=== PATIENT | female | born 1960 | race African-American/Black ===

== ENCOUNTER 2019-09-13 08:34 | Inpatient (IN) | payer OTHER ==
[2019-09-13] VITALS (13 sets, daily range): BP systolic 91–132; BP diastolic 55–94
[~2019-09-13] VITALS: Ht 165.1 cm; Wt 72.6 kg
--- OUTSIDE RECORDS SUMMARY | 2019-09-13 08:38 | XMS REPORT ---
Author Author [facility] Organization [facility] Address [address] [place] [address] [place] [id number] Phone Unavailable Care Team Providers Care Managed Care Director Name Role Phone JOEL VENTURA Attphys Unavailable JOEL VENTURA Admphys Unavailable Problems This patient has no known problems. Allergies, Adverse Reactions, Alerts This patient has no known allergies or adverse reactions. Medications This patient has no known medications. Procedures This patient has no known procedures. Results Test Description Test Time Test Comments Results Result Comments Source BLOOD CULTURE 2016-09-29 06:00:00 Test Item CULTURE (BEAKER) (test code = 1095) No growth in 5 days BLOOD [id number] 06:00:00* Test Item Value Reference Range Interpretation Comments CULTURE (BEAKER) (test code = 1095) No growth in 5 days POCT-GLUCOSE [id number] 05:39:00* Test Item Value Reference Range Interpretation Comments POC-GLUCOSE METER (BEAKER) (test code = 1538) 148 mg/dL 70-110 H TESTED AT [address] [address] POCT-GLUCOSE [id number] 05:28:00* Test Item Value Reference Range Interpretation Comments POC-GLUCOSE METER (BEAKER) (test code = 1538) 123 mg/dL 70-110 H TESTED AT [address] [address] POCT-GLUCOSE [id number] 05:04:00* Test Item Value Reference Range Interpretation Comments POC-GLUCOSE METER (BEAKER) (test code = 1538) 149 mg/dL 70-110 H TESTED AT [address] [address] POCT-GLUCOSE [id number] 05:02:00* Test Item Value Reference Range Interpretation Comments POC-GLUCOSE METER (BEAKER) (test code = 1538) 108 mg/dL 70-110 TESTED AT [address] [address] POCT-GLUCOSE [id number] 05:02:00* Test Item Value Reference Range Interpretation Comments POC-GLUCOSE METER (BEAKER) (test code = 1538) 140 mg/dL 70-110 H TESTED AT [facility] [address] [facility] [address] POCT-GLUCOSE [id number] 04:58:00* Test Item Value Reference Range Interpretation Comments POC-GLUCOSE METER (BEAKER) (test code = 1538) 186 mg/dL 70-110 H TESTED AT [facility] [address] [facility] [address] BASIC METABOLIC [id number] 15:14:00* Test Item Value Reference Range Interpretation Comments SODIUM (BEAKER) (test code = 381) 139 meq/L 136-145 POTASSIUM (BEAKER) (test code = 379) 3.5 meq/L 3.5-5.1 CHLORIDE (BEAKER) (test code = 382) 111 meq/L 98-107 H CO2 (BEAKER) (test code = 355) 20 meq/L 22-29 L BLOOD UREA NITROGEN (BEAKER) (test code = 354) 6 mg/dL 7-21 L CREATININE (BEAKER) (test code = 358) 0.62 mg/dL 0.57-1.25 GLUCOSE RANDOM (BEAKER) (test code = 652) 133 mg/dL 70-105 H CALCIUM (BEAKER) (test code = 697) 8.4 mg/dL 8.4-10.2 EGFR (BEAKER) (test code = 1092) 120 mL/min/1.73 sq m ESTIMATED GFR IS NOT ACCURATE CREATININE CLEARANCE IN PREDICTING GLOMERULAR FILTRATION RATE. ESTIMATED GFR IS NOT APPLICABLE FOR DIALYSIS PATIENTS. VANCOMYCIN LEVEL, [id number] 05:09:00* Test Item Value Reference Range Interpretation Comments VANCOMYCIN TROUGH (BEAKER) (test code = 522) 7.8 ug/mL 10.0-20.0 L CBC W/PLT COUNT & AUTO [id number] 01:43:00* Test Item Value Reference Range Interpretation Comments WHITE BLOOD CELL COUNT (BEAKER) (test code = 775) 7.6 K/ L 4.0- 10.0 RED BLOOD CELL COUNT (BEAKER) (test code = 761) 2.34 M/ L 4.00-5 .00 L HEMOGLOBIN (BEAKER) (test code = 410) 8.4 GM/DL 12.0-15.0 L HEMATOCRIT (BEAKER) (test code = 411) 23.8 % 36.0-45.0 L MEAN CORPUSCULAR VOLUME (BEAKER) (test code = 753) 102.0 fL 82. 0-99.0 H MEAN CORPUSCULAR HEMOGLOBIN (BEAKER) (test code = 751) 35.7 pg 27.0-33.0 H MEAN CORPUSCULAR HEMOGLOBIN CONC (BEAKER) (test code = 752) 35.1 GM/DL 32.0-36.0 RED CELL DISTRIBUTION WIDTH (BEAKER) (test code = 412) 11.8 % 10.3-14.2 PLATELET COUNT (BEAKER) (test code = 756) 186 K/CU MM 150-430 MEAN PLATELET VOLUME (BEAKER) (test code = 754) 6.5 fL 6.5-10 .5 NEUTROPHILS RELATIVE PERCENT (BEAKER) (test code = 429) 61 % LYMPHOCYTES RELATIVE PERCENT (BEAKER) (test code = 430) 20 % MONOCYTES RELATIVE PERCENT (BEAKER) (test code = 431) 16 % EOSINOPHILS RELATIVE PERCENT (BEAKER) (test code = 432) 3 % BASOPHILS RELATIVE PERCENT (BEAKER) (test code = 437) 0 % NEUTROPHILS ABSOLUTE COUNT (BEAKER) (test code = 670) K/ L 1.80-8.00 LYMPHOCYTES ABSOLUTE COUNT (BEAKER) (test code = 414) K/ L 1.48-4.50 MONOCYTES ABSOLUTE COUNT (BEAKER) (test code = 415) K/ L 0. 00-1.30 EOSINOPHILS ABSOLUTE COUNT (BEAKER) (test code = 416) K/ L 0.00-0.50 BASOPHILS ABSOLUTE COUNT (BEAKER) (test code = 417) K/ L 0. 00-0.20 CBC W/PLT COUNT & AUTO [id number] 05:51:00* Test Item Value Reference Range Interpretation Comments WHITE BLOOD CELL COUNT (BEAKER) (test code = 775) 8.3 K/ L 4.0- 10.0 RED BLOOD CELL COUNT (BEAKER) (test code = 761) 2.42 M/ L 4.00-5 .00 L HEMOGLOBIN (BEAKER) (test code = 410) 8.3 GM/DL 12.0-15.0 L HEMATOCRIT (BEAKER) (test code = 411) 24.6 % 36.0-45.0 L MEAN CORPUSCULAR VOLUME (BEAKER) (test code = 753) 102.0 fL 82. 0-99.0 H MEAN CORPUSCULAR HEMOGLOBIN (BEAKER) (test code = 751) 34.4 pg 27.0-33.0 H MEAN CORPUSCULAR HEMOGLOBIN CONC (BEAKER) (test code = 752) 33.8 GM/DL 32.0-36.0 RED CELL DISTRIBUTION WIDTH (BEAKER) (test code = 412) 11.7 % 10.3-14.2 PLATELET COUNT (BEAKER) (test code = 756) 180 K/CU MM 150-430 MEAN PLATELET VOLUME (BEAKER) (test code = 754) 7.5 fL 6.5-10 .5 NUCLEATED RED BLOOD CELLS (BEAKER) (test code = 413) 0 /100 WBC 0 -0 NEUTROPHILS RELATIVE PERCENT (BEAKER) (test code = 429) 69 % LYMPHOCYTES RELATIVE PERCENT (BEAKER) (test code = 430) 18 % MONOCYTES RELATIVE PERCENT (BEAKER) (test code = 431) 11 % EOSINOPHILS RELATIVE PERCENT (BEAKER) (test code = 432) 3 % BASOPHILS RELATIVE PERCENT (BEAKER) (test code = 437) 0 % NEUTROPHILS ABSOLUTE COUNT (BEAKER) (test code = 670) 5.73 K/ L 1.80-8.00 LYMPHOCYTES ABSOLUTE COUNT (BEAKER) (test code = 414) 1.46 K/ L 1.48-4.50 L MONOCYTES ABSOLUTE COUNT (BEAKER) (test code = 415) 0.92 K/ L 0. 00-1.30 EOSINOPHILS ABSOLUTE COUNT (BEAKER) (test code = 416) 0.21 K/ L 0.00-0.50 BASOPHILS ABSOLUTE COUNT (BEAKER) (test code = 417) 0.01 K/ L 0. 00-0.20 [id number] 05:51:00* Test Item Value Reference Range Interpretation Comments MAGNESIUM (BEAKER) (test code = 627) 2.3 mg/dL 1.6-2.6 BASIC METABOLIC [id number] 05:51:00* Test Item Value Reference Range Interpretation Comments SODIUM (BEAKER) (test code = 381) 138 meq/L 136-145 POTASSIUM (BEAKER) (test code = 379) 3.6 meq/L 3.5-5.1 CHLORIDE (BEAKER) (test code = 382) 108 meq/L 98-107 H CO2 (BEAKER) (test code = 355) 24 meq/L 22-29 BLOOD UREA NITROGEN (BEAKER) (test code = 354) 8 mg/dL 7-21 CREATININE (BEAKER) (test code = 358) 0.67 mg/dL 0.57-1.25 GLUCOSE RANDOM (BEAKER) (test code = 652) 136 mg/dL 70-105 H CALCIUM (BEAKER) (test code = 697) 8.1 mg/dL 8.4-10.2 L EGFR (BEAKER) (test code = 1092) 110 mL/min/1.73 sq m ESTIMATED GFR IS NOT ACCURATE CREATININE CLEARANCE IN PREDICTING GLOMERULAR FILTRATION RATE. ESTIMATED GFR IS NOT APPLICABLE FOR DIALYSIS PATIENTS. POCT-GLUCOSE [id number] 20:50:00* Test Item Value Reference Range Interpretation Comments POC-GLUCOSE METER (BEAKER) (test code = 1538) 124 mg/dL 70-110 H TESTED AT [address] [address] POCT-GLUCOSE [id number] 17:58:00* Test Item Value Reference Range Interpretation Comments POC-GLUCOSE METER (BEAKER) (test code = 1538) 141 mg/dL 70-110 H TESTED AT [address] [address] URINALYSIS W/ [id number] 17:32:00* Test Item Value Reference Range Interpretation Comments COLOR (BEAKER) (test code = 470) Yellow CLARITY (BEAKER) (test code = 469) Clear SPECIFIC GRAVITY UA (BEAKER) (test code = 468) 1.012 1.001-1 .035 PH UA (BEAKER) (test code = 467) 6.0 5.0-8.0 PROTEIN UA (BEAKER) (test code = 464) Negative Negative GLUCOSE UA (BEAKER) (test code = 365) Negative Negative KETONES UA (BEAKER) (test code = 371) Negative Negative BILIRUBIN UA (BEAKER) (test code = 462) Negative Negative BLOOD UA (BEAKER) (test code = 461) Negative Negative NITRITE UA (BEAKER) (test code = 465) Negative Negative LEUKOCYTE ESTERASE UA (BEAKER) (test code = 466) Negative Negat dwain UROBILINOGEN UA (BEAKER) (test code = 463) 0.2 mg/dL 0.2-1.0 RBC UA (BEAKER) (test code = 519) < /HPF WBC UA (BEAKER) (test code = 520) 1 /HPF MUCUS (BEAKER) (test code = 1574) Rare SQUAMOUS EPITHELIAL (BEAKER) (test code = 516) < /HPF SOURCE(BEAKER) (test code = 2795) Urine, Voided LACTIC ACID, VENOUS, WHOLE [id number] 13:25:00* Test Item Value Reference Range Interpretation Comments LACTATE BLOOD VENOUS (2) (BEAKER) (test code = 2872) 2.2 mmol/L 0 .5-2.2 Effective 08/19/2015: Units/Reference Range ChangeNew: 0.5-2.2 mmol/L Previous: 5 -20 mg/dLPOCT-GLUCOSE [id number] 12:23:00* Test Item Value Reference Range Interpretation Comments POC-GLUCOSE METER (BEAKER) (test code = 1538) 166 mg/dL 70-110 H TESTED AT [facility] [address] [facility] [address] POCT-GLUCOSE [id number] 08:05:00* Test Item Value Reference Range Interpretation Comments POC-GLUCOSE METER (BEAKER) (test code = 1538) 149 mg/dL 70-110 H TESTED AT [address] [address] CBC (HEMOGRAM ONLY)2016-09-23 05:57:00* Test Item Value Reference Range Interpretation Comments WHITE BLOOD CELL COUNT (BEAKER) (test code = 775) 9.6 K/ L 4.0- 10.0 RED BLOOD CELL COUNT (BEAKER) (test code = 761) 2.62 M/ L 4.00-5 .00 L HEMOGLOBIN (BEAKER) (test code = 410) 8.8 GM/DL 12.0-15.0 L HEMATOCRIT (BEAKER) (test code = 411) 26.4 % 36.0-45.0 L MEAN CORPUSCULAR VOLUME (BEAKER) (test code = 753) 101.0 fL 82. 0-99.0 H MEAN CORPUSCULAR HEMOGLOBIN (BEAKER) (test code = 751) 33.8 pg 27.0-33.0 H MEAN CORPUSCULAR HEMOGLOBIN CONC (BEAKER) (test code = 752) 33.5 GM/DL 32.0-36.0 RED CELL DISTRIBUTION WIDTH (BEAKER) (test code = 412) 11.6 % 10.3-14.2 PLATELET COUNT (BEAKER) (test code = 756) 131 K/CU MM 150-430 L MEAN PLATELET VOLUME (BEAKER) (test code = 754) 7.7 fL 6.5-10 .5 NUCLEATED RED BLOOD CELLS (BEAKER) (test code = 413) 0 /100 WBC 0 -0 [id number] 05:32:00* Test Item Value Reference Range Interpretation Comments MAGNESIUM (BEAKER) (test code = 627) 2.2 mg/dL 1.6-2.6 BASIC METABOLIC [id number] 05:32:00* Test Item Value Reference Range Interpretation Comments SODIUM (BEAKER) (test code = 381) 135 meq/L 136-145 L POTASSIUM (BEAKER) (test code = 379) 4.2 meq/L 3.5-5.1 CHLORIDE (BEAKER) (test code = 382) 104 meq/L 98-107 CO2 (BEAKER) (test code = 355) 25 meq/L 22-29 BLOOD UREA NITROGEN (BEAKER) (test code = 354) 8 mg/dL 7-21 CREATININE (BEAKER) (test code = 358) 0.64 mg/dL 0.57-1.25 GLUCOSE RANDOM (BEAKER) (test code = 652) 144 mg/dL 70-105 H CALCIUM (BEAKER) (test code = 697) 8.4 mg/dL 8.4-10.2 EGFR (BEAKER) (test code = 1092) 116 mL/min/1.73 sq m ESTIMATED GFR IS NOT ACCURATE CREATININE CLEARANCE IN PREDICTING GLOMERULAR FILTRATION RATE. ESTIMATED GFR IS NOT APPLICABLE FOR DIALYSIS PATIENTS. POCT-GLUCOSE [id number] 21:29:00* Test Item Value Reference Range Interpretation Comments POC-GLUCOSE METER (BEAKER) (test code = 1538) 177 mg/dL 70-110 H TESTED AT [facility] [address] [facility] [address] POCT-GLUCOSE [id number] 18:29:00* Test Item Value Reference Range Interpretation Comments POC-GLUCOSE METER (BEAKER) (test code = 1538) 181 mg/dL 70-110 H TESTED AT [facility] [address] [facility] [address] POCT-GLUCOSE [id number] 12:20:00* Test Item Value Reference Range Interpretation Comments POC-GLUCOSE METER (BEAKER) (test code = 1538) 176 mg/dL 70-110 H TESTED AT [facility] [address] [facility] [address] HEMOGLOBIN [id number] 10:30:00* Test Item Value Reference Range Interpretation Comments HEMOGLOBIN A1C (BEAKER) (test code = 368) 7.1 % 4.3-6.1 H POCT-GLUCOSE [id number] 08:06:00* Test Item Value Reference Range Interpretation Comments POC-GLUCOSE METER (BEAKER) (test code = 1538) 145 mg/dL 70-110 H TESTED AT [facility] [address] [facility] [address] TSH/FREE T4 IF [id number] 07:41:00* Test Item Value Reference Range Interpretation Comments THYROID STIMULATING HORMONE (BEAKER) (test code = 772) 1.20 uIU/mL 0.35-4.94 CBC (HEMOGRAM ONLY)2016-09-22 07:10:00* Test Item Value Reference Range Interpretation Comments WHITE BLOOD CELL COUNT (BEAKER) (test code = 775) 8.9 K/ L 4.0- 10.0 RED BLOOD CELL COUNT (BEAKER) (test code = 761) 2.91 M/ L 4.00-5 .00 L HEMOGLOBIN (BEAKER) (test code = 410) 9.8 GM/DL 12.0-15.0 L HEMATOCRIT (BEAKER) (test code = 411) 29.5 % 36.0-45.0 L MEAN CORPUSCULAR VOLUME (BEAKER) (test code = 753) 101.0 fL 82. 0-99.0 H MEAN CORPUSCULAR HEMOGLOBIN (BEAKER) (test code = 751) 33.8 pg 27.0-33.0 H MEAN CORPUSCULAR HEMOGLOBIN CONC (BEAKER) (test code = 752) 33.4 GM/DL 32.0-36.0 RED CELL DISTRIBUTION WIDTH (BEAKER) (test code = 412) 11.4 % 10.3-14.2 PLATELET COUNT (BEAKER) (test code = 756) 119 K/CU MM 150-430 L MEAN PLATELET VOLUME (BEAKER) (test code = 754) 8.0 fL 6.5-10 .5 NUCLEATED RED BLOOD CELLS (BEAKER) (test code = 413) 0 /100 WBC 0 -0 [id number] 06:44:00* Test Item Value Reference Range Interpretation Comments PHOSPHORUS (BEAKER) (test code = 604) 2.6 mg/dL 2.3-4.7 [id number] 06:44:00* Test Item Value Reference Range Interpretation Comments MAGNESIUM (BEAKER) (test code = 627) 1.9 mg/dL 1.6-2.6 BASIC METABOLIC [id number] 06:44:00* Test Item Value Reference Range Interpretation Comments SODIUM (BEAKER) (test code = 381) 134 meq/L 136-145 L POTASSIUM (BEAKER) (test code = 379) 4.0 meq/L 3.5-5.1 CHLORIDE (BEAKER) (test code = 382) 103 meq/L 98-107 CO2 (BEAKER) (test code = 355) 25 meq/L 22-29 BLOOD UREA NITROGEN (BEAKER) (test code = 354) 7 mg/dL 7-21 CREATININE (BEAKER) (test code = 358) 0.64 mg/dL 0.57-1.25 GLUCOSE RANDOM (BEAKER) (test code = 652) 131 mg/dL 70-105 H CALCIUM (BEAKER) (test code = 697) 8.7 mg/dL 8.4-10.2 EGFR (BEAKER) (test code = 1092) 116 mL/min/1.73 sq m ESTIMATED GFR IS NOT ACCURATE CREATININE CLEARANCE IN PREDICTING GLOMERULAR FILTRATION RATE. ESTIMATED GFR IS NOT APPLICABLE FOR DIALYSIS PATIENTS. LIPID [id number] 06:44:00* Test Item Value Reference Range Interpretation Comments TRIGLYCERIDES (BEAKER) (test code = 540) 103 mg/dL CHOLESTEROL (BEAKER) (test code = 631) 101 mg/dL HDL CHOLESTEROL (BEAKER) (test code = 976) 38 mg/dL LDL CHOLESTEROL CALCULATED (BEAKER) (test code = 633) 42 mg/dL Triglyceride Reference Range: Low Risk <150 Borderline 150-199 High Risk 200-499 Very High Risk >=500Cholesterol Reference Range: Low Risk <200 Borderline 200-239 High Risk >240HDL Cholesterol Reference Range: Low Risk >=60 High Risk <40LDL Cholesterol Reference Range: Optimal <100 Near Optimal 100-129 Borderline 130-159 High 160-189 Very High >=190 HEPATIC FUNCTION [id number] 06:44:00* Test Item Value Reference Range Interpretation Comments TOTAL PROTEIN (BEAKER) (test code = 770) 5.8 gm/dL 6.0-8.3 L ALBUMIN (BEAKER) (test code = 1145) 3.1 g/dL 3.5-5.0 L BILIRUBIN TOTAL (BEAKER) (test code = 377) 0.8 mg/dL 0.2-1.2 BILIRUBIN DIRECT (BEAKER) (test code = 706) 0.4 mg/dL 0.1-0.5 ALKALINE PHOSPHATASE (BEAKER) (test code = 346) 60 U/L 40-150 AST (SGOT) (BEAKER) (test code = 353) 34 U/L 5-34 ALT (SGPT) (BEAKER) (test code = 347) 19 U/L 6-55 POCT-GLUCOSE [id number] 21:51:00* Test Item Value Reference Range Interpretation Comments POC-GLUCOSE METER (BEAKER) (test code = 1538) 165 mg/dL 70-110 H TESTED AT [address] [address] POCT-GLUCOSE [id number] 16:59:00* Test Item Value Reference Range Interpretation Comments POC-GLUCOSE METER (BEAKER) (test code = 1538) 156 mg/dL 70-110 H TESTED AT [address] [address] POCT-GLUCOSE [id number] 12:25:00* Test Item Value Reference Range Interpretation Comments POC-GLUCOSE METER (BEAKER) (test code = 1538) 169 mg/dL 70-110 H TESTED AT [address] [address] POCT-GLUCOSE [id number] 07:50:00* Test Item Value Reference Range Interpretation Comments POC-GLUCOSE METER (BEAKER) (test code = 1538) 145 mg/dL 70-110 H TESTED AT [address] [address] POCT-GLUCOSE [id number] 06:23:00* Test Item Value Reference Range Interpretation Comments POC-GLUCOSE METER (BEAKER) (test code = 1538) 125 mg/dL 70-110 H TESTED AT [address] [address] POCT-GLUCOSE [id number] 04:41:00* Test Item Value Reference Range Interpretation Comments POC-GLUCOSE METER (BEAKER) (test code = 1538) 116 mg/dL 70-110 H TESTED AT [address] [address] POCT-GLUCOSE [id number] 03:44:00* Test Item Value Reference Range Interpretation Comments POC-GLUCOSE METER (BEAKER) (test code = 1538) 119 mg/dL 70-110 H TESTED AT [address] [address] POCT-GLUCOSE [id number] 03:44:00* Test Item Value Reference Range Interpretation Comments POC-GLUCOSE METER (BEAKER) (test code = 1538) 123 mg/dL 70-110 H TESTED AT [address] [address] POCT-GLUCOSE [id number] 03:44:00* Test Item Value Reference Range Interpretation Comments POC-GLUCOSE METER (BEAKER) (test code = 1538) 175 mg/dL 70-110 H TESTED AT [address] [address] BASIC METABOLIC [id number] 03:16:00* Test Item Value Reference Range Interpretation Comments SODIUM (BEAKER) (test code = 381) 138 meq/L 136-145 POTASSIUM (BEAKER) (test code = 379) 4.2 meq/L 3.5-5.1 Specimen slightly hemolyzed CHLORIDE (BEAKER) (test code = 382) 111 meq/L 98-107 H CO2 (BEAKER) (test code = 355) 20 meq/L 22-29 L BLOOD UREA NITROGEN (BEAKER) (test code = 354) 6 mg/dL 7-21 L CREATININE (BEAKER) (test code = 358) 0.67 mg/dL 0.57-1.25 Specimen slightly hemolyzed GLUCOSE RANDOM (BEAKER) (test code = 652) 115 mg/dL 70-105 H CALCIUM (BEAKER) (test code = 697) 7.8 mg/dL 8.4-10.2 L EGFR (BEAKER) (test code = 1092) 110 mL/min/1.73 sq m ESTIMATED GFR IS NOT ACCURATE CREATININE CLEARANCE IN PREDICTING GLOMERULAR FILTRATION RATE. ESTIMATED GFR IS NOT APPLICABLE FOR DIALYSIS PATIENTS. [id number] 03:00:00* Test Item Value Reference Range Interpretation Comments MAGNESIUM (BEAKER) (test code = 627) 2.4 mg/dL 1.6-2.6 Specimen slightly hemolyzed [id number] 03:00:00* Test Item Value Reference Range Interpretation Comments PHOSPHORUS (BEAKER) (test code = 604) 3.3 mg/dL 2.3-4.7 Specimen slightly hemolyzed CBC (HEMOGRAM ONLY)2016-09-21 02:54:00* Test Item Value Reference Range Interpretation Comments WHITE BLOOD CELL COUNT (BEAKER) (test code = 775) 9.3 K/ L 4.0- 10.0 RED BLOOD CELL COUNT (BEAKER) (test code = 761) 2.90 M/ L 4.00-5 .00 L HEMOGLOBIN (BEAKER) (test code = 410) 10.1 GM/DL 12.0-15.0 L HEMATOCRIT (BEAKER) (test code = 411) 29.3 % 36.0-45.0 L MEAN CORPUSCULAR VOLUME (BEAKER) (test code = 753) 101.0 fL 82. 0-99.0 H MEAN CORPUSCULAR HEMOGLOBIN (BEAKER) (test code = 751) 35.0 pg 27.0-33.0 H MEAN CORPUSCULAR HEMOGLOBIN CONC (BEAKER) (test code = 752) 34.6 GM/DL 32.0-36.0 RED CELL DISTRIBUTION WIDTH (BEAKER) (test code = 412) 11.6 % 10.3-14.2 PLATELET COUNT (BEAKER) (test code = 756) 110 K/CU MM 150-430 L MEAN PLATELET VOLUME (BEAKER) (test code = 754) 7.4 fL 6.5-10 .5 NUCLEATED RED BLOOD CELLS (BEAKER) (test code = 413) 0 /100 WBC 0 -0 0.00POCT-GLUCOSE [id number] 00:28:00* Test Item Value Reference Range Interpretation Comments POC-GLUCOSE METER (BEAKER) (test code = 1538) 156 mg/dL 70-110 H TESTED AT [address] [address] POCT-GLUCOSE [id number] 23:29:00* Test Item Value Reference Range Interpretation Comments POC-GLUCOSE METER (BEAKER) (test code = 1538) 184 mg/dL 70-110 H TESTED AT [address] [address] POCT-GLUCOSE [id number] 21:54:00* Test Item Value Reference Range Interpretation Comments POC-GLUCOSE METER (BEAKER) (test code = 1538) 138 mg/dL 70-110 H TESTED AT [address] [address] POCT-GLUCOSE [id number] 21:00:00* Test Item Value Reference Range Interpretation Comments POC-GLUCOSE METER (BEAKER) (test code = 1538) 158 mg/dL 70-110 H TESTED AT [address] [address] POCT-GLUCOSE [id number] 21:00:00* Test Item Value Reference Range Interpretation Comments POC-GLUCOSE METER (BEAKER) (test code = 1538) 172 mg/dL 70-110 H TESTED AT [address] [address] POCT-GLUCOSE [id number] 21:00:00* Test Item Value Reference Range Interpretation Comments POC-GLUCOSE METER (BEAKER) (test code = 1538) 96 mg/dL 70-110 TESTED AT [address] [address] POCT-GLUCOSE [id number] 21:00:00* Test Item Value Reference Range Interpretation Comments POC-GLUCOSE METER (BEAKER) (test code = 1538) 126 mg/dL 70-110 H TESTED AT [address] [address] POCT-GLUCOSE [id number] 17:34:00* Test Item Value Reference Range Interpretation Comments POC-GLUCOSE METER (BEAKER) (test code = 1538) 106 mg/dL 70-110 TESTED AT [address] [address] POCT-GLUCOSE [id number] 15:52:00* Test Item Value Reference Range Interpretation Comments POC-GLUCOSE METER (BEAKER) (test code = 1538) 157 mg/dL 70-110 H TESTED AT [address] [address] POCT-GLUCOSE [id number] 15:52:00* Test Item Value Reference Range Interpretation Comments POC-GLUCOSE METER (BEAKER) (test code = 1538) 122 mg/dL 70-110 H TESTED AT [place] [id number] [facility] [address] POCT-GLUCOSE [id number] 15:52:00* Test Item Value Reference Range Interpretation Comments POC-GLUCOSE METER (BEAKER) (test code = 1538) 144 mg/dL 70-110 H TESTED AT [address] [address] BLOOD GAS, [id number] 14:42:00* Test Item Value Reference Range Interpretation Comments PH ARTERIAL (BEAKER) (test code = 383) 7.40 7.35-7.45 PCO2 ARTERIAL (BEAKER) (test code = 384) 36 mmHg 35-45 PO2 ARTERIAL (BEAKER) (test code = 385) 148 mmHg 80-90 H O2 SATURATION ARTERIAL (BEAKER) (test code = 386) 98.9 % 96.0 -97.0 H HCO3 ARTERIAL (BEAKER) (test code = 388) 22 mmol/L 21-29 BASE EXCESS ARTERIAL (BEAKER) (test code = 387) -2.6 mmol/L -2.0-3 .0 L PATIENT TEMPERATURE (BEAKER) (test code = 1818) 37.0 C FIO2 (BEAKER) (test code = 1819) 40.0 % [id number] 11:41:00* Test Item Value Reference Range Interpretation Comments MAGNESIUM (BEAKER) (test code = 627) 3.4 mg/dL 1.6-2.6 H Specimen slightly hemolyzed [id number] 11:41:00* Test Item Value Reference Range Interpretation Comments PHOSPHORUS (BEAKER) (test code = 604) 3.3 mg/dL 2.3-4.7 Specimen slightly hemolyzed [id number] 11:41:00* Test Item Value Reference Range Interpretation Comments POTASSIUM (BEAKER) (test code = 379) 3.9 meq/L 3.5-5.1 Specimen slightly hemolyzed [id number] 11:41:00* Test Item Value Reference Range Interpretation Comments SODIUM (BEAKER) (test code = 381) 143 meq/L 136-145 [id number] 11:41:00* Test Item Value Reference Range Interpretation Comments GLUCOSE RANDOM (BEAKER) (test code = 652) 161 mg/dL 70-105 H Effective 03/04/2014: Reference Range Change-Adult onlyNew: 70-105 Previous: 70-110LACTIC ACID, ARTERIAL, WHOLE [id number] 11:28:00* Test Item Value Reference Range Interpretation Comments LACTATE BLOOD ARTERIAL (2) (BEAKER) (test code = 2874) 1.4 mmol/L 0.5-2.2 Specimen slightly hemolyzed Effective 08/19/2015: Units/Reference Range ChangeNew: 0.5-2.2 mmol/L Previous: 5 -20 mg/dLCBC W/PLT COUNT & AUTO [id number] 11:28:00* Test Item Value Reference Range Interpretation Comments WHITE BLOOD CELL COUNT (BEAKER) (test code = 775) 8.3 K/ L 4.0- 10.0 RED BLOOD CELL COUNT (BEAKER) (test code = 761) 2.86 M/ L 4.00-5 .00 L HEMOGLOBIN (BEAKER) (test code = 410) 9.9 GM/DL 12.0-15.0 L HEMATOCRIT (BEAKER) (test code = 411) 28.4 % 36.0-45.0 L MEAN CORPUSCULAR VOLUME (BEAKER) (test code = 753) 99.5 fL 82. 0-99.0 H MEAN CORPUSCULAR HEMOGLOBIN (BEAKER) (test code = 751) 34.6 pg 27.0-33.0 H MEAN CORPUSCULAR HEMOGLOBIN CONC (BEAKER) (test code = 752) 34.8 GM/DL 32.0-36.0 RED CELL DISTRIBUTION WIDTH (BEAKER) (test code = 412) 12.7 % 10.3-14.2 PLATELET COUNT (BEAKER) (test code = 756) 99 K/CU MM 150-430 L MEAN PLATELET VOLUME (BEAKER) (test code = 754) 6.8 fL 6.5-10 .5 NUCLEATED RED BLOOD CELLS (BEAKER) (test code = 413) 0 /100 WBC 0 -0 NEUTROPHILS RELATIVE PERCENT (BEAKER) (test code = 429) 61 % LYMPHOCYTES RELATIVE PERCENT (BEAKER) (test code = 430) 33 % MONOCYTES RELATIVE PERCENT (BEAKER) (test code = 431) 5 % EOSINOPHILS RELATIVE PERCENT (BEAKER) (test code = 432) 1 % BASOPHILS RELATIVE PERCENT (BEAKER) (test code = 437) 1 % NEUTROPHILS ABSOLUTE COUNT (BEAKER) (test code = 670) 5.06 K/ L 1.80-8.00 LYMPHOCYTES ABSOLUTE COUNT (BEAKER) (test code = 414) 2.73 K/ L 1.48-4.50 MONOCYTES ABSOLUTE COUNT (BEAKER) (test code = 415) 0.38 K/ L 0. 00-1.30 EOSINOPHILS ABSOLUTE COUNT (BEAKER) (test code = 416) 0.08 K/ L 0.00-0.50 BASOPHILS ABSOLUTE COUNT (BEAKER) (test code = 417) 0.06 K/ L 0. 00-0.20 0.00BLOOD GAS, [id number] 11:06:00* Test Item Value Reference Range Interpretation Comments PH ARTERIAL (BEAKER) (test code = 383) 7.40 7.35-7.45 PCO2 ARTERIAL (BEAKER) (test code = 384) 35 mmHg 35-45 PO2 ARTERIAL (BEAKER) (test code = 385) 207 mmHg 80-90 H O2 SATURATION ARTERIAL (BEAKER) (test code = 386) 99.4 % 96.0 -97.0 H HCO3 ARTERIAL (BEAKER) (test code = 388) 21 mmol/L 21-29 BASE EXCESS ARTERIAL (BEAKER) (test code = 387) -3.4 mmol/L -2.0-3 .0 L PATIENT TEMPERATURE (BEAKER) (test code = 1818) 37.0 C FIO2 (BEAKER) (test code = 1819) 100.0 % OXYGEN SATURATION, [id number] 11:06:00* Test Item Value Reference Range Interpretation Comments O2 SATURATION (MEASURED) (BEAKER) (test code = 1455) 60.8 % From distal port of IJ central venous [id number] 10:23:00* Test Item Value Reference Range Interpretation Comments ACTIVATED CLOTTING TIME (BEAKER) (test code = 441) 131 sec TESTED AT [facility] [address] [facility] [address] [id number] 10:23:00* Test Item Value Reference Range Interpretation Comments ACTIVATED CLOTTING TIME (BEAKER) (test code = 441) 703 sec TESTED AT [address] [address] [id number] 10:23:00* Test Item Value Reference Range Interpretation Comments ACTIVATED CLOTTING TIME (BEAKER) (test code = 441) > sec OUTSIDE MEASURING RANGETESTED AT [address] [address] [id number] 10:23:00* Test Item Value Reference Range Interpretation Comments ACTIVATED CLOTTING TIME (BEAKER) (test code = 441) 580 sec TESTED AT [address] [address] [id number] 10:23:00* Test Item Value Reference Range Interpretation Comments ACTIVATED CLOTTING TIME (BEAKER) (test code = 441) 137 sec TESTED AT [place] [address] [id number] 10:03:00* Test Item Value Reference Range Interpretation Comments FIBRINOGEN LEVEL (BEAKER) (test code = 658) 200 mg/dl 225-434 L [id number] 09:49:00* Test Item Value Reference Range Interpretation Comments PARTIAL THROMBOPLASTIN TIME (BEAKER) (test code = 760) 34.8 seconds 22.5-36.0 PROTHROMBIN [id number] 09:48:00* Test Item Value Reference Range Interpretation Comments PROTIME (BEAKER) (test code = 759) 17.3 seconds 11.7-14.7 H INR (BEAKER) (test code = 370) 1.4 <=5.9 RECOMMENDED COUMADIN/WARFARIN INR THERAPY RANGESSTANDARD DOSE: 2.0 - 3.0 Inclu dinora: PROPHYLAXIS for venous thrombosis, systemic embolization; TREATMENT for alexandra ous thrombosis and/or pulmonary embolus.HIGH RISK: Target INR is 2.5-3.5 for pat ients with mechanical heart valves.PLATELET COUNT-STAT [id number] 09:48:00* Test Item Value Reference Range Interpretation Comments PLATELET COUNT (BEAKER) (test code = 756) 97 K/CU MM 150-430 L BLOOD GAS, [id number] 09:26:00* Test Item Value Reference Range Interpretation Comments PH ARTERIAL (BEAKER) (test code = 383) 7.47 7.35-7.45 H PCO2 ARTERIAL (BEAKER) (test code = 384) 30 mmHg 35-45 L PO2 ARTERIAL (BEAKER) (test code = 385) 351 mmHg 80-90 H O2 SATURATION ARTERIAL (BEAKER) (test code = 386) 99.8 % 96.0 -97.0 H HCO3 ARTERIAL (BEAKER) (test code = 388) 22 mmol/L 21-29 BASE EXCESS ARTERIAL (BEAKER) (test code = 387) -1.5 mmol/L -2.0-3 .0 PATIENT TEMPERATURE (BEAKER) (test code = 1818) 37.0 C FIO2 (BEAKER) (test code = 1819) 97.0 % GLUCOSE-STAT [id number] 09:26:00* Test Item Value Reference Range Interpretation Comments GLUCOSE RANDOM (BEAKER) (test code = 652) 176 mg/dL 70-110 H HGB/HCT (H&H) - STAT [id number] 09:26:00* Test Item Value Reference Range Interpretation Comments HEMOGLOBIN (BEAKER) (test code = 410) 8.4 g/dL 12.0-15.0 L HEMATOCRIT (BEAKER) (test code = 411) 25.0 % 36.0-45.0 L CALCIUM, [id number] 09:26:00* Test Item Value Reference Range Interpretation Comments CALCIUM IONIZED (BEAKER) (test code = 698) 1.00 mmol/L 1.12-1.27 L PH, BLOOD (BEAKER) (test code = 1810) 7.47 SODIUM NA-STAT [id number] 09:25:00* Test Item Value Reference Range Interpretation Comments SODIUM (BEAKER) (test code = 381) 137 meq/L 135-148 POTASSIUM-STAT [id number] 09:25:00* Test Item Value Reference Range Interpretation Comments POTASSIUM (BEAKER) (test code = 379) 4.1 meq/L 3.6-5.5 SODIUM NA-STAT [id number] 08:59:00* Test Item Value Reference Range Interpretation Comments SODIUM (BEAKER) (test code = 381) 136 meq/L 135-148 POTASSIUM-STAT [id number] 08:59:00* Test Item Value Reference Range Interpretation Comments POTASSIUM (BEAKER) (test code = 379) 4.3 meq/L 3.6-5.5 BLOOD GAS, [id number] 08:59:00* Test Item Value Reference Range Interpretation Comments PH ARTERIAL (BEAKER) (test code = 383) 7.52 7.35-7.45 H PCO2 ARTERIAL (BEAKER) (test code = 384) 31 mmHg 35-45 L PO2 ARTERIAL (BEAKER) (test code = 385) 327 mmHg 80-90 H O2 SATURATION ARTERIAL (BEAKER) (test code = 386) 99.8 % 96.0 -97.0 H HCO3 ARTERIAL (BEAKER) (test code = 388) 24 mmol/L 21-29 BASE EXCESS ARTERIAL (BEAKER) (test code = 387) 1.3 mmol/L -2.0-3 .0 PATIENT TEMPERATURE (BEAKER) (test code = 1818) 36.3 C FIO2 (BEAKER) (test code = 1819) 70.0 % GLUCOSE-STAT [id number] 08:59:00* Test Item Value Reference Range Interpretation Comments GLUCOSE RANDOM (BEAKER) (test code = 652) 152 mg/dL 70-110 H HGB/HCT (H&H) - STAT [id number] 08:59:00* Test Item Value Reference Range Interpretation Comments HEMOGLOBIN (BEAKER) (test code = 410) 7.9 g/dL 12.0-15.0 L HEMATOCRIT (BEAKER) (test code = 411) 23.0 % 36.0-45.0 L BLOOD GAS, [id number] 08:39:00* Test Item Value Reference Range Interpretation Comments PH ARTERIAL (BEAKER) (test code = 383) 7.35 7.35-7.45 PCO2 ARTERIAL (BEAKER) (test code = 384) 33 mmHg 35-45 L PO2 ARTERIAL (BEAKER) (test code = 385) 364 mmHg 80-90 H O2 SATURATION ARTERIAL (BEAKER) (test code = 386) 99.8 % 96.0 -97.0 H HCO3 ARTERIAL (BEAKER) (test code = 388) 19 mmol/L 21-29 L BASE EXCESS ARTERIAL (BEAKER) (test code = 387) -7.1 mmol/L -2.0-3 .0 L PATIENT TEMPERATURE (BEAKER) (test code = 1818) 31.4 C FIO2 (BEAKER) (test code = 1819) 70.0 % SODIUM NA-STAT [id number] 08:39:00* Test Item Value Reference Range Interpretation Comments SODIUM (BEAKER) (test code = 381) 132 meq/L 135-148 L GLUCOSE-STAT [id number] 08:39:00* Test Item Value Reference Range Interpretation Comments GLUCOSE RANDOM (BEAKER) (test code = 652) 127 mg/dL 70-110 H HGB/HCT (H&H) - STAT [id number] 08:39:00* Test Item Value Reference Range Interpretation Comments HEMOGLOBIN (BEAKER) (test code = 410) 7.2 g/dL 12.0-15.0 L HEMATOCRIT (BEAKER) (test code = 411) 21.0 % 36.0-45.0 L POTASSIUM-STAT [id number] 08:37:00* Test Item Value Reference Range Interpretation Comments POTASSIUM (BEAKER) (test code = 379) 4.4 meq/L 3.6-5.5 BLOOD GAS, [id number] 08:04:00* Test Item Value Reference Range Interpretation Comments PH ARTERIAL (BEAKER) (test code = 383) 7.43 7.35-7.45 PCO2 ARTERIAL (BEAKER) (test code = 384) 31 mmHg 35-45 L PO2 ARTERIAL (BEAKER) (test code = 385) 443 mmHg 80-90 H O2 SATURATION ARTERIAL (BEAKER) (test code = 386) 99.9 % 96.0 -97.0 H HCO3 ARTERIAL (BEAKER) (test code = 388) 20 mmol/L 21-29 L BASE EXCESS ARTERIAL (BEAKER) (test code = 387) -3.4 mmol/L -2.0-3 .0 L PATIENT TEMPERATURE (BEAKER) (test code = 1818) 37.0 C FIO2 (BEAKER) (test code = 1819) 50.0 % GLUCOSE-STAT [id number] 08:04:00* Test Item Value Reference Range Interpretation Comments GLUCOSE RANDOM (BEAKER) (test code = 652) 155 mg/dL 70-110 H SODIUM NA-STAT [id number] 08:03:00* Test Item Value Reference Range Interpretation Comments SODIUM (BEAKER) (test code = 381) 137 meq/L 135-148 POTASSIUM-STAT [id number] 08:03:00* Test Item Value Reference Range Interpretation Comments POTASSIUM (BEAKER) (test code = 379) 3.5 meq/L 3.6-5.5 L HGB/HCT (H&H) - STAT [id number] 08:03:00* Test Item Value Reference Range Interpretation Comments HEMOGLOBIN (BEAKER) (test code = 410) 12.4 g/dL 12.0-15.0 HEMATOCRIT (BEAKER) (test code = 411) 36.0 % 36.0-45.0 HEMOGLOBIN [id number] 10:55:00* Test Item Value Reference Range Interpretation Comments HEMOGLOBIN A1C (BEAKER) (test code = 368) 6.9 % 4.3-6.1 H BASIC METABOLIC [id number] 10:21:00* Test Item Value Reference Range Interpretation Comments SODIUM (BEAKER) (test code = 381) 142 meq/L 136-145 POTASSIUM (BEAKER) (test code = 379) 3.7 meq/L 3.5-5.1 CHLORIDE (BEAKER) (test code = 382) 108 meq/L 98-107 H CO2 (BEAKER) (test code = 355) 22 meq/L 22-29 BLOOD UREA NITROGEN (BEAKER) (test code = 354) 14 mg/dL 7-21 CREATININE (BEAKER) (test code = 358) 0.76 mg/dL 0.57-1.25 GLUCOSE RANDOM (BEAKER) (test code = 652) 169 mg/dL 70-105 H CALCIUM (BEAKER) (test code = 697) 9.6 mg/dL 8.4-10.2 EGFR (BEAKER) (test code = 1092) 95 mL/min/1.73 sq m ESTIMATED GFR IS NOT ACCURATE CREATININE CLEARANCE IN PREDICTING GLOMERULAR FILTRATION RATE. ESTIMATED GFR IS NOT APPLICABLE FOR DIALYSIS PATIENTS. CBC W/PLT COUNT & AUTO [id number] 10:20:00* Test Item Value Reference Range Interpretation Comments WHITE BLOOD CELL COUNT (BEAKER) (test code = 775) 6.1 K/ L 4.0- 10.0 RED BLOOD CELL COUNT (BEAKER) (test code = 761) 3.94 M/ L 4.00-5 .00 L HEMOGLOBIN (BEAKER) (test code = 410) 13.5 GM/DL 12.0-15.0 HEMATOCRIT (BEAKER) (test code = 411) 39.1 % 36.0-45.0 MEAN CORPUSCULAR VOLUME (BEAKER) (test code = 753) 99.2 fL 82. 0-99.0 H MEAN CORPUSCULAR HEMOGLOBIN (BEAKER) (test code = 751) 34.4 pg 27.0-33.0 H MEAN CORPUSCULAR HEMOGLOBIN CONC (BEAKER) (test code = 752) 34.6 GM/DL 32.0-36.0 RED CELL DISTRIBUTION WIDTH (BEAKER) (test code = 412) 11.6 % 10.3-14.2 PLATELET COUNT (BEAKER) (test code = 756) 174 K/CU MM 150-430 MEAN PLATELET VOLUME (BEAKER) (test code = 754) 6.7 fL 6.5-10 .5 NUCLEATED RED BLOOD CELLS (BEAKER) (test code = 413) 0 /100 WBC 0 -0 NEUTROPHILS RELATIVE PERCENT (BEAKER) (test code = 429) 54 % LYMPHOCYTES RELATIVE PERCENT (BEAKER) (test code = 430) 36 % MONOCYTES RELATIVE PERCENT (BEAKER) (test code = 431) 8 % EOSINOPHILS RELATIVE PERCENT (BEAKER) (test code = 432) 2 % BASOPHILS RELATIVE PERCENT (BEAKER) (test code = 437) 0 % NEUTROPHILS ABSOLUTE COUNT (BEAKER) (test code = 670) 3.26 K/ L 1.80-8.00 LYMPHOCYTES ABSOLUTE COUNT (BEAKER) (test code = 414) 2.15 K/ L 1.48-4.50 MONOCYTES ABSOLUTE COUNT (BEAKER) (test code = 415) 0.47 K/ L 0. 00-1.30 EOSINOPHILS ABSOLUTE COUNT (BEAKER) (test code = 416) 0.15 K/ L 0.00-0.50 BASOPHILS ABSOLUTE COUNT (BEAKER) (test code = 417) 0.02 K/ L 0. 00-0.20 0.00PROTHROMBIN [id number] 10:16:00* Test Item Value Reference Range Interpretation Comments PROTIME (BEAKER) (test code = 759) 14.0 seconds 11.7-14.7 INR (BEAKER) (test code = 370) 1.1 <=5.9 RECOMMENDED COUMADIN/WARFARIN INR THERAPY RANGESSTANDARD DOSE: 2.0 - 3.0 Inclu dinora: PROPHYLAXIS for venous thrombosis, systemic embolization; TREATMENT for alexandra ous thrombosis and/or pulmonary embolus.HIGH RISK: Target INR is 2.5-3.5 for pat ients with mechanical heart valves.
--- OUTSIDE RECORDS SUMMARY | 2019-09-13 08:38 | XMS REPORT | Clinical Summary ---
Author Author [facility] Address Unknown Phone Unavailable Care Team Providers Care Gill Box Fixer Name Role Phone Luke Santosh Chinchilla MD PCP Unavailab le Allergies No Known Allergies Medications End Date Status Medication Sig Dispensed Refills Start Date Active atorvastatin (LIPITOR) 80 Take 1 tablet 30 tablet 3 201 MG tablet (80 mg total) 7 by mouth daily. Active famotidine (PEPCID) 20 MG Take 1 tablet 60 tablet 3 tablet (20 mg total) 7 by mouth 2 (two) times daily. Active Problems Problem Noted Date Essential hypertension 09/21/2016 Mitral valve insufficiency 09/20/2016 Acute pulmonary insufficiency following thoracic surg keyla 09/20/2016 Acute blood loss as cause of postoperative anemia S/P mitral valve repair 09/20/2016 Coronary artery disease involving [place] coronary art keyla of [place] heart 09/09/2016 without angina pectoris Mitral regurgitation 09/09/2016 Abnormal stress test 07/28/2016 Family History Medical History Relation Name Comments Diabetes Brother Hypertension Brother Diabetes Father Hypertension Father Diabetes Mother Relation Name Status Comments Brother Father Mother Social History Date Tobacco Use Types Packs/Day Years Used Current Every Day Smoker 0.5 Smokeless Tobacco: Never Used Tobacco Cessation: Ready to Quit: Yes; C ounseling Given: Yes Alcohol Use Drinks/Week oz/Week Comments Yes 1 Cans of 1.2 beer 1 Shots of liquor Sex Assigned at Date Recorded Not on file Industry Job Start Date Occupation Not on file Not on file Not on file Travel End Travel History Travel Start No recent travel history available. Last Filed Vital Signs Not on file Plan of Treatment Health Maintenance Due Date Last Done Comments BREAST CANCER SCREENING 1959 COLON CANCER SCREENING 1959 COLONOSCOPY PNEUMOCOCCAL VACCINE 2-64 1965 YEARS AT RISK (1 of 1 - PPSV23) CERVICAL CANCER SCREENING 01/24/1980 PAP ONLY (Age 21-65) INFLUENZA VACCINE (Season 12/17/2019 Ended) Implants Device Identifier Shelf Expiration Date Model / Serial / L ot Implanted Type Area Manufactur er 12/13/2020 [id number] / [id number] / Ring Valve Mitrl Martel [id number] - Valves N/A: Chest [employer]: [id number] STRUCTURAL Implanted: Qty: 1 on 09/20/2016 by HEART Toyin, Gio Cedillo MD Results Not on fileafter 09/12/2018 Insurance Payer Benefit Subscriber ID Type Phone Address Plan / Group [employer] - MGD CARE [employer]H xxxxxxxxxxx HMO/POS NETWORK [id number] Advance Directives For more information, please contact: [facility] [address] [place] [address] Date Inactivated Comments Code Status Date Activated 09/26/2016 6:03 PM Full Code 09/20/2016 10:53 AM This code status was determined by: Patient 07/28/2016 8:58 PM Full Code 07/28/2016 7:24 AM This code status was determined by: Patient
[2019-09-13] MEDS ORDERED: CEFEPIME 2 GM/NS 0.9% 100 ML 100 ML IV ONE (09:00)
[2019-09-13] MEDS ORDERED: SODIUM CHLORIDE 0.9% 500ML 500 ML IV ONE (09:00)
[2019-09-13 09:14] LABS: BASOPHILS % 0.4 % (0.0-1.0); EOSINOPHILS # (AUTO) 0.2 (0.0-0.4); EOSINOPHILS % 2.6 % (0.0-6.0); HEMATOCRIT 29.5 % (34.2-44.1); HEMOGLOBIN 8.6 g/dL (12.0-16.0); LYMPHOCYTES # (AUTO) 2.4 (1.0-3.2); LYMPHOCYTES % 30.7 % (18.0-39.1); MEAN CORPUSCULAR HEMOGLOBIN 30.4 pg (28-32); MEAN CORPUSCULAR HGB CONC 29.2 g/dL (31-35); MEAN CORPUSCULAR VOLUME 104.2 fL (81-99); MONOCYTES # (AUTO) 1.6 (0.2-0.8); MONOCYTES % 20.4 % (4.4-11.3); NEUTROPHILS # (AUTO) 3.6 (2.1-6.9); NEUTROPHILS % 45.3 % (38.7-80.0); PLATELET COUNT 234 x10e3/uL (140-360); RED BLOOD COUNT 2.83 x10e6/uL (3.6-5.1); RED CELL DISTRIBUTION WIDTH 13.9 % (11.7-14.4)
--- NOTE | 2019-09-13 09:15 | NUR ---
patient changed into a clean gown. Patients trach also suctioned, approximately 100 mL of blood tinged fluid removed
[2019-09-13] MEDS ORDERED: AMIODARONE HCL200 MG PEG (09:20)
[2019-09-13] MEDS ORDERED: ATROPINE S0.4 MG/1 M IV (09:20)
[2019-09-13] MEDS ORDERED: SODIUM CHLORIDE 0.9% 1000ML 1,000 ML ONE (09:20)
[2019-09-13] MEDS ORDERED: FAMOTIDINE20 MG PEG (09:20)
[2019-09-13] MEDS ORDERED: LATANOPROST 0.7.5 ML (09:20)
[2019-09-13] MEDS ORDERED: ASPIR 8181 MG PEG (09:20)
[2019-09-13 09:30] LABS: INR 0.85; PROTHROMBIN TIME 12.1 seconds (11.9-14.5)
[2019-09-13] MEDS ORDERED: SODIUM CHLORIDE 0.9% 1000ML 1,000 ML IV SCH (09:30)
--- NOTE | 2019-09-13 09:30 | Diagnostic Imaging Report ---
EXAMINATION: CHEST SINGLE (PORTABLE) INDICATION: Shortness of breath COMPARISON: None FINDINGS: LINES/TUBES:Tracheostomy tube terminates in the midthoracic trachea. SOLID PLASTERER shunt partially visualized. LUNGS:Left lung is well-inflated. Right lung volume is low. Patchy opacities at the right upper lobe and right lower lobe. PLEURA:Large right pleural effusion. No pneumothorax. MEDIASTINUM:The cardiomediastinal silhouette appears normal in size and shape. BONES/SOFT TISSUES:No acute osseous injury. Sternotomy wires in place. ABDOMEN:No free air under the diaphragm. Cholecystectomy. IMPRESSION: Large right pleural effusion. Patchy opacities at the right upper and right lower lobes may represent atelectasis however superimposed aspiration or pneumonia could also have this appearance in the proper clinical setting. Signed by: Makenna Rivas MD on 09/13/2019 9:26 AM
[2019-09-13 09:31] LABS: PARTIAL THROMBOPLASTIN TIME 31.5 seconds (23.8-35.5)
[2019-09-13 09:34] LABS: ALANINE AMINOTRANSFERASE 51 IU/L (0-55); ALBUMIN 2.8 g/dL (3.5-5.0); ALBUMIN/GLOBULIN RATIO 0.7 (0.8-2.0); ALKALINE PHOSPHATASE 113 IU/L (40-150); ANION GAP 11.8 mmol/L (8-16); BLOOD UREA NITROGEN 22 mg/dL (7-26); BUN/CREATININE RATIO 46 (6-25); CALCIUM 10.1 mg/dL (8.4-10.2); CARBON DIOXIDE 39 mmol/L (22-29); CHLORIDE 93 mmol/L (98-107); CREATINE KINASE 19 IU/L (29-168); CREATININE, SERUM 0.48 mg/dL (0.57-1.11); EST GLOMERULAR FILTRATION RATE > 60 ML/MIN (60-); GLUCOSE 116 mg/dL (74-118); POTASSIUM 4.8 mmol/L (3.5-5.1); SODIUM 139 mmol/L (136-145)
--- OUTSIDE RECORDS SUMMARY | 2019-09-13 09:40 | XMS REPORT | Clinical Summary ---
Author Author [facility] Address Unknown Phone Unavailable Care Team Providers Care Cup Setter Lockstitch Name Role Phone Luke Santosh Chinchilla MD [...] valve repair 09/20/2016 Coronary artery disease involving [place] coronary art [place]yla of [place] heart 09/09/2016 without angina pectoris Mitral regurgitation [...] ot Implanted Type Area Manufactur er 12/13/2020 [id number] / [id number] / Ring Valve Mitrl Martel [id number] - Valves N/A: Chest [employer]: [id number] STRUCTURAL Implanted: Qty: 1 on 09/20/2016 by HEART Toyin, Gio Cedillo MD Results Not on fileafter 09/12/2018 Insurance Payer Benefit Subscriber ID Type Phone Address Plan / Group [employer] - [place]GD CARE [employer]H xxxxxxxxxxx HMO/POS NETWORK [id number] Advance Directives For more information, please contact: [facility] [address] [place] [address] Date Inactivated Comments Code Status Date Activated 09/26/2016 6:03 PM Full Code 09/20/2016 10:53 AM This code status was determined by: Patient 07/28/2016 8:58 PM Full Code 07/28/2016 7:24 AM This code status was determined by: Patient
--- OUTSIDE RECORDS SUMMARY | 2019-09-13 09:40 | XMS REPORT ---
Author Author [facility] t Organization [facility] Address [address] [place] [address] Phone Unavailable Care Team Providers Care Patternmaker Pressure Cast Name Role Phone Cortney GOYAL Attphys Unavailable JOEL VENTURA Attphys Unavailable KUMARTRIPP Walker Admphys Unavailable JOEL VENTURA Admphys Unavailable Payers Payer Name Policy Type Policy Number Effective Date Expiration Date S ource Problems This patient has no known problems. Allergies, Adverse Reactions, Alerts Allergy Name Allergy Type Status Severity Reaction(s) Onset Date Inacti ve Date Treating Clinician Comments Source No Known Allergies DA Active U 2019-04-08 00:00:00 [facility] Medications This patient has no known medications. Procedures This patient has no known procedures. Results Test Description Test Time Test Comments Results Result Comments Source CHEST SINGLE (PORTABLE) 2019-09-13 09:24:00 [place] [address] Patient Name: MICHAELLE ADAM MR #: [id number] : 1960 Age/Sex: 59/F Req #: [id number] Adm Physician: Ordered by: VICENTA GOYAL MD Report #: [id number] Location: ER Room/Bed: Procedure: [id number] DX/CHEST SINGLE (PORTABLE) Exam Date: 09/13/19 Exam Time: 829 REPORT STATUS: Signed EXAMINATION: CHEST SINGLE (PORTABLE) INDICATION: Shortness of breath COMPARISON: None FINDINGS: LINES/TUBES:Tracheostomy tube terminates in the midthoracic trachea. NETWORK ACCOUNT MANAGER shunt partially visualized. LUNGS:Left lung is well-inflated. Right lung volume is low. Patchy opacities at the right upper lobe and right lower lobe. PLEURA:Large right pleural effusion. No pneumothorax. MEDIASTINUM:The cardiomediastinal silhouette appears normal in size and shape. BONES/SOFT TISSUES:No acute osseous injury. Sternotomy wires in place. ABDOMEN:No free air under the diaphragm. Cholecystectomy. IMPRESSION: Large right pleural effusion. Patchy opacities at the right upper and right lower lobes may represent atelectasis however superimposed aspiration or pneumonia could also have this appearance in the proper clinical setting. Signed by: Alessandra Bajwa MD on 09/13/2019 9:26 AM Dictated By: ALESSANDRA BAJWA MD 5 Transcribed By: HORTENCIA on 09/13/19925 COPY TO: VICENTA GOYAL MD - XR FEMUR MIN 2 VW RT 2019-06-19 18:26:00 Patie nt Name: MICHAELLE ADAM Unit No: [id number] EXAMS: CPT: [id number] XR FEMUR MIN 2 [place] [address] RADIOGRAPHS: Right femur, 2 view COMPARISON: None available CLINICAL HISTORY: FALL . FINDINGS: No acute fracture is seen. No bony destructive lesions seen. IMPRESSION: No acute disease. at 1826 Reported and signed by: Navid Smith MD CC: Lori Garrison DO Technologist: Kallie Vo Time: DAP (Gy m2): Air Kerma (mGy): Trscr Dt/Tm: 06/19/2019 (1825) by:Juno Orig Print D/T: S: 06/19/2019 (1829) BATCH NO: N/A Name: MICHAELLE ADAM [facility] Phys: Lori De La Paz FINANCE MANAGER [address] : 1960 Age: 59 Sex: F [place] [address] [facility] No: [id number] Loc: N.ERS Exam Date: 06/19/2019 Status: PRE ER PH: FAX: PAGE 1 Signed Report GLUBED 2019-06-06 06:37:00 Test Item GLUBED (test code = GLUBED) 181 MG/DL 70-105 H BASIC METABOLIC [id number] 04:20:00* Test Item Value Reference Range Interpretation Comments SODIUM (test code = NA) 133 mmol/L 135-145 L POTASSIUM (test code = K) 4.3 mmol/L 3.6-5.0 CHLORIDE (test code = CL) 110 mmol/L 101-111 N CARBON DIOXIDE (test code = CO2) 20 mmol/L 21-31 L GLUCOSE (test code = GLU) 198 mg/dl 70-100 H BLOOD UREA NITROGEN (test code = BUN) 7 mg/dl 6-20 N GLOMERULAR FILTRATION RATE (test code = GFR) >=60 max estimate >60 The estimated glomerular filtration rate is computed usingpatient race, age (>18), sex, and serum creatinine. If anyof the needed data elements are missing the Laboratory cannot compute an estimation of the glomerular filtration rate. CREATININE (test code = CREAT) 0.56 mg/dL 0.44-1.03 N CALCIUM (test code = CA) 8.3 mg/dL 8.5-10.5 L CBC W/AUTO [id number] 04:12:00* Test Item Value Reference Range Interpretation Comments WHITE BLOOD CELL (test code = WBC) 3.6 x10 3/uL 3.2-11.5 N RED BLOOD CELL (test code = RBC) 3.69 x10(6)/m 3.70-5.10 L HEMOGLOBIN (test code = HGB) 12.3 g/dL 12.0-15.0 N HEMATOCRIT (test code = HCT) 36.0 % 35.7-44.8 N MEAN CELL VOLUME (test code = MCV) 98 fL 80-100 N MEAN CELL HGB (test code = MCH) 33.3 pg 26.2-33.8 N MEAN CELL HGB CONCENTRATION (test code = MCHC) 34.2 g/dL 30.0-34 .0 H RED CELL DISTRIBUTION WIDTH (test code = RDW) 11.9 % 11.3-14. 5 N PLATELET COUNT (test code = PLT) 125 x10 3/uL 130-408 L MEAN PLATELET VOLUME (test code = MPV) 10.3 fL 8.6-12.6 N NEUTROPHIL % (test code = NT%) 46.7 % 40.0-70.0 N IMMATURE GRANULOCYTE % (test code = IG%) 0.3 % 0.0-2.0 N LYMPHOCYTE % (test code = LY%) 37.0 % 20-40 N MONOCYTE % (test code = MO%) 13.8 % 1-10 H EOSINOPHIL % (test code = EO%) 1.9 % 0.0-5.0 N BASOPHIL % (test code = BA%) 0.3 % 0.0-1.0 N NUCLEATED RBC % (test code = NRBC%) 0.0 % 0.0-0.9 N NEUTROPHIL # (test code = NT#) 1.7 x10 3/uL 1.6-7.2 N LYMPHOCYTE # (test code = LY#) 1.34 x10 3/uL 1.1-2.7 N MONOCYTE # (test code = MO#) 0.5 x10 3/uL 0.3-0.8 N EOSINOPHIL # (test code = EO#) 0.1 x10 3/uL 0.0-0.5 N BASOPHIL # (test code = BA#) 0.0 x10 3/uL 0.0-0.1 N [id number] 00:40:00* Test Item Value Reference Range Interpretation Comments GLUBED (test code = GLUBED) 128 MG/DL 70-105 H [id number] 23:06:00* Test Item Value Reference Range Interpretation Comments GLUBED (test code = GLUBED) 49 MG/DL 70-105 LL [id number] 15:32:00* Test Item Value Reference Range Interpretation Comments GLUBED (test code = GLUBED) 287 MG/DL 70-105 H - XR CHEST 1 [id number] 13:29:00Patient Name: MICHAELLE ADAM Unit No: [id number] EXAMS: CPT: [id number] XR CHEST 1 V 40318 Comparison study: 06/03/2019 History: AFIB RVR CHEST 1 VIEW FINDINGS: The lungs are clear. The heart size is magnified by the AP technique. The pulmonary vasculature is within normal limits. No pneumothorax or pleural effusion is present. No acute fracture is identified. Sternal wires and a prosthetic heart valve are present. IMPRESSION: 1. No acute abnormality is identified. at 1329 Reported and signed by: Jan Laura MD CC: Technologist: NILA Vo Time: DAP (Gy m2): Air Kerma (mGy): Trscr Dt/Tm: 06/05/2019 (1329) by:[email or web address] Orig Print D/T: S: 06/05/2019 (8412) BATCH NO: N/A Name: MICHAELLE ADAM [facility] Phys: Reyes Dobbs MD [address] [facility] : 1960 Age: 59 Sex: F [place] [address] Loc: N.0357 1 Exam Date: 06/05/2019 Status: ADM IN PH: FAX: PAGE 1 Signed Report - PULM VENT PERF [id number] 13:27:00Patient Name: MICHAELLE ADAM Unit No: [id number] EXAMS: CPT: [id number] PULM VENT PERF IMAG 99954 PULMONARY VENTILATION AND PERFUSION SCAN: HISTORY: Shortness of breath. Afib. COMPARISON: Plain film dated 06/03/2019 ISOTOPES: 9 mCi 133 Xenon gas, inhalation; 5 mCi 99mTc MAA, IV FINDINGS: 1. The pulmonary perfusion scan demonstrates a normal bilateral pattern of perfusion without mismatch segmental defect. 2. The ventilatory scan demonstrates a normal single breath, and equilibration with retention in bilateral lungs on the washout images suggesting air trapping. CONCLUSION: Low probability for pulmonary embolism. Suggestion of air trapping. at 1327 Reported and signed by: Deena Gomes MD CC: Sera Escobar MD Technologist: Jh Lopez Trscr Dt/Tm: 06/05/2019 (1327) by:[email or web address] Orig Print D/T: S: 06/05/2019 (1330) BATCH NO: N/A Name: MICHAELLE ADAM [facility] Phys: ASHLEYROWDYCash - Kane Escobarjr Garcia Cesar [address] : 1960 Age: 59 Sex: F [place], [place] [address] Loc: N.0357 1 Exam Date: 06/05/2019 Status: ADM IN PH: FAX: PAGE 1 Signed Report [id number] 11:05:00* Test Item Value Reference Range Interpretation Comments GLUBED (test code = GLUBED) 292 MG/DL 70-105 H [id number] 06:30:00* Test Item Value Reference Range Interpretation Comments GLUBED (test code = GLUBED) 71 MG/DL 70-105 N BASIC METABOLIC [id number] 05:05:00* Test Item Value Reference Range Interpretation Comments SODIUM (test code = NA) 135 mmol/L 135-145 N POTASSIUM (test code = K) 2.6 mmol/L 3.6-5.0 LL Cr itical Value reported toFirst Name:DINORAH Armando Name:KRISTINE READ BACK AND VERIFIEDby [facility], on 06/05/19, @ 5661. CHLORIDE (test code = CL) 107 mmol/L 101-111 N CARBON DIOXIDE (test code = CO2) 18 mmol/L 21-31 L GLUCOSE (test code = GLU) 186 mg/dl 70-100 H BLOOD UREA NITROGEN (test code = BUN) 7 mg/dl 6-20 N GLOMERULAR FILTRATION RATE (test code = GFR) >=60 max estimate >60 The estimated glomerular filtration rate is computed usingpatient race, age (>18), sex, and serum creatinine. If anyof the needed data elements are missing the Laboratory cannot compute an estimation of the glomerular filtration rate. CREATININE (test code = CREAT) 0.80 mg/dL 0.44-1.03 N CALCIUM (test code = CA) 8.0 mg/dL 8.5-10.5 L CBC W/AUTO [id number] 05:02:00* Test Item Value Reference Range Interpretation Comments WHITE BLOOD CELL (test code = WBC) 6.6 x10 3/uL 3.2-11.5 N RED BLOOD CELL (test code = RBC) 3.97 x10(6)/m 3.70-5.10 N HEMOGLOBIN (test code = HGB) 13.2 g/dL 12.0-15.0 HEMATOCRIT (test code = HCT) 38.5 % 35.7-44.8 N MEAN CELL VOLUME (test code = MCV) 97 fL 80-100 MEAN CELL HGB (test code = MCH) 33.2 pg 26.2-33.8 N MEAN CELL HGB CONCENTRATION (test code = MCHC) 34.3 g/dL 30.0-34 .0 H RED CELL DISTRIBUTION WIDTH (test code = RDW) 11.7 % 11.3-14. 5 N PLATELET COUNT (test code = PLT) 172 x10 3/uL 130-408 N MEAN PLATELET VOLUME (test code = MPV) 10.8 fL 8.6-12.6 N NEUTROPHIL % (test code = NT%) 60.8 % 40.0-70.0 N IMMATURE GRANULOCYTE % (test code = IG%) 0.2 % 0.0-2.0 N LYMPHOCYTE % (test code = LY%) 31.8 % 20-40 N MONOCYTE % (test code = MO%) 6.3 % 1-10 N EOSINOPHIL % (test code = EO%) 0.9 % 0.0-5.0 N BASOPHIL % (test code = BA%) 0.0 % 0.0-1.0 N NUCLEATED RBC % (test code = NRBC%) 0.0 % 0.0-0.9 N NEUTROPHIL # (test code = NT#) 4.0 x10 3/uL 1.6-7.2 N LYMPHOCYTE # (test code = LY#) 2.11 x10 3/uL 1.1-2.7 N MONOCYTE # (test code = MO#) 0.4 x10 3/uL 0.3-0.8 N EOSINOPHIL # (test code = EO#) 0.1 x10 3/uL 0.0-0.5 N BASOPHIL # (test code = BA#) 0.0 x10 3/uL 0.0-0.1 N [id number] 01:51:00* Test Item Value Reference Range Interpretation Comments GLUBED (test code = GLUBED) 297 MG/DL 70-105 H [id number] 20:31:00* Test Item Value Reference Range Interpretation Comments GLUBED (test code = GLUBED) 281 MG/DL 70-105 H [id number] 18:49:00* Test Item Value Reference Range Interpretation Comments GLUBED (test code = GLUBED) 239 MG/DL 70-105 H [id number] 15:27:00* Test Item Value Reference Range Interpretation Comments GLUBED (test code = GLUBED) 170 MG/DL 70-105 H [id number] 11:04:00* Test Item Value Reference Range Interpretation Comments GLUBED (test code = GLUBED) 168 MG/DL 70-105 H HGBA1C - GLYCOSYLATED [id number] 09:46:00* Test Item Value Reference Range Interpretation Comments GLYCOSYLATED HEMOGLOBIN (HA1C) (test code = GLYHGB) 15.2 % 4. 0-6.0 H Interpretive Data: Caution should be exercised when interpreting the HgbA1c in patients with hemolytic anemia, iron deficiency and when the total hemoglobin is < 9g/dL, due to a decrease in average age of red blood cells [id number] 06:24:00* Test Item Value Reference Range Interpretation Comments GLUBED (test code = GLUBED) 340 MG/DL 70-105 HH COMPREHENSIVE METABOLIC [id number] 04:57:00* Test Item Value Reference Range Interpretation Comments SODIUM (test code = NA) 130 mmol/L 135-145 L POTASSIUM (test code = K) 3.4 mmol/L 3.6-5.0 L CHLORIDE (test code = CL) 102 mmol/L 101-111 N CARBON DIOXIDE (test code = CO2) 12 mmol/L 21-31 L GLUCOSE (test code = GLU) 347 mg/dl 70-100 H BLOOD UREA NITROGEN (test code = BUN) 14 mg/dl 6-20 N GLOMERULAR FILTRATION RATE (test code = GFR) >=60 max estimate >60 The estimated glomerular filtration rate is computed usingpatient race, age (>18), sex, and serum creatinine. If anyof the needed data elements are missing the Laboratory cannot compute an estimation of the glomerular filtration rate. CREATININE (test code = CREAT) 0.95 mg/dL 0.44-1.03 N TOTAL PROTEIN (test code = PROT) 6.2 g/dL 6.7-8.2 L ALBUMIN (test code = ALB) 2.8 g/dL 3.2-5.5 L CALCIUM (test code = CA) 8.1 mg/dL 8.5-10.5 L BILIRUBIN TOTAL (test code = BILT) 2.20 mg/dL 0.2-1.3 H SGOT/AST (test code = AST) 70 U/L 10-42 H SGPT/ALT (test code = ALT) 53 U/L 10-60 N ALKALINE PHOSPHATASE (test code = ALKP) 93 U/L 42-121 N [id number] 02:20:00* Test Item Value Reference Range Interpretation Comments GLUBED (test code = GLUBED) 392 MG/DL 70-105 HH T4 [id number] 01:05:00* Test Item Value Reference Range Interpretation Comments T4 FREE (test code = T4F) 0.99 ng/dL 0.61-1.12 N THYROID REFLEX TO [id number] 01:05:00* Test Item Value Reference Range Interpretation Comments THYROID REFLEX TO FT4 (test code = TSHREFLEX) 6.913 uIU/ml 0.450-5. 330 H T4 [id number] 00:29:00* Test Item Value Reference Range Interpretation Comments T4 FREE (test code = T4F) ng/dL 0.61-1.12 THYROID REFLEX TO [id number] 00:29:00* Test Item Value Reference Range Interpretation Comments THYROID REFLEX TO FT4 (test code = TSHREFLEX) 6.913 uIU/ml 0.450-5. 330 H - CT ANGIO [id number] 22:56:00Patient Name: MICHAELLE ADAM Unit No: [id number] EXAMS: CPT: [id number] CT ANGIO NECK [address] CT ANGIOGRAPHY OF THE HEAD HISTORY: dizzy. COMPARISON:None. TECHNIQUE: Bolus tracking series followed by contrast-enhanced CT angiography of the head. Data set analyzed on a 3-D workstation with 3D image post processing. Noncontrast CT images also obtained. FINDINGS: The anterior, middle, and posterior cerebral arteries are patent. type left SUBJECT SCIENTIFIC RESEARCH compatible with normal variant. Vertebrobasilar system is patent. Right vertebral artery is dominant. Intracranial internal carotid arteries are patent. No aneurysmal dilatation seen. Visualized dural sinuses are patent. No enhancing brain lesions seen. No acute intracranial hemorrhage is seen on the noncontrast images. The ventricles are normal size and configuration. Mild mucosal thickening in the left maxillary sinus. Opacification of the right mastoid air cells and middle ear cavity. IMPRESSION: No large vessel occlusion or aneurysmal dilatation seen. CT ANGIOGRAPHY OF THE NECK WITH CONTRAST HISTORY: dizzy COMPARISON : None available. TECHNIQUE: Bolus tracking series followed by contrast-enhanced CT angiography of the neck. Data set analyzed on a 3-D workstation with 3Dimage post processing. Calculation of carotid steno sis is based on NASCET criteria. FINDINGS: ORIGINS OF THE GREAT VESSELS: Origins of the great vessels are patent. Subclavian arteries are patent. RIGHT COMMON CAROTID AR MALLORY: Approximately 40% stenosis in the right carotid bulb with calcifie d plaque present. Mild medial deviation of the distal common carotid ar mallory. RIGHT ICA: Vascular tortuosity otherwise no significant stenosis seen. LEFT COMMON CAROTID ARTERY: Questionable small intimal flap in the Name: MICHAELLE ADAM [facility] E D Phys: CHRIS. - Xavi Garrison [address] [facility] : 1960 Age: 59 Sex: [place] [address] Loc: N.ERS Exam Date: 06/03/2019 Status: REG ER PH: FAX: PAGE 1 Signed Report (CONTINUED) Patient Na me: MICHAELLE ADAM Unit No: [id number] EXAMS: CPT: [id number] CT ANGIO NECK [address] <Continued> carotid bulb and small calcified plaques noted without significant stenosis. LEFT ICA: Vascular tortuosity otherwise no significant stenosis seen. BILATERAL EXTERNAL CAROTID ARTERIES: Mild atherosclerotic disease in the origin of the right external carotid artery with mild luminal narrowing. VERTEBRAL ARTERIES: Right vertebral artery is dominant otherwise lateral vertebral arteries are patent. Mild degenerative changes in the cervical spine. IMPRESSION: Questionable small intimal flap in the left carotid bulb. No luminal narrowing or actual dissection is seen at this time. The above result was conveyed to Dr. Garrison by phone on 06/03/2019 10:56 PM. CONTRAST: Isovue 370, 95mL, IV DLP: 2167.55 mGy*cm CT radiation dose optimization is achieved by the use of a CT protocol in accordance with ACR practice guidelines and adherence to assembler hydraulic backhoe's re commendations which include automated exposure control, adjustment of th e mA and/or kV according to patient size and/or use of iterative reconst ruction technique. Electronically Sign ed by Deena Gomes MD on 06/03/2019 at 2256 Reported an d signed by: Deena Gomes MD CC: Xavi Garrison DO Technologist: Luc House CTDI: 48.02 DLP: 2167.55Trscr Dt/Tm: 06/03/2019 (9110) by:Rosalie [email or web address] Orig Print D/T: S: 06/03/2019 (7078) BATCH NO: N/A Name: Javid ADAM [facility] ED Phys: [email or web address] - Xavi Garrison [address] [place] : 1960 Age: 59 Sex: F [place] [address] Loc: N. ERS Exam Date: 06/03/2019 Status: REG E R PH: FAX: PAGE 2 Signed Repo rt - CT ANGIO [id number] 22:56:00Patient Name: MICHAELLE ADAM Unit No: [id number] EXAMS: CPT: [id number] CT ANGIO HEAD [address] CT ANGIOGRAPHY OF THE HEAD HISTORY: dizzy. COMPARISON:None. TECHNIQUE: Bolus tracking series followed by contrast-enhanced CT kelly ography of the head. Data set analyzed on a 3-D workstation with 3D image post processing. Noncontrast CT images also obtained. FINDINGS: The anterior, middle, and posterior cerebral arteries are patent. Fe emily type left SUBJECT SCIENTIFIC RESEARCH compatible with normal variant. Vertebrobasilar system is patent. Right vertebral artery is dominant. Intracranial internal car otid arteries are patent. No aneurysmal dilatation seen. Visualized dura l sinuses are patent. No enhancing brain lesions seen. No acute i ntracranial hemorrhage is seen on the noncontrast images. The ventricles are normal size and configuration. Mild mucosal thickening in the left ma xillary sinus. Opacification of the right mastoid air cells and middle ea r cavity. IMPRESSION: No large vessel occlusio n or aneurysmal dilatation seen. CT ANGIOGRAPHY OF THE NECK WITH CONTRAST HISTORY: dizzy COMPARISON : None available. TECHNIQUE: Bolus tracking series followed by contrast-enhanced CT angiography of the neck. Data set analyzed on a 3-D workstation with [employer] post processing. Calculation of carotid steno sis is based on NASCET criteria. FINDINGS: ORIGINS OF THE GREAT VESSELS: Origins of the great vessels are patent. Subclavian arteries are patent. RIGHT COMMON CAROTID AR MALLORY: Approximately 40% stenosis in the right carotid bulb with calcifie d plaque present. Mild medial deviation of the distal common carotid ar mallory. RIGHT ICA: Vascular tortuosity otherwise no significant stenosis seen. LEFT COMMON CAROTID ARTERY: Questionable small intimal flap in the Name: MICHAELLE ADAM [facility] [place] E D Phys: CHRIS.01 - Xavi Garrison [address] [facility] : 1960 Age: 59 Sex: [place] [address] Loc: N.ERS Exam Date: 06/03/2019 Status: REG ER PH: FAX: PAGE 1 Signed Report (CONTINUED) Patient Na me: MICHAELLE ADAM Unit No: [id number] EXAMS: CPT: [id number] CT ANGIO HEAD [address] <Continued> carotid bulb and small calcified plaques noted without significant stenosis. LEFT ICA: Vascular tortuosity otherwise no significant stenosis seen. BILATERAL EXTERNAL CAROTID ARTERIES: Mild atherosclerotic disease in the origin of the right external carotid artery with mild luminal narrowing. VERTEBRAL ARTERIES: Right vertebral artery is dominant otherwise lateral vertebral arteries are patent. Mild degenerative changes in the cervical spine. IMPRESSION: Questionable small intimal flap in the left carotid bulb. No luminal narrowing or actual dissection is seen at this time. The above result was conveyed to Dr. Garrison by phone on 06/03/2019 10:56 PM. CONTRAST: Isovue 370, 95mL, IV DLP: 2167.55 mGy*cm CT radiation dose optimization is achieved by the use of a CT protocol in accordance with ACR practice guidelines and adherence to assembler hydraulic backhoe's re commendations which include automated exposure control, adjustment of th e mA and/or kV according to patient size and/or use of iterative reconst ruction technique. Electronically Sign ed by Deena Gomes MD on 06/03/2019 at 2256 Reported an d signed by: Deena Gomes MD CC: Xavi Garrison DO Technologist: Luc House CTDI: DLP: Trscr Dt/Tm: 06/03/2019 (2118) by:Rosalie [email or web address] Orig Print D/T: S: 06/03/2019 (2198) BATCH NO: N/A Name: Javid ADAM [facility] Phys: CHRIS.Anna - Xavi Garrison [address] [place] : 1960 Age: 59 Sex: [place] [address] Loc: N. ERS Exam Date: 06/03/2019 Status: REG E R PH: FAX: PAGE 2 Signed Repo rt [id number] 21:15:00* Test Item Value Reference Range Interpretation Comments GLUBED (test code = GLUBED) > 600 MG/DL 70-105 HH BASIC METABOLIC [id number] 21:01:00* Test Item Value Reference Range Interpretation Comments SODIUM (test code = NA) 127 mmol/L 135-145 L POTASSIUM (test code = K) 4.1 mmol/L 3.6-5.0 N CHLORIDE (test code = CL) 89 mmol/L 101-111 L CARBON DIOXIDE (test code = CO2) 18 mmol/L 21-31 L GLUCOSE (test code = GLU) 576 mg/dl 70-100 HH Cr itical Value reported toFirst Name:TOMMY Last Name:CRUSTRESULTS READ BACK AND VERIFIEDby [email or web address], on 06/03/19, @ 2101. BLOOD UREA NITROGEN (test code = BUN) 22 mg/dl 6-20 H GLOMERULAR FILTRATION RATE (test code = GFR) >=60 max estimate >60 The estimated glomerular filtration rate is computed usingpatient race, age (>18), sex, and serum creatinine. If anyof the needed data elements are missing the Laboratory cannot compute an estimation of the glomerular filtration rate. CREATININE (test code = CREAT) 1.10 mg/dL 0.44-1.03 H CALCIUM (test code = CA) 10.5 mg/dL 8.5-10.5 N LIVER FUNCTION [id number] 21:01:00* Test Item Value Reference Range Interpretation Comments TOTAL PROTEIN (test code = PROT) 8.2 g/dL 6.7-8.2 N ALBUMIN (test code = ALB) 3.9 g/dL 3.2-5.5 N BILIRUBIN TOTAL (test code = BILT) 2.20 mg/dL 0.2-1.3 H BILIRUBIN DIRECT (test code = BILD) 0.6 mg/dL 0.00-0.20 H SGOT/AST (test code = AST) 76 U/L 10-42 H SGPT/ALT (test code = ALT) 65 U/L 10-60 H ALKALINE PHOSPHATASE (test code = ALKP) 144 U/L 42-121 H [id number] 20:52:00* Test Item Value Reference Range Interpretation Comments TROPONIN-I (test code = TROPI) <0.020 ng/mL 0.000-0.034 N PROTHROMBIN [id number] 20:46:00* Test Item Value Reference Range Interpretation Comments PROTHROMBIN TIME PATIENT (test code = PTP) 10.4 SECONDS 9.6-13.0 N INTERNATIONAL NORMAL RATIO (test code = INR) 0.9 The INR is to be used only for monitoring oral anticoagulanttherapy. INDICATION INR VALUE 1. Prophylaxis, deep venous thrombosis, 2.0 - 2.5 including high-risk surgery.2. Prophylaxis, deep venous thrombosis, 2.0 - 3.0 hip surgery, treatment for deep venous thrombosis or pulmonary prevention of systemic embolism in patients with valvular heart disease, atrial fibrillation, tissue heart valve, or acute myocardial infarction.3. Mechanical prosthesis heart valves, 3.0 - 4.5 recurrent systemic embolism. THROMBOPLASTIN TIME [id number] 20:46:00* Test Item Value Reference Range Interpretation Comments THROMBOPLASTIN TIME PARTIAL (test code = PTT) 28 SECONDS 25-37 N PROTHROMBIN [id number] 20:40:00* Test Item Value Reference Range Interpretation Comments PROTHROMBIN TIME PATIENT (test code = PTP) 10.4 SECONDS 9.6-13.0 N INTERNATIONAL NORMAL RATIO (test code = INR) 0.9 The INR is to be used only for monitoring oral anticoagulanttherapy. INDICATION INR VALUE 1. Prophylaxis, deep venous thrombosis, 2.0 - 2.5 including high-risk surgery.2. Prophylaxis, deep venous thrombosis, 2.0 - 3.0 hip surgery, treatment for deep venous thrombosis or pulmonary prevention of systemic embolism in patients with valvular heart disease, atrial fibrillation, tissue heart valve, or acute myocardial infarction.3. Mechanical prosthesis heart valves, 3.0 - 4.5 recurrent systemic embolism. THROMBOPLASTIN TIME [id number] 20:40:00* Test Item Value Reference Range Interpretation Comments THROMBOPLASTIN TIME PARTIAL (test code = PTT) SECONDS 25-37 CBC W/AUTO [id number] 20:34:00* Test Item Value Reference Range Interpretation Comments WHITE BLOOD CELL (test code = WBC) 4.5 x10 3/uL 3.2-11.5 N RED BLOOD CELL (test code = RBC) 4.74 x10(6)/m 3.70-5.10 N HEMOGLOBIN (test code = HGB) 15.3 g/dL 12.0-15.0 H HEMATOCRIT (test code = HCT) 47.7 % 35.7-44.8 H MEAN CELL VOLUME (test code = MCV) 101 fL 80-100 H MEAN CELL HGB (test code = MCH) 32.3 pg 26.2-33.8 N MEAN CELL HGB CONCENTRATION (test code = MCHC) 32.1 g/dL 30.0-34 .0 N RED CELL DISTRIBUTION WIDTH (test code = RDW) 11.8 % 11.3-14. 5 N PLATELET COUNT (test code = PLT) 257 x10 3/uL 130-408 N MEAN PLATELET VOLUME (test code = MPV) 10.3 fL 8.6-12.6 N NEUTROPHIL % (test code = NT%) 50.0 % 40.0-70.0 N IMMATURE GRANULOCYTE % (test code = IG%) 0.4 % 0.0-2.0 N LYMPHOCYTE % (test code = LY%) 44.3 % 20-40 H MONOCYTE % (test code = MO%) 5.3 % 1-10 N EOSINOPHIL % (test code = EO%) 0.0 % 0.0-5.0 N BASOPHIL % (test code = BA%) 0.0 % 0.0-1.0 N NUCLEATED RBC % (test code = NRBC%) 0.0 % 0.0-0.9 N NEUTROPHIL # (test code = NT#) 2.2 x10 3/uL 1.6-7.2 N LYMPHOCYTE # (test code = LY#) 1.99 x10 3/uL 1.1-2.7 N MONOCYTE # (test code = MO#) 0.2 x10 3/uL 0.3-0.8 L EOSINOPHIL # (test code = EO#) 0.0 x10 3/uL 0.0-0.5 N BASOPHIL # (test code = BA#) 0.0 x10 3/uL 0.0-0.1 N - XR CHEST 1 [id number] 20:30:00Patient Name: MICHAELLE ADAM Unit No: [id number] EXAMS: CPT: [id number] XR CHEST 1 V 17256 CHEST 1 VIEW HISTORY: Chest Pain COMPARISON: None. FINDINGS: Cardiac silhouette is enlarged with median sternotomy wires in probably cardiac valve prosthesis noted. No pulmonary vascular congestion seen. No consolidation or large pleural effusion. No pneumothorax. IMPRESSION: No acute chest findings. at 2030 Reported and signed by: Deena Gomes MD CC: Technologist: Kike Ellington Fluoro Time: DAP (Gy m2): Air Kerma (mGy): Trscr Dt/Tm: 06/03/2019 (2029) by:[email or web address] Orig Print D/T: S: 06/03/2019 (2032) BATCH NO: N/A Name: MICHAELLE ADAM [facility] ED Phys: KAYE.Anna - Govind Nagel [address] : 1960 Age: 59 Sex: [place] [address] Loc: N.ERS Exam Date: 06/03/2019 Status: PRE ER PH: FAX: PAGE 1 Signed Report - CT HEAD/BRAIN W/O [id number] 15:11:00Patient Name: MICHAELLE ADAM Unit No: [id number] EXAMS: CPT: [id number] CT HEAD/BRAIN W/O CONT 85678 CT HEAD WITHOUT CONTRAST History: Headache COMPARISON:None Technique:Contiguous axial images through the head from skull base to vertex performed without intravenous contrast. Multiplanar reformats performed. CT radiation dose optimization is achieved for this examination by the use of a CT protocol in accordance with ACR practice standards and adherence to manufacturers recommendations. One or more of the following dose reduction techniques were used: Automated exposure control, adjustment of the mA and/or KV according to patient size, and/or utilization of iterative reconstruction technique. FINDINGS: Global cerebral volume loss with scattered areas of white matter hypoattenuation. No acute intracranial hemorrhage, mass effect, midline shift, hydrocephalus or loss of abad-white differentiation.Ventricles normal in s ize and configuration.Orbits unremarkable.Included sinuses and mastoid air cells are clear.No gross osseous pathology present. IMPRESSION: No acute intracranial abnormality. Nonspecific white matter changes, statistically secondary to chronic microvascular i schemic disease. Electronically Signed by Elvis Bazan MD on 04/08 at 1511 Reported and signed by: Elvis Bazan MD CC: Janene gist: JACINTO Ellington CTDI: 30.9 5 DLP: 440.68 [facility] Dt/Tm: 04/08/2019 (1510) by:[email or web address] Orig Print D/T: S: 04/08/2019 (1513) BATCH NO: N/A Name: MICHAELLE ADAM [facility] ED Phys: Juliana Flaherty MD [address] : 1960 Age: 59 Sex: [place] [address] Loc: N.ERS Exam Date: 04/08/2019 Status: PRE ER PH: FAX: PAGE 1 Signed Report BLOOD [id number] 06:00:00* Test Item Value Reference Range Interpretation Comments CULTURE (BEAKER) (test code = 1095) No growth in 5 days BLOOD [id number] 06:00:00* Test Item Value Reference Range Interpretation Comments CULTURE (BEAKER) (test code = 1095) No growth in 5 days POCT-GLUCOSE [id number] 05:39:00* Test Item Value Reference Range Interpretation Comments POC-GLUCOSE METER (BEAKER) (test code = 1538) 148 mg/dL 70-110 H TESTED AT [address] [address] POCT-GLUCOSE [id number] 05:28:00* Test Item Value Reference Range Interpretation Comments POC-GLUCOSE METER (BEAKER) (test code = 1538) 123 mg/dL 70-110 H TESTED AT [place] [id number] [facility] [address] POCT-GLUCOSE [id number] 05:04:00* Test Item Value Reference Range Interpretation Comments POC-GLUCOSE METER (BEAKER) (test code = 1538) 149 mg/dL 70-110 H TESTED AT [place] [address] [facility] [address] POCT-GLUCOSE [id number] 05:02:00* Test Item Value Reference Range Interpretation Comments POC-GLUCOSE METER (BEAKER) (test code = 1538) 108 mg/dL 70-110 TESTED AT [place] [address] [facility] [address] POCT-GLUCOSE [id number] 05:02:00* Test Item Value Reference Range Interpretation Comments POC-GLUCOSE METER (BEAKER) (test code = 1538) 140 mg/dL 70-110 H TESTED AT [address] [address] POCT-GLUCOSE [id number] 04:58:00* Test Item Value Reference Range Interpretation Comments POC-GLUCOSE METER (BEAKER) (test code = 1538) 186 mg/dL 70-110 H TESTED AT [address] [address] BASIC METABOLIC [id number] 15:14:00* Test Item Value Reference Range Interpretation [...] NOT APPLICABLE FOR DIALYSIS PATIENTS. VANCOMYCIN LEVEL, [id number] 05:09:00* Test Item Value Reference Range Interpretation Comments VANCOMYCIN TROUGH (BEAKER) (test code = 522) 7.8 ug/mL 10.0-20.0 L CBC W/PLT COUNT & AUTO [id number] 01:43:00* Test Item Value Reference Range Interpretation [...] 0. 00-0.20 CBC W/PLT COUNT & AUTO [id number] 05:51:00* Test Item Value Reference Range Interpretation [...] = 417) 0.01 K/ L 0. 00-0.20 [id number] 05:51:00* Test Item Value Reference Range Interpretation Comments MAGNESIUM (BEAKER) (test code = 627) 2.3 mg/dL 1.6-2.6 BASIC METABOLIC [id number] 05:51:00* Test Item Value Reference Range Interpretation [...] IS NOT APPLICABLE FOR DIALYSIS PATIENTS. POCT-GLUCOSE [id number] 20:50:00* Test Item Value Reference Range Interpretation Comments POC-GLUCOSE METER (BEAKER) (test code = 1538) 124 mg/dL 70-110 H TESTED AT [facility] [address] [facility] [address] POCT-GLUCOSE [id number] 17:58:00* Test Item Value Reference Range Interpretation Comments POC-GLUCOSE METER (BEAKER) (test code = 1538) 141 mg/dL 70-110 H TESTED AT [place] [address] [facility] [address] URINALYSIS W/ [id number] 17:32:00* Test Item Value Reference Range Interpretation [...] 516) < /HPF SOURCE(BEAKER) (test code = 0535) Urine, Voided LACTIC ACID, VENOUS, WHOLE [id number] 13:25:00* Test Item Value Reference Range Interpretation Comments LACTATE BLOOD VENOUS (2) (BEAKER) (test code = 2872) 2.2 mmol/L 0 .5-2.2 Effective 08/19/2015: Units/Reference Range ChangeNew: 0.5-2.2 mmol/L Previous: 5 -20 mg/dLPOCT-GLUCOSE [id number] 12:23:00* Test Item Value Reference Range Interpretation Comments POC-GLUCOSE METER (BEAKER) (test code = 1538) 166 mg/dL 70-110 H TESTED AT [facility] [address] [facility] [address] POCT-GLUCOSE [id number] 08:05:00* Test Item Value Reference Range Interpretation Comments POC-GLUCOSE METER (BEAKER) (test code = 1538) 149 mg/dL 70-110 H TESTED AT [facility] [address] [facility] [address] CBC (HEMOGRAM ONLY)2016-09-23 05:57:00* Test Item Value [...] = 413) 0 /100 WBC 0 -0 [id number] 05:32:00* Test Item Value Reference Range Interpretation Comments MAGNESIUM (BEAKER) (test code = 627) 2.2 mg/dL 1.6-2.6 BASIC METABOLIC [id number] 05:32:00* Test Item Value Reference Range Interpretation [...] IS NOT APPLICABLE FOR DIALYSIS PATIENTS. POCT-GLUCOSE [id number] 21:29:00* Test Item Value Reference Range Interpretation Comments POC-GLUCOSE METER (BEAKER) (test code = 1538) 177 mg/dL 70-110 H TESTED AT [address] [address] POCT-GLUCOSE [id number] 18:29:00* Test Item Value Reference Range Interpretation Comments POC-GLUCOSE METER (BEAKER) (test code = 1538) 181 mg/dL 70-110 H TESTED AT [address] [address] POCT-GLUCOSE [id number] 12:20:00* Test Item Value Reference Range Interpretation Comments POC-GLUCOSE METER (BEAKER) (test code = 1538) 176 mg/dL 70-110 H TESTED AT [address] [address] HEMOGLOBIN [id number] 10:30:00* Test Item Value Reference Range Interpretation Comments HEMOGLOBIN A1C (BEAKER) (test code = 368) 7.1 % 4.3-6.1 H POCT-GLUCOSE [id number] 08:06:00* Test Item Value Reference Range Interpretation Comments POC-GLUCOSE METER (BEAKER) (test code = 1538) 145 mg/dL 70-110 H TESTED AT [facility] [address] [facility] [address] TSH/FREE T4 IF [id number] 07:41:00* Test Item Value Reference Range Interpretation [...] = 413) 0 /100 WBC 0 -0 [id number] 06:44:00* Test Item Value Reference Range Interpretation Comments PHOSPHORUS (BEAKER) (test code = 604) 2.6 mg/dL 2.3-4.7 [id number] 06:44:00* Test Item Value Reference Range Interpretation Comments MAGNESIUM (BEAKER) (test code = 627) 1.9 mg/dL 1.6-2.6 BASIC METABOLIC [id number] 06:44:00* Test Item Value Reference Range Interpretation [...] IS NOT APPLICABLE FOR DIALYSIS PATIENTS. LIPID [id number] 06:44:00* Test Item Value Reference Range Interpretation [...] High 160-189 Very High >=190 HEPATIC FUNCTION [id number] 06:44:00* Test Item Value Reference Range Interpretation [...] code = 347) 19 U/L 6-55 POCT-GLUCOSE [id number] 21:51:00* Test Item Value Reference Range Interpretation Comments POC-GLUCOSE METER (BEAKER) (test code = 1538) 165 mg/dL 70-110 H TESTED AT [address] [address] POCT-GLUCOSE [id number] 16:59:00* Test Item Value Reference Range Interpretation Comments POC-GLUCOSE METER (BEAKER) (test code = 1538) 156 mg/dL 70-110 H TESTED AT [address] [address] POCT-GLUCOSE [id number] 12:25:00* Test Item Value Reference Range Interpretation Comments POC-GLUCOSE METER (BEAKER) (test code = 1538) 169 mg/dL 70-110 H TESTED AT [address] [address] POCT-GLUCOSE [id number] 07:50:00* Test Item Value Reference Range Interpretation Comments POC-GLUCOSE METER (BEAKER) (test code = 1538) 145 mg/dL 70-110 H TESTED AT [address] [address] POCT-GLUCOSE [id number] 06:23:00* Test Item Value Reference Range Interpretation Comments POC-GLUCOSE METER (BEAKER) (test code = 1538) 125 mg/dL 70-110 H TESTED AT [address] [address] POCT-GLUCOSE [id number] 04:41:00* Test Item Value Reference Range Interpretation Comments POC-GLUCOSE METER (BEAKER) (test code = 1538) 116 mg/dL 70-110 H TESTED AT [address] [address] POCT-GLUCOSE [id number] 03:44:00* Test Item Value Reference Range Interpretation Comments POC-GLUCOSE METER (BEAKER) (test code = 1538) 119 mg/dL 70-110 H TESTED AT [address] [address] POCT-GLUCOSE [id number] 03:44:00* Test Item Value Reference Range Interpretation Comments POC-GLUCOSE METER (BEAKER) (test code = 1538) 123 mg/dL 70-110 H TESTED AT [address] [address] POCT-GLUCOSE [id number] 03:44:00* Test Item Value Reference Range Interpretation Comments POC-GLUCOSE METER (BEAKER) (test code = 1538) 175 mg/dL 70-110 H TESTED AT [address] [address] BASIC METABOLIC [id number] 03:16:00* Test Item Value Reference Range Interpretation [...] GFR IS NOT APPLICABLE FOR DIALYSIS PATIENTS. [id number] 03:00:00* Test Item Value Reference Range Interpretation Comments MAGNESIUM (BEAKER) (test code = 627) 2.4 mg/dL 1.6-2.6 Specimen slightly hemolyzed [id number] 03:00:00* Test Item Value Reference Range Interpretation [...] 413) 0 /100 WBC 0 -0 0.00POCT-GLUCOSE [id number] 00:28:00* Test Item Value Reference Range Interpretation Comments POC-GLUCOSE METER (BEAKER) (test code = 1538) 156 mg/dL 70-110 H TESTED AT [facility] [address] [facility] [address] POCT-GLUCOSE [id number] 23:29:00* Test Item Value Reference Range Interpretation Comments POC-GLUCOSE METER (BEAKER) (test code = 1538) 184 mg/dL 70-110 H TESTED AT [facility] [address] [facility] [address] POCT-GLUCOSE [id number] 21:54:00* Test Item Value Reference Range Interpretation Comments POC-GLUCOSE METER (BEAKER) (test code = 1538) 138 mg/dL 70-110 H TESTED AT [address] [address] POCT-GLUCOSE [id number] 21:00:00* Test Item Value Reference Range Interpretation Comments POC-GLUCOSE METER (BEAKER) (test code = 1538) 158 mg/dL 70-110 H TESTED AT [address] [address] POCT-GLUCOSE [id number] 21:00:00* Test Item Value Reference Range Interpretation Comments POC-GLUCOSE METER (BEAKER) (test code = 1538) 172 mg/dL 70-110 H TESTED AT [address] [address] POCT-GLUCOSE [id number] 21:00:00* Test Item Value Reference Range Interpretation Comments POC-GLUCOSE METER (BEAKER) (test code = 1538) 96 mg/dL 70-110 TESTED AT [address] [address] POCT-GLUCOSE [id number] 21:00:00* Test Item Value Reference Range Interpretation Comments POC-GLUCOSE METER (BEAKER) (test code = 1538) 126 mg/dL 70-110 H TESTED AT [address] [address] POCT-GLUCOSE [id number] 17:34:00* Test Item Value Reference Range Interpretation Comments POC-GLUCOSE METER (BEAKER) (test code = 1538) 106 mg/dL 70-110 TESTED AT [address] [address] POCT-GLUCOSE [id number] 15:52:00* Test Item Value Reference Range Interpretation Comments POC-GLUCOSE METER (BEAKER) (test code = 1538) 157 mg/dL 70-110 H TESTED AT [address] [address] POCT-GLUCOSE [id number] 15:52:00* Test Item Value Reference Range Interpretation Comments POC-GLUCOSE METER (BEAKER) (test code = 1538) 122 mg/dL 70-110 H TESTED AT [address] [address] POCT-GLUCOSE [id number] 15:52:00* Test Item Value Reference Range Interpretation Comments POC-GLUCOSE METER (BEAKER) (test code = 1538) 144 mg/dL 70-110 H TESTED AT [facility] [address] [facility] [address] BLOOD GAS, [id number] 14:42:00* Test Item Value Reference Range Interpretation [...] (BEAKER) (test code = 1819) 40.0 % [id number] 11:41:00* Test Item Value Reference Range Interpretation Comments MAGNESIUM (BEAKER) (test code = 627) 3.4 mg/dL 1.6-2.6 H Specimen slightly hemolyzed [id number] 11:41:00* Test Item Value Reference Range Interpretation Comments PHOSPHORUS (BEAKER) (test code = 604) 3.3 mg/dL 2.3-4.7 Specimen slightly hemolyzed [id number] 11:41:00* Test Item Value Reference Range Interpretation Comments POTASSIUM (BEAKER) (test code = 379) 3.9 meq/L 3.5-5.1 Specimen slightly hemolyzed [id number] 11:41:00* Test Item Value Reference Range Interpretation Comments SODIUM (BEAKER) (test code = 381) 143 meq/L 136-145 [id number] 11:41:00* Test Item Value Reference Range Interpretation Comments GLUCOSE RANDOM (BEAKER) (test code = 652) 161 mg/dL 70-105 H Effective 03/04/2014: Reference Range Change-Adult onlyNew: 70-105 Previous: 70-110LACTIC ACID, ARTERIAL, WHOLE [id number] 11:28:00* Test Item Value Reference Range Interpretation Comments LACTATE BLOOD ARTERIAL (2) (BEAKER) (test code = 2874) 1.4 mmol/L 0.5-2.2 Specimen slightly hemolyzed Effective 08/19/2015: Units/Reference Range ChangeNew: 0.5-2.2 mmol/L Previous: 5 -20 mg/dLCBC W/PLT COUNT & AUTO [id number] 11:28:00* Test Item Value Reference Range Interpretation [...] 0.06 K/ L 0. 00-0.20 0.00BLOOD GAS, [id number] 11:06:00* Test Item Value Reference Range Interpretation [...] code = 1819) 100.0 % OXYGEN SATURATION, [id number] 11:06:00* Test Item Value Reference Range Interpretation Comments O2 SATURATION (MEASURED) (BEAKER) (test code = 1455) 60.8 % From distal port of IJ central venous [id number] 10:23:00* Test Item Value Reference Range Interpretation Comments ACTIVATED CLOTTING TIME (BEAKER) (test code = 441) 131 sec TESTED AT [place] [id number] 10:23:00* Test Item Value Reference Range Interpretation Comments ACTIVATED CLOTTING TIME (BEAKER) (test code = 441) 703 sec TESTED AT [place] [address] [id number] 10:23:00* Test Item Value Reference Range Interpretation Comments ACTIVATED CLOTTING TIME (BEAKER) (test code = 441) > sec OUTSIDE MEASURING RANGETESTED AT [place] [address] [id number] 10:23:00* Test Item Value Reference Range Interpretation Comments ACTIVATED CLOTTING TIME (BEAKER) (test code = 441) 580 sec TESTED AT [facility] [address] [facility] [address] [id number] 10:23:00* Test Item Value Reference Range Interpretation Comments ACTIVATED CLOTTING TIME (BEAKER) (test code = 441) 137 sec TESTED AT [facility] [address] [facility] [address] [id number] 10:03:00* Test Item Value Reference Range Interpretation Comments FIBRINOGEN LEVEL (BEAKER) (test code = 658) 200 mg/dl 225-434 L [id number] 09:49:00* Test Item Value Reference Range Interpretation Comments PARTIAL THROMBOPLASTIN TIME (BEAKER) (test code = 760) 34.8 seconds 22.5-36.0 PROTHROMBIN [id number] 09:48:00* Test Item Value Reference Range Interpretation [...] pat ients with mechanical heart valves.PLATELET COUNT-STAT [id number] 09:48:00* Test Item Value Reference Range Interpretation Comments PLATELET COUNT (BEAKER) (test code = 756) 97 K/CU MM 150-430 L BLOOD GAS, [id number] 09:26:00* Test Item Value Reference Range Interpretation [...] (test code = 1819) 97.0 % GLUCOSE-STAT [id number] 09:26:00* Test Item Value Reference Range Interpretation Comments GLUCOSE RANDOM (BEAKER) (test code = 652) 176 mg/dL 70-110 H HGB/HCT (H&H) - STAT [id number] 09:26:00* Test Item Value Reference Range Interpretation Comments HEMOGLOBIN (BEAKER) (test code = 410) 8.4 g/dL 12.0-15.0 L HEMATOCRIT (BEAKER) (test code = 411) 25.0 % 36.0-45.0 L CALCIUM, [id number] 09:26:00* Test Item Value Reference Range Interpretation Comments CALCIUM IONIZED (BEAKER) (test code = 698) 1.00 mmol/L 1.12-1.27 L PH, BLOOD (BEAKER) (test code = 1810) 7.47 SODIUM NA-STAT [id number] 09:25:00* Test Item Value Reference Range Interpretation Comments SODIUM (BEAKER) (test code = 381) 137 meq/L 135-148 POTASSIUM-STAT [id number] 09:25:00* Test Item Value Reference Range Interpretation Comments POTASSIUM (BEAKER) (test code = 379) 4.1 meq/L 3.6-5.5 SODIUM NA-STAT [id number] 08:59:00* Test Item Value Reference Range Interpretation Comments SODIUM (BEAKER) (test code = 381) 136 meq/L 135-148 POTASSIUM-STAT [id number] 08:59:00* Test Item Value Reference Range Interpretation Comments POTASSIUM (BEAKER) (test code = 379) 4.3 meq/L 3.6-5.5 BLOOD GAS, [id number] 08:59:00* Test Item Value Reference Range Interpretation [...] (test code = 1819) 70.0 % GLUCOSE-STAT [id number] 08:59:00* Test Item Value Reference Range Interpretation Comments GLUCOSE RANDOM (BEAKER) (test code = 652) 152 mg/dL 70-110 H HGB/HCT (H&H) - STAT [id number] 08:59:00* Test Item Value Reference Range Interpretation Comments HEMOGLOBIN (BEAKER) (test code = 410) 7.9 g/dL 12.0-15.0 L HEMATOCRIT (BEAKER) (test code = 411) 23.0 % 36.0-45.0 L BLOOD GAS, [id number] 08:39:00* Test Item Value Reference Range Interpretation [...] code = 1819) 70.0 % SODIUM NA-STAT [id number] 08:39:00* Test Item Value Reference Range Interpretation Comments SODIUM (BEAKER) (test code = 381) 132 meq/L 135-148 L GLUCOSE-STAT [id number] 08:39:00* Test Item Value Reference Range Interpretation Comments GLUCOSE RANDOM (BEAKER) (test code = 652) 127 mg/dL 70-110 H HGB/HCT (H&H) - STAT [id number] 08:39:00* Test Item Value Reference Range Interpretation Comments HEMOGLOBIN (BEAKER) (test code = 410) 7.2 g/dL 12.0-15.0 L HEMATOCRIT (BEAKER) (test code = 411) 21.0 % 36.0-45.0 L POTASSIUM-STAT [id number] 08:37:00* Test Item Value Reference Range Interpretation Comments POTASSIUM (BEAKER) (test code = 379) 4.4 meq/L 3.6-5.5 BLOOD GAS, [id number] 08:04:00* Test Item Value Reference Range Interpretation [...] (test code = 1819) 50.0 % GLUCOSE-STAT [id number] 08:04:00* Test Item Value Reference Range Interpretation Comments GLUCOSE RANDOM (BEAKER) (test code = 652) 155 mg/dL 70-110 H SODIUM NA-STAT [id number] 08:03:00* Test Item Value Reference Range Interpretation Comments SODIUM (BEAKER) (test code = 381) 137 meq/L 135-148 POTASSIUM-STAT [id number] 08:03:00* Test Item Value Reference Range Interpretation Comments POTASSIUM (BEAKER) (test code = 379) 3.5 meq/L 3.6-5.5 L HGB/HCT (H&H) - STAT [id number] 08:03:00* Test Item Value Reference Range Interpretation Comments HEMOGLOBIN (BEAKER) (test code = 410) 12.4 g/dL 12.0-15.0 HEMATOCRIT (BEAKER) (test code = 411) 36.0 % 36.0-45.0 HEMOGLOBIN [id number] 10:55:00* Test Item Value Reference Range Interpretation Comments HEMOGLOBIN A1C (BEAKER) (test code = 368) 6.9 % 4.3-6.1 H BASIC METABOLIC [id number] 10:21:00* Test Item Value Reference Range Interpretation [...] DIALYSIS PATIENTS. CBC W/PLT COUNT & AUTO [id number] 10:20:00* Test Item Value Reference Range Interpretation [...] 417) 0.02 K/ L 0. 00-0.20 0.00PROTHROMBIN [id number] 10:16:00* Test Item Value Reference Range Interpretation [...]
[2019-09-13] MEDS ORDERED: AZITHROMYCIN 500MG/NS 250 ML 250 ML IV ONE (09:45)
--- NOTE | 2019-09-13 09:45 | Emergency Department Note ---
History of Present Illnes History of Present Illness Chief Complaint: Respiratory History of Present Illness This is a 59 year old female HERE FROM [facility] RESORT FOR BLEEDING AROUND TRACH COLLAR. CLIENT IN NO APPARENT DISTRESS. HAS OBVIOUS BLOOD TINGED SPUTUM TO TRACH COLLAR AND MOUTH. Historian: Rn Mobile/EMS Arrival Mode: [facility] Treatment GAMBLING MONITOR: See EMS Report History limited by: condition of the patient Technical Services Analyst Required: No Onset (how long ago): hour(s) Location: MOUTH AND FROM TRACHEOSTOMY Quality: BLOODY SPUTUM Radiation: non-radiation Severity: mild Onset quality: gradual Duration (how long): hour(s) Timing of current episode: intermittent Progression: worsening Chronicity: new Context: recent illness, recent immobilization Relieving factors: none Exacerbating factors: none Treatments prior to arrival: other (NURSE AT [facility] SAID IN REPORT THAT THEY WERE "BAGGING THE PATIENT") Past Medical/Family History Physician Review I have reviewed the patient's past medical and family history. Any updates have been documented here. Past Medical History Recent Fever: No Clinical Suspicion of Infectio: No New/Unexplained Change in Ment: No Past Medical History: Hypertension, Diabetes, CHF, CVA, A-Fib, CAD, Chronic Kidney Disease Other Medical History: H/O HEMORRHAGIC CVA IN 06/2019 WHEN SHE WAS ON COUMADIN (FOR AFIB AND MECH MITRAL VALVE) WITH INR>10, TREATED AT [facility], MOVED TO [facility] 8 DAYS AGO Past Surgical History: CABG Other Surgery: MITRAL VALVE REPLACEMENT Social History Unable to obtain PSH: altered mental status Smoking Cessation: Unknown if ever smoked Counseling Performed: No Alcohol Use: None Any Illegal Drug Use: No TB Exposure/Symptoms: No Physically hurt or threatened: No Family History Family history of heart diseas: Yes Other Any Pre-Existing Lines (PICC,: No Is patient up to date on immun: Yes Last Flu: unknown Last Pneumovax: utd Review of Systems ROS Narrative Unable to obtain ROS: Unable to obtain due to, altered mental status Review of Systems Review of other systems All other systems reviewed and negative. Physical Exam Related Data Allergies: Coded Allergies: No Known Allergies (Unverified , 09/13/19) Triage Vital Signs Vital Signs Date Time Temp Pulse Resp B/P (MAP) Pulse Ox O2 Delivery O2 Flow Rate FiO2 09/13/19 09:02 97.4 85 16 127/84 100 Vital signs reviewed: Yes Physical Exam CONSTITUTIONAL Constitutional: ill appearing HENT HENT: other (BLOODY SPUTUM PRESENT IN MOUTH - SUCTIONED AND DOES NOT APPEAR TO BE ACTIVELY BLEEDING IN MOUTH/OROPHARYNX BUT DIFFICULT DUE TO PT CLENCHING TEETH TOGETHER) HENT L/R: left ext ear normal, right ext ear normal EYES Eyes: left eye discharge (LEFT EYE WITH PARALYTIC LAGOPHTHALMOS AND CLOUDY UMBERTO RLY OPAQUE SCLERA/CORNEA) NECK Neck: other (TRACH TUBE WITH BLOODY SECRETIONS - CLEARED WITH SUCTIONING, NO BLEEDING FROM TRACHEOSTOMY SITE - IE THE SECRETIONS APPEAR TO BE FROM LUNG SOURCE) PULMONARY Pulmonary: effort normal, other (DECREASED BS's ON RIGHT WITH RHONCHI) CARDIOVASCULAR Cardiovascular: regular rhythm, other (MECHANICAL CLICK) GASTROINTESTINAL Abdominal: other (G-TUBE PRESENT) GENITOURINARY Genitourinary: exam deferred SKIN Skin: warm, dry MUSCULOSKELETAL Musculoskeletal: other (MULTIPLE CONTRACTURES) NEUROLOGICAL Neurological: other (GCS= 8 (EYE OPENING 4, VERBAL- NONE 1, MOTOR RESPONSE 3)) PSYCHOLOGICAL Psychological: other (FLAT AFFECT) Results Laboratory Result Diagram: 09/13/19 0900 Laboratory Laboratory Tests Test 09/13/19 09:40 09/13/19 09:00 White Blood Count 7.96 x10e3/uL (4.8-10.8) Red Blood Count 2.83 x10e6/uL (3.6-5.1) Hemoglobin 8.6 g/dL (12.0-16.0) Hematocrit 29.5 % (34.2-44.1) Mean Corpuscular Volume 104.2 fL (81-99) Mean Corpuscular Hemoglobin 30.4 pg (28-32) Mean Corpuscular Hemoglobin Concent 29.2 g/dL (31-35) Red Cell Distribution Width 13.9 % (11.7-14.4) Platelet Count 234 x10e3/uL (140-360) Neutrophils (%) (Auto) 45.3 % (38.7-80.0) Lymphocytes (%) (Auto) 30.7 % (18.0-39.1) Monocytes (%) (Auto) 20.4 % (4.4-11.3) Eosinophils (%) (Auto) 2.6 % (0.0-6.0) Basophils (%) (Auto) 0.4 % (0.0-1.0) Neutrophils # (Auto) 3.6 (2.1-6.9) Lymphocytes # (Auto) 2.4 (1.0-3.2) Monocytes # (Auto) 1.6 (0.2-0.8) Eosinophils # (Auto) 0.2 (0.0-0.4) Basophils # (Auto) 0.0 (0.0-0.1) Absolute Immature Granulocyte (auto 0.05 x10e3/uL (0-0.1) Prothrombin Time 12.1 seconds (11.9-14.5) Prothromb Time International Ratio 0.85 Activated Partial Thromboplast Time 31.5 seconds (23.8-35.5) Sodium Level 139 mmol/L (136-145) Potassium Level 4.8 mmol/L (3.5-5.1) Chloride Level 93 mmol/L (98-107) Carbon Dioxide Level 39 mmol/L (22-29) Anion Gap 11.8 mmol/L (8-16) Blood Urea Nitrogen 22 mg/dL (7-26) Creatinine 0.48 mg/dL (0.57-1.11) Estimat Glomerular Filtration Rate > 60 ML/MIN (60-) BUN/Creatinine Ratio 46 (6-25) Glucose Level 116 mg/dL (74-118) Calcium Level 10.1 mg/dL (8.4-10.2) Total Bilirubin 0.6 mg/dL (0.2-1.2) Aspartate Amino Transf (AST/SGOT) 61 IU/L (5-34) Alanine Aminotransferase (ALT/SGPT) 51 IU/L (0-55) Alkaline Phosphatase 113 IU/L (40-150) Creatine Kinase 19 IU/L (29-168) Creatine Kinase MB 2.10 ng/mL (0-5.0) Troponin I < 0.001 ng/mL (0-0.300) B-Type Natriuretic Peptide 197.1 pg/mL (0-100) Total Protein 7.1 g/dL (6.5-8.1) Albumin 2.8 g/dL (3.5-5.0) Globulin 4.3 g/dL (2.3-3.5) Albumin/Globulin Ratio 0.7 (0.8-2.0) Laboratory Tests Test 09/13/19 09:00 White Blood Count 7.96 x10e3/uL (4.8-10.8) Red Blood Count 2.83 x10e6/uL (3.6-5.1) Hemoglobin 8.6 g/dL (12.0-16.0) Hematocrit 29.5 % (34.2-44.1) Mean Corpuscular Volume 104.2 fL (81-99) Mean Corpuscular Hemoglobin 30.4 pg (28-32) Mean Corpuscular Hemoglobin Concent 29.2 g/dL (31-35) Red Cell Distribution Width 13.9 % (11.7-14.4) Platelet Count 234 x10e3/uL (140-360) Neutrophils (%) (Auto) 45.3 % (38.7-80.0) Lymphocytes (%) (Auto) 30.7 % (18.0-39.1) Monocytes (%) (Auto) 20.4 % (4.4-11.3) Eosinophils (%) (Auto) 2.6 % (0.0-6.0) Basophils (%) (Auto) 0.4 % (0.0-1.0) Neutrophils # (Auto) 3.6 (2.1-6.9) Lymphocytes # (Auto) 2.4 (1.0-3.2) Monocytes # (Auto) 1.6 (0.2-0.8) Eosinophils # (Auto) 0.2 (0.0-0.4) Basophils # (Auto) 0.0 (0.0-0.1) Absolute Immature Granulocyte (auto 0.05 x10e3/uL (0-0.1) Lab results reviewed: Yes Laboratory comments SENT FROM MEDICAL RESORT WITH BLOODY SECRETIONS FROM MOUTH AND TRACH TUBE, LIKELY LUNG SOURCE DUE TO PNEUMONIA - CHECK CBC, CHEM'S, CARDIAC ENZYMES, ECG, PT/PTT, CXR, BLOOD CX'S. PT HAD RECENT NEGATIVE CORONAVIRUS AT MED RESORT. R/O PNEUMONIA, BRONCHITIS, HEMOPTYSIS DUE TO LUNG LESION, COAGULOPATHY, CHF, STEMI/NSTEMI Imaging Imaging results reviewed: Yes Impressions EXAMINATION: CHEST SINGLE (PORTABLE) INDICATION: Shortness of breath COMPARISON: None FINDINGS: LINES/TUBES:Tracheostomy tube terminates in the midthoracic trachea. PLANNING SUPERVISOR shunt partially visualized. LUNGS:Left lung is well-inflated. Right lung volume is low. Patchy opacities at the right upper lobe and right lower lobe. PLEURA:Large right pleural effusion. No pneumothorax. MEDIASTINUM:The cardiomediastinal silhouette appears normal in size and shape. BONES/SOFT TISSUES:No acute osseous injury. Sternotomy wires in place. ABDOMEN:No free air under the diaphragm. Cholecystectomy. IMPRESSION: Large right pleural effusion. Patchy opacities at the right upper and right lower lobes may represent atelectasis however superimposed aspiration or pneumonia could also have this appearance in the proper clinical setting. Signed by: Makenna Rivas MD on 09/13/2019 9:26 AM Diagnostics Tests Diagnostic test(s) reviewed: Yes Procedures 12 Lead ECG Interpretation Technical Services Analyst: Interpreted by ED physician Date: September 13, 2019 Time: 09:23 Prior GREY INSPECTOR tracings: reviewed Rhythm: sinus rhythm Rate: normal (83) QRS axis: normal ST segments normal: Yes T waves normal: Yes Clinical Impression: low voltage Critical Care Time Subsequent provider I assumed direction of critical care for this patient from another provider of my specialty. Assessment & Plan Assessment & Plan Final Impression: (1) VENTILATOR ASSOCIATED PNEUMONIA (2) HEMOPTYSIS (3) PLEURAL EFFUSION, NOT ELSEWHERE CLASSIFIED (4) CHRONIC RESPIRATORY FAILURE, UNSP W HYPOXIA OR HYPERCAPNIA Assessment & Plan ADMIT TO ICU DUE TO TRACHEOSTOMY AND CHRONIC RESP FAILURE (ALTHOUGH O2SAT 100% ON TRACH COLLAR), i SPOKE WITH DR Janet KUMAR AND DR Patricio SERRA. CEFEPIME, VANCO, AND AZITHROMYCIN GIVEN Depart Disposition: ADMITTED Last Vital Signs Date Time Temp Pulse Resp B/P (MAP) Pulse Ox O2 Delivery O2 Flow Rate FiO2 09/13/19 09:09 97.0 83 17 127/84 100 Home Meds Reported Medications Atropine Sulfate (ATROPINE SULFATE) 0.4 Mg/1 Ml Vial, 0.4 MG IV, VIAL 09/13/19 Latanoprost/Pf (Latanoprost 0.005% Eye Drop) 7.5 Ml Drops 09/13/19 Famotidine (FAMOTIDINE) 20 Mg Tab, 20 MG PEG DAILY, #30 TAB 09/13/19 Aspirin (ASPIR 81) 81 Mg Tablet.dr 81 MG PEG DAILY 09/13/19 Amiodarone Hcl (AMIODARONE HCL) 200 Mg Tablet, 200 MG PEG DAILY 09/13/19 Medications in the ED Sodium Chloride 500 ml @ 0 mls/hr Q0M ONCE IV ; Start 09/13/19 at 09:00; Stop 09/13/19 at 09:05; Status DC Cefepime HCl 100 ml @ 200 mls/hr NOW ONCE IV ; Start 09/13/19 at 09:00; Stop 09/13/19 at 09:29; Status UNV Azithromycin 250 ml @ 200 mls/hr NOW ONCE IV ; Start 09/13/19 at 09:00; Stop 09/13/19 at 10:14; Status UNV Vancomycin HCl 250 ml @ 200 mls/hr NOW ONCE IV ; Start 09/13/19 at 09:15; Stop 09/13/19 at 10:29; Status UNV Sodium Chloride 1,000 ml @ [facility] ONCE .ROUTE ; Start 09/13/19 at 09:20; Stop 09/13/19 at 09:15; Status DC Sodium Chloride 1,000 ml @ 75 mls/hr [id number] IV ; Start 09/13/19 at 09:30; Stop 09/13/19 at 22:49; Status UNV Albuterol Sulfate 3 ml RQ4H NEB ; Start 09/13/19 at 11:00; Stop 10/13/19 at 10:59; Status UNV Ipratropium [place]ley 2.5 ml RQ6H NEB ; Start 09/13/19 at 13:00; Stop 10/13/19 at 12:59; Status UNV VICENTA GOYAL MD September 13, 2019 09:45
--- NOTE | 2019-09-13 09:46 | NUR ---
covid 19 testing performed.
[2019-09-13] MEDS ORDERED: VANCOMYCIN 1GM/NS 250 ML 250 ML IV ONE (10:30)
--- NOTE | 2019-09-13 10:30 | NUR ---
Blood drawn and patient banded for type and screen.
[2019-09-13] MEDS ORDERED: ALBUTEROL SULF 0.083% NEB SOLN 3 ML NEB NEB SCH (11:00)
[2019-09-13 11:01] LABS: BAND NEUTROPHILS % (MANUAL) 3 %; LYMPHOCYTES % (MANUAL) 20 % (19-48); MONOCYTES % (MANUAL) 17 % (3.4-9.0); NEUTROPHILS % (MANUAL) 60 % (40-74)
[2019-09-13 11:02] LABS: HYPOCHROMASIA SLIGHT; RBC MORPHOLOGY COMMENT NORMAL
[2019-09-13 11:03] LABS: PLATELET ESTIMATE ADEQUATE; PLATELET MORPHOLOGY COMMENT NORMAL
--- NOTE | 2019-09-13 11:51 | NUR ---
CONSULT [id number]
[2019-09-13] MEDS: IPRATROPIUM BROMIDE 0.02% 2.5 ML NEB NEB SCH ×2 (13:00→19:10)
[2019-09-13] MEDS: VANCOMYCIN 1GM/NS 250 ML 250 ML IV SCH (14:31)
[2019-09-13] MEDS: CEFEPIME 1GM/NS 0.9% 50 ML 50 ML IV SCH (15:05)
[2019-09-13 15:40] LABS: FREE THYROXINE INDEX 2.8174 (1.4-3.8); THYROID STIMULATING HORMONE 6.438 uIU/mL (0.350-4.940)
[2019-09-13] MEDS ORDERED: DOXYCYCLINE HYCLATE TABLET 100 MG TAB PO SCH (17:00)
[2019-09-13] MEDS ORDERED: ALBUTEROL/IPRATROPIUM 3 ML NEB NEB SCH (19:00)
[2019-09-13] MEDS: ALBUTEROL SULF 0.083% NEB SOLN 3 ML NEB NEB SCH (19:10)
[2019-09-13 19:53] LABS: CREATINE KINASE 15 IU/L (29-168)
--- NOTE | 2019-09-13 20:51 | Consultation ---
DATE OF CONSULTATION: 09/13/2019 REASON FOR CONSULTATION: Pneumonia and sepsis. HISTORY OF PRESENT ILLNESS: This patient who is 59-year-old female, comes from the [facility]. The patient has underlying history of trach. She has history of hypertension, diabetes mellitus, congestive heart failure, CVA, atrial fibrillation, chronic kidney disease, coronary artery disease, multiple admissions for aspiration and pneumonia, history of hemorrhagic CVA in June 2019. She has been on Coumadin for atrial fibrillation and she also has mechanical mitral valve. Apparently at that time, she had INR more than 10. Had to be transferred to [facility], moved from there to the [facility] 8 days ago. She is currently transferred here for shortness of breath and cough. The patient is currently noncommunicative. History was taken mainly from the chart. In addition to past medical history and past surgical history, the patient has history of CABG and mitral valve replacement. ALLERGIES: NKA. SOCIAL HISTORY: There is no smoking, drug abuse or alcohol abuse. FAMILY HISTORY: Could not be obtained. REVIEW OF SYSTEMS: Could not be obtained. The patient comes here. Her culture was ordered. Blood culture was ordered. Sputum culture was ordered. White count 7.96, hemoglobin 8.6. Her COVID-19 is still pending, there is a quite bit of pandemic. Sodium 139, potassium 4.8, creatinine 0.48. MEDICATIONS: Her medication list reviewed. She is on Pepcid and aspirin. She is on doxycycline, cefepime, and vancomycin. LABORATORY DATA: The patient's sodium 139, potassium 4.8, creatinine 0.48. Her white count is 7.96, hemoglobin 8.6. She had a chest x-ray, which showed large right pleural effusion, opacity right upper and right lower lobe. PHYSICAL EXAMINATION: GENERAL: She is noncommunicative. VITAL SIGNS: Stable, currently afebrile. HEENT: Not icteric. NECK: Supple. CHEST: Rhonchi bilateral. HEART: S1, S2. ABDOMEN: Soft. Bowel sounds present. EXTREMITIES: No edema. SKIN: No rash. IMPRESSION: Sepsis on admission, pneumonia, aspiration, healthcare associated; history of cerebrovascular accident, history of coronary artery disease. PLAN: Put the patient on vancomycin and cefepime. Discontinue doxycycline. Follow vancomycin trough. I agree with blood cultures. I agree with sputum cultures. Recheck CBC. Recheck Chem panel. Prognosis is extremely guarded. We will follow with you. MD KATHERINE Tejeda/CHRISTINE /[id number]
--- NOTE | 2019-09-13 20:56 | Consultation ---
DATE OF CONSULTATION: 09/13/2019 ADDENDUM: The patient does seem to have a ventriculoperitoneal shunt placed in the past. Seen on chest x-ray exam. MD GIOVANNI Luna/CHRISTINE /[id number]
--- NOTE | 2019-09-13 21:22 | Consultation ---
DATE OF CONSULTATION: 09/13/2019 Pulmonary Consultation The patient of Dr. Robi Graves and the patient of also Dr. Gtz, admitted from [facility]. HISTORY: She had been admitted to [facility] on 06/25/2019, after an arrest at home, found to have a low blood sugar. She did not awaken and CT revealed a cerebellar bleed. She has a history of mitral valve replacement, atrial fibrillation, diabetes, and hypertension. Also, according to record, a history of requiring bypass surgery. She apparently remained in a vegetative state in [facility] and recently transferred to [facility]. Bleeding was noted, bloody sputum, and she was admitted to [facility]. She has a trach and a PEG. She is not interactive, though does move her legs, blind in the left eye. PHYSICAL EXAMINATION: VITAL SIGNS: Temperature 96.4, pulse 83, respirations 24, blood pressure 107/91. HEAD: Normocephalic, atraumatic. LUNGS: Diminished breath sounds, right chest. HEART: Tracheostomy is in place. Bloody secretions suctioned out. ABDOMEN: PEG in place. EXTREMITIES: Upper extremities are in hand splint. She moves the lower extremities. IMPRESSION: Persistent vegetative state, status post cerebellar bleed, pneumonia, pleural effusion, anemia with macrocytosis. PLAN: Rule out COVID-19, schedule bronchoscopy, thoracentesis, empiric antibiotic therapy. Consider ENT opinion to rule out the bleeding at the trach site . Thank you for this kind referral. MD GIOVANNI Luna/SHAMARL /[id number]
--- NOTE | 2019-09-13 22:52 | Consultation ---
DATE OF CONSULTATION: 09/13/2019 Hospital Consultation HISTORY OF PRESENT ILLNESS: I was kindly asked to see this 59-year-old woman for evaluation of bleeding from her tracheostomy site. The patient has a history of intercerebral bleed after warfarin intake and has a tracheostomy tube in place. She was noted to have bleeding from the tracheostomy tube of unclear etiology and there was concern that the bleeding may be of a pharyngeal or nasal etiology or possible granulation tissue from the tracheostomy tube. History of present illness, past medical history, and past surgical history were reviewed in detail in the chart. Examinaion: the intranasal examination showed a mild S-shaped nasal septal deviation and nasal mucosa was normal. There was no blood noted in the nasal cavity. Oral cavity examination was limited due to poor patient cooperation. She refused to open her mouth or could not open her mouth. There was no palpable cervical adenopathy. The tracheostomy site was quiescent. There were bloody secretions within the tracheostomy tube. On fiberoptic diagnostic rhinoscopy, there was no active paranasal sinus pathology. There was thick mucus noted in the nasopharynx. There was no blood noted. Yankauer suction was passed behind the teeth and the oral cavity was suctioned. The hypopharynx was then examined using the fiberoptic nasal laryngoscope and no abnormalities were noted. She was noted to have erythema and edema of the entire supraglottic larynx primarily in the posterior commissure of the larynx. There was no blood noted in the supraglottis or bleeding points identified. She had normal vocal cord motion. There were no masses on bronchoscopy through the tracheostomy tube. She was noted to have fresh blood within the trachea and both mainstem bronchi. This was irrigated with saline and suctioned free, continued to be blood clots and fresh blood noted on multiple attempts of suctioning the tracheostomy tube. The bronchoscopy through the tracheostomy tube was limited due to the amount of blood. However, there was no granulation tissue identified. There was blood noted in both mainstem bronchi. ASSESSMENT: 1. Hemoptysis. Apparently, a pulmonary etiology with no evidence of tracheal bleeding points, pharyngeal bleeding points, laryngeal bleeding points, or epistaxis. PLAN: 1. No otolaryngology changes in treatment. 2. Defer to Pulmonology for additional workup. Musa R Dawson, MD [facility]/SHAMARL /[id number] MTDD
--- NOTE | 2019-09-13 22:52 | Diagnostic Imaging Report ---
EXAM: CT Chest WITH contrast (PE protocol) 09/13/2019 9:00 PM INDICATION: Hemoptysis COMPARISON: Chest CT 09/13/2019 TECHNIQUE: Chest was scanned utilizing a multidetector helical scanner from the lung apex through the level of the adrenal glands with administration of IV contrast. Coronal and sagittal reformations were obtained. Routine protocol was performed. IV CONTRAST: 100 mL of Isovue 370 COMPLICATIONS: None RADIATION DOSE: Total DLP: 436 mGy*cm Estimated effective dose: (DLP x 0.014 x size factor) mSv CTDIvol has been reviewed. It is below the limits set by the Radiation Protocol Committee (RPC). Dose modulation, iterative reconstruction, and/or weight based adjustment of the mA/kV was utilized to reduce the radiation dose to as low as reasonably achievable. FINDINGS: LINES/ TUBES: Tracheostomy tube tip in the mid intrathoracic trachea. Percutaneous gastrostomy tube tip in the gastric lumen. Ventriculoperitoneal shunt catheter courses along the left anterior chest subcutaneous adipose into the right upper abdomen and enters the right upper peritoneal cavity tip out of field of view.. LUNGS AND AIRWAYS: No evidence of pulmonary embolus. Partial collapse and consolidation of the dependent upper lobes, right middle lobe, and near complete consolidation and collapse of the lower lobes. Debris in the central airways, and within the upper trachea above the tracheostomy. Plugging of dependent distal airways. PLEURA: Large right and small left pleural effusions. HEART AND MEDIASTINUM: The thyroid gland is normal. There is no pericardial effusion. Severe cardiomegaly. Mitral left coronary artery calcific atherosclerosis. Valve replacement. Dilated main pulmonary artery indicative of pulmonary hypertension. UPPER ABDOMEN: Cholecystectomy. BONES: Sternotomy wires. SOFT TISSUES: Unremarkable. IMPRESSION: Findings of bilateral lung aspiration pneumonia with partial collapse/consolidation dependent aspects of bilateral upper and right middle lobes, and near-complete consolidation and collapse of the right lower lobes. Debris in the central airways, and within the upper trachea above the tracheostomy. Large right and small left pleural effusions. Severe cardiomegaly. Left coronary calcifications. Mitral valve replacement. No evidence of pulmonary embolus. Signed by: Mario Nuñez DO on 09/13/2019 10:49 PM
[2019-09-13] MEDS ORDERED: SODIUM CHLORIDE 0.9% 50ML 50 ML ONE (23:54)
[2019-09-13] MEDS ORDERED: IOPAMIDOL 370 MG/ML 200 ML INFUS..BTL INJ ONE (23:54)
[2019-09-14] VITALS (25 sets, daily range): BP systolic 97–139; BP diastolic 50–80
[2019-09-14] MEDS: VANCOMYCIN 1GM/NS 250 ML 250 ML IV SCH ×2 (02:00→13:12)
--- NOTE | 2019-09-14 02:07 | Diagnostic Imaging Report ---
EXAMINATION: CHEST XRAY LINE PLACEMENT INDICATION: ^PICC VERIFICATION COMPARISON: chest CT and x-ray 09/13/2019 FINDINGS: TUBES and LINES: Left upper extremity PICC tip terminates in the superior cavoatrial junction. Tracheostomy tube tip projects in the mid intrathoracic trachea. Ventriculoperitoneal shunt catheter traverses the left chest and enters the right upper abdomen LUNGS/PLEURA: Bilateral airspace disease which was consistent with aspiration on the prior chest CT, and large right and small left pleural effusions. HEART AND MEDIASTINUM: The cardiomediastinal silhouette is enlarged. Mitral valve replacement. BONES AND SOFT TISSUES: No acute osseous lesion. Soft tissues are unremarkable. Sternotomy wires. UPPER ABDOMEN: No free air under the diaphragm. . Cholecystectomy clips. IMPRESSION: Left upper extremity PICC tip terminates in the superior cavoatrial junction. Bilateral airspace disease which was consistent with aspiration on the prior chest CT. Large right and small left pleural effusions. Cardiomegaly. Signed by: Mario Nuñez DO on 09/14/2019 2:04 AM
--- NOTE | 2019-09-14 02:48 | Diagnostic Imaging Report ---
EXAMINATION: CHEST SINGLE (PORTABLE) INDICATION: Hemoptysis COMPARISON: Chest x-ray 09/14/2019 1:50 AM FINDINGS: TUBES and LINES: Left upper extremity PICC tip terminates in the superior cavoatrial junction. Tracheostomy tube tip projects in the mid intrathoracic trachea. Ventriculoperitoneal shunt catheter traverses the left chest and enters the right upper abdomen LUNGS/PLEURA: Bilateral airspace disease which was consistent with aspiration on the prior chest CT, and large right and small left pleural effusions. HEART AND MEDIASTINUM: The cardiomediastinal silhouette is enlarged. Mitral valve replacement. BONES AND SOFT TISSUES: No acute osseous lesion. Soft tissues are unremarkable. Sternotomy wires. UPPER ABDOMEN: No free air under the diaphragm. . Cholecystectomy clips. IMPRESSION: Bilateral airspace disease which was consistent with aspiration on the prior chest CT. Large right and small left pleural effusions. Cardiomegaly. Signed by: Mario Nuñez DO on 09/14/2019 2:45 AM
[2019-09-14] MEDS: IPRATROPIUM BROMIDE 0.02% 2.5 ML NEB NEB SCH ×4 (03:05→19:15)
[2019-09-14] MEDS: ALBUTEROL SULF 0.083% NEB SOLN 3 ML NEB NEB SCH ×4 (03:05→19:15)
[2019-09-14 03:42] LABS: CREATINE KINASE 13 IU/L (29-168)
[2019-09-14] MEDS: CEFEPIME 1GM/NS 0.9% 50 ML 50 ML IV SCH ×2 (03:52→15:40)
[2019-09-14 04:34] LABS: BASOPHILS % 0.3 % (0.0-1.0); EOSINOPHILS # (AUTO) 0.1 (0.0-0.4); EOSINOPHILS % 0.8 % (0.0-6.0); HEMATOCRIT 25.8 % (34.2-44.1); HEMOGLOBIN 7.5 g/dL (12.0-16.0); LYMPHOCYTES # (AUTO) 1.6 (1.0-3.2); LYMPHOCYTES % 26.3 % (18.0-39.1); MEAN CORPUSCULAR HEMOGLOBIN 30.2 pg (28-32); MEAN CORPUSCULAR HGB CONC 29.1 g/dL (31-35); MONOCYTES # (AUTO) 0.7 (0.2-0.8); MONOCYTES % 10.9 % (4.4-11.3); NEUTROPHILS # (AUTO) 3.8 (2.1-6.9); NEUTROPHILS % 61.5 % (38.7-80.0); PLATELET COUNT 225 x10e3/uL (140-360); RED BLOOD COUNT 2.48 x10e6/uL (3.6-5.1); RED CELL DISTRIBUTION WIDTH 13.8 % (11.7-14.4)
[2019-09-14 04:48] LABS: ALANINE AMINOTRANSFERASE 48 IU/L (0-55); ALBUMIN 2.5 g/dL (3.5-5.0); ALBUMIN/GLOBULIN RATIO 0.7 (0.8-2.0); ALKALINE PHOSPHATASE 97 IU/L (40-150); ANION GAP 10.5 mmol/L (8-16); BLOOD UREA NITROGEN 21 mg/dL (7-26); BUN/CREATININE RATIO 40 (6-25); CALCIUM 9.3 mg/dL (8.4-10.2); CARBON DIOXIDE 37 mmol/L (22-29); CHLORIDE 96 mmol/L (98-107); CREATININE, SERUM 0.52 mg/dL (0.57-1.11); EST GLOMERULAR FILTRATION RATE > 60 ML/MIN (60-); GLUCOSE 118 mg/dL (74-118); POTASSIUM 4.5 mmol/L (3.5-5.1); SODIUM 139 mmol/L (136-145)
[2019-09-14 08:02] LABS: BASOPHILS % 0.3 % (0.0-1.0); EOSINOPHILS # (AUTO) 0.1 (0.0-0.4); EOSINOPHILS % 1.6 % (0.0-6.0); HEMATOCRIT 25.1 % (34.2-44.1); HEMOGLOBIN 7.4 g/dL (12.0-16.0); LYMPHOCYTES # (AUTO) 1.5 (1.0-3.2); LYMPHOCYTES % 26.1 % (18.0-39.1); MEAN CORPUSCULAR HEMOGLOBIN 30.5 pg (28-32); MEAN CORPUSCULAR HGB CONC 29.5 g/dL (31-35); MEAN CORPUSCULAR VOLUME 103.3 fL (81-99); MONOCYTES # (AUTO) 0.7 (0.2-0.8); MONOCYTES % 12.2 % (4.4-11.3); NEUTROPHILS # (AUTO) 3.4 (2.1-6.9); NEUTROPHILS % 59.5 % (38.7-80.0); PLATELET COUNT 229 x10e3/uL (140-360); RED BLOOD COUNT 2.43 x10e6/uL (3.6-5.1); RED CELL DISTRIBUTION WIDTH 13.9 % (11.7-14.4)
[2019-09-14] MEDS: AMIODARONE HCL 200 MG TAB PEG SCH (08:11)
[2019-09-14] MEDS: FAMOTIDINE 20 MG TAB PEG SCH (08:11)
[2019-09-14] MEDS ORDERED: ASPIRIN 81 MG CHEW TAB PEG SCH (09:00)
[2019-09-14 09:09] LABS: HYPOCHROMASIA MARKED; PLATELET ESTIMATE ADEQUATE; PLATELET MORPHOLOGY COMMENT NORMAL; RBC MORPHOLOGY COMMENT ABNORMAL
[2019-09-14 09:40] LABS: HYPOCHROMASIA MARKED; PLATELET ESTIMATE ADEQUATE; PLATELET MORPHOLOGY COMMENT NORMAL; RBC MORPHOLOGY COMMENT ABNORMAL
[2019-09-14 09:41] LABS: MICROCYTOSIS MODERATE
[2019-09-14 09:42] LABS: TEAR DROP CELLS FEW
[2019-09-14] MEDS: FUROSEMIDE INJ 10 MG/ML 4 ML VIAL IV SCH ×2 (10:39→21:27)
--- NOTE | 2019-09-14 10:59 | Progress Note ---
DATE: 09/14/2019 CHIEF COMPLAINT/HISTORY OF PRESENT ILLNESS: This is a 59-year-old woman, whose primary treating diagnosis is acute on chronic respiratory failure secondary to bilateral gram-negative sheri pneumonia. The patient had chest x-ray performed today on September 14, 2019, which revealed bilateral airspace disease as well as a large right and small left pleural effusion. Chest x-ray also revealed cardiomegaly. When the patient was admitted, she underwent a CT of the chest with intravenous contrast that revealed bilateral consolidations in the upper lobes as well as the right middle and right lower lobes. CT of the chest also revealed severe cardiomegaly and left coronary calcifications. Moreover, CT of the chest revealed findings consistent with previous mitral valve replacement. Blood work today revealed a hemoglobin of 7.4 g/dL. White blood cell count 5700 with 59% segmenters. The patient's BUN and creatinine is 21 and 0.52 respectively. When the patient was admitted, she had a COVID virus test by PCR ordered and it was negative. REVIEW OF SYSTEMS: As per HPI. PHYSICAL EXAMINATION: GENERAL: She is awake, nonverbal, does not follow commands, bedbound. She is currently on trach collar with an FiO2 of 40%. VITAL SIGNS: Her oxygen saturation is 100%. Heart rate is 90, respiratory rate is 24, blood pressure 120/68, temperature 96.0, BMI 26. INTEGUMENT: Skin is warm and dry. Slight pallor. No jaundice or diaphoresis. HEENT: Anicteric sclerae with moist mucous membranes. 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 The patient had obvious bleeding from her mouth. NECK: Supple. She has a tracheostomy tube in place, connected to trach collar with FiO2 of 40%. CARDIOVASCULAR: Tachycardic rate, regular rhythm. LUNGS: The patient has crackles and rhonchi bilaterally. ABDOMEN: Soft. She has G-tube in place which is functional. EXTREMITIES: No edema. NEUROLOGIC: She is bedbound. Does not follow any commands. DIAGNOSES: 1. Bilateral gram-negative sheri pneumonia. 2. Acute on chronic respiratory failure. 3. History of large intracerebral and cerebellar hemorrhage. 4. Paroxysmal atrial fibrillation. 5. History of mitral valve replacement. 6. Acute on chronic diastolic congestive heart failure. PLAN: 1. Follow hemoglobin and hematocrit. 2. Stop aspirin since the patient is having bleeding from her mouth and her anemia is worsening. 3. Continue intravenous antibiotics for pneumonia. 4. We will administer a dose of intravenous furosemide for the patient's acute on chronic heart failure. 5. We will order a 2D echocardiogram. 6. Continue respiratory care. MD VAL Davidson/CHRISTINE /[id number] MTDD
--- NOTE | 2019-09-14 14:58 | NUR ---
Nutrition Intervention Note RD Recommendation(s) for Physician: -Recommend Glucerna 1.5 @ goal rate of 40 mL/hr (provides 1440 kcal, 79 g protein) -Fluid management per MD Plan of Care: RD following, monitoring for tolerance and adequacy, tube feeding recommendation Nutrition reason for involvement: enteral nutrition RD Assessment (09/14/19) Pt is a 59 year old female admitted with hemoptysis. Pt has a trach and PEG. It is noted that pt is nonverbal and bedbound; therefore, unable to obtain nutrition history from pt. There were no family members present at bedside. Tube feeding of Glucerna 1.5 was started. Per chart on unit, pt receives Diabetisource tube feeding at [facility]. Diabetisource is not on the formulary; therefore, recommend continuing Glucerna 1.5. Unable to assess weight status at this time since there are no previous weights in chart. Will continue to monitor. Principal Problems/Diagnoses: hemoptysis PMH: hypertension, diabetes mellitus, congestive heart failure, CVA, atrial fibrillation, chronic kidney disease, coronary artery disease, multiple admissions for aspiration and pneumonia, hemorrhagic CVA, atrial fibrillation, mechanical mitral valve I/O: 1260/- GI: large, round, distended abdomen, flatus present Skin: stage 2 sacrum pressure ulcer and unstageable ear pressure ulcer Labs: (09/13) Na 139, K 4.5, BUN 21, Cr 0.52, Glu 118, AST 64 Meds: lasix, pepcid, cefepime, vancomycin Ht: 65 inches Wt: 160 lbs BMI: 26.6 kg/m2 IBW: 125 lbs Malnutrition Evaluation (09/14/19) Unable to assess. Will re-evaluate at follow-up as appropriate. Nutrition Prescription (Diet Order): NPO, Glucerna 1.5 @ 30 mL/hr Estimated Nutritional Needs: 5596-3319 calories/day (18-20 kcal/kg CBW) 73-109 g protein/day (1-1.5 g pro/kg CBW) Diet Adequacy: Not meeting calorie needs, Not meeting protein needs with current tube feed order Tolerance: Tolerance pending Diet Education Needs Assessment: Diet education not indicated, patient on temporary/transition diet. Nutrition Care Level: moderate Nutrition Diagnosis: Inadequate oral intake related to medical status as evidenced by need for enteral nutrition. Goal: Patient will meet 75-100% of estimated needs by follow up Progress: N/A Interventions: -TF: Composition, Rate, Route, Recommended Modifications, Collaboration with other providers Monitoring/Evaluation: -Total energy intake, Total protein intake, Formula/Solution, Weight change Signed: Ro Pyle RD, LD
[2019-09-15] VITALS (23 sets, daily range): BP systolic 92–149; BP diastolic 53–87
[2019-09-15] MEDS: IPRATROPIUM BROMIDE 0.02% 2.5 ML NEB NEB SCH ×4 (00:20→19:20)
[2019-09-15] MEDS: ALBUTEROL SULF 0.083% NEB SOLN 3 ML NEB NEB SCH ×4 (00:20→19:20)
[2019-09-15] MEDS: VANCOMYCIN 1GM/NS 250 ML 250 ML IV SCH (01:17)
[2019-09-15] MEDS: CEFEPIME 1GM/NS 0.9% 50 ML 50 ML IV SCH (03:58)
[2019-09-15 05:18] LABS: BASOPHILS % 0.2 % (0.0-1.0); EOSINOPHILS # (AUTO) 0.1 (0.0-0.4); EOSINOPHILS % 2.2 % (0.0-6.0); HEMATOCRIT 24.1 % (34.2-44.1); HEMOGLOBIN 7.1 g/dL (12.0-16.0); LYMPHOCYTES # (AUTO) 2.1 (1.0-3.2); LYMPHOCYTES % 36.1 % (18.0-39.1); MEAN CORPUSCULAR HEMOGLOBIN 30.7 pg (28-32); MEAN CORPUSCULAR HGB CONC 29.5 g/dL (31-35); MEAN CORPUSCULAR VOLUME 104.3 fL (81-99); MONOCYTES # (AUTO) 0.8 (0.2-0.8); MONOCYTES % 14.1 % (4.4-11.3); NEUTROPHILS # (AUTO) 2.8 (2.1-6.9); NEUTROPHILS % 46.9 % (38.7-80.0); PLATELET COUNT 195 x10e3/uL (140-360); RED BLOOD COUNT 2.31 x10e6/uL (3.6-5.1)
[2019-09-15 05:38] LABS: ANION GAP 10.2 mmol/L (8-16); BLOOD UREA NITROGEN 18 mg/dL (7-26); BUN/CREATININE RATIO 33 (6-25); CARBON DIOXIDE 37 mmol/L (22-29); CHLORIDE 96 mmol/L (98-107); CREATININE, SERUM 0.55 mg/dL (0.57-1.11); EST GLOMERULAR FILTRATION RATE > 60 ML/MIN (60-); GLUCOSE 144 mg/dL (74-118); POTASSIUM 4.2 mmol/L (3.5-5.1); SODIUM 139 mmol/L (136-145)
[2019-09-15] MEDS: FAMOTIDINE 20 MG TAB PEG SCH (08:15)
[2019-09-15] MEDS: AMIODARONE HCL 200 MG TAB PEG SCH (08:15)
[2019-09-15] MEDS: FUROSEMIDE INJ 10 MG/ML 4 ML VIAL IV SCH ×2 (08:15→21:47)
[2019-09-15 10:51] LABS: CREATINE KINASE MB 0.9 ng/mL (0-5.0)
--- NOTE | 2019-09-15 11:17 | Progress Note ---
DATE: 09/14/2019 CHIEF COMPLAINT/HISTORY OF PRESENT ILLNESS: This is a 59-year-old woman, whose primary treating diagnosis is acute on chronic respiratory failure secondary to gram-negative sheri pneumonia (Serratia marcescens). The sputum culture reveals Serratia marcescens and meropenem has the best sensitivity to this organism. I spoke with her adult son today and he states the patient is a full code status. She is a full resuscitation status. White blood cell count today is 5800 with 46% segmented neutrophils. Hemoglobin 7.1 g/dL. Today's BUN and creatinine are 18 and 0.55 respectively. Potassium is 4.2. REVIEW OF SYSTEMS: As per HPI. PHYSICAL EXAMINATION: GENERAL: She is awake. She is nonverbal. She does not follow any commands. Her adult son is at bedside. VITAL SIGNS: Blood pressure 108/70, pulse 100, respiratory rate is 14, oxygen saturation 99% on trach collar with FiO2 of 28%, temperature 98.1, BMI 26. INTEGUMENT: Skin is warm and dry. Slight pallor. No jaundice or diaphoresis. HEENT: Anicteric sclerae with moist mucous membranes. The patient's left eye is disfigured from a recent infection. NECK: Supple. She has a tracheostomy tube in place and she is connected to trach collar. CARDIOVASCULAR: Distant heart sounds. Tachycardic rate with regular rhythm. LUNGS: The patient has crackles and rhonchi bilaterally. ABDOMEN: Soft. She has a G-tube in place, which is functional. EXTREMITIES: No edema or deformity. NEUROLOGIC: She is bedbound. The patient is not following commands as previously stated. DIAGNOSES: 1. Bilateral Serratia marcescens (gram-negative sheri) pneumonia. 2. Acute on chronic respiratory failure, resolving. 3. History of large intracerebral and cerebellar hemorrhage (June 25, 2019). 4. Paroxsymal atrial fibrillation. 5. History of mitral valve replacement. 6. Acute on chronic diastolic congestive heart failure. PLAN: 1. Follow hemoglobin and hematocrit. 2. Continue intravenous furosemide. 3. We will hold aspirin since patient has a history of intracerebral hemorrhaging and was having bleeding from her mouth recently. 4. Continue intravenous meropenem for patient's Serratia marcescens pneumonia. 5. We will discontinue intravenous vancomycin. 6. Continue respiratory care. 7. Tentative right-sided thoracentesis and bronchoscopy tomorrow. 8. I spoke with adult son and confirmed the patient is a full resuscitation status. 9. I spent 35 minutes in the care of this intensive care unit patient. MD VAL Davidson/CHRISTINE /[id number]
--- NOTE | 2019-09-15 12:11 | Diagnostic Imaging Report ---
EXAMINATION: CHEST SINGLE (PORTABLE) INDICATION: BILATERAL PNEUMONIA AND RIGHT SIDED PLEURAL EFFUSION COMPARISON: Chest x-ray 09-14-2019. FINDINGS: TUBES and LINES: Left upper extremity PICC tip terminates in the superior cavoatrial junction. Tracheostomy tube tip projects in the mid intrathoracic trachea. Ventriculoperitoneal shunt catheter traverses the left chest and enters the right upper abdomen LUNGS/PLEURA: Persistent bilateral interstitial and airspace opacities, large right and small left pleural effusions. Slightly decreased consolidation in the right midlung. HEART AND MEDIASTINUM: The cardiomediastinal silhouette is enlarged. Mitral valve replacement. BONES AND SOFT TISSUES: No acute osseous lesion. Soft tissues are unremarkable. Sternotomy wires. UPPER ABDOMEN: No free air under the diaphragm. . Cholecystectomy clips. IMPRESSION: Findings of multifocal aspiration with superimposed pulmonary edema. Large right and small left pleural effusions. Cardiomegaly. Signed by: Dr. Mirela Flower MD on 09/15/2019 12:07 PM
[2019-09-15] MEDS: MEROPENEM 1GM 100 ML IV SCH ×2 (13:24→21:47)
[2019-09-16] VITALS (25 sets, daily range): BP systolic 106–146; BP diastolic 59–92
[2019-09-16] MEDS: ALBUTEROL SULF 0.083% NEB SOLN 3 ML NEB NEB SCH ×4 (02:30→20:00)
[2019-09-16] MEDS: IPRATROPIUM BROMIDE 0.02% 2.5 ML NEB NEB SCH ×4 (02:30→20:00)
[2019-09-16 05:04] LABS: BASOPHILS % 0.3 % (0.0-1.0); EOSINOPHILS # (AUTO) 0.2 (0.0-0.4); EOSINOPHILS % 3.3 % (0.0-6.0); HEMATOCRIT 27.9 % (34.2-44.1); HEMOGLOBIN 8.3 g/dL (12.0-16.0); LYMPHOCYTES # (AUTO) 2.7 (1.0-3.2); LYMPHOCYTES % 38.4 % (18.0-39.1); MEAN CORPUSCULAR HEMOGLOBIN 29.7 pg (28-32); MEAN CORPUSCULAR HGB CONC 29.7 g/dL (31-35); MONOCYTES # (AUTO) 1.1 (0.2-0.8); MONOCYTES % 15.2 % (4.4-11.3); NEUTROPHILS % 42.1 % (38.7-80.0); PLATELET COUNT 232 x10e3/uL (140-360); RED BLOOD COUNT 2.79 x10e6/uL (3.6-5.1)
[2019-09-16 05:27] LABS: ANION GAP 11.3 mmol/L (8-16); BLOOD UREA NITROGEN 17 mg/dL (7-26); BUN/CREATININE RATIO 32 (6-25); CALCIUM 9.6 mg/dL (8.4-10.2); CARBON DIOXIDE 37 mmol/L (22-29); CHLORIDE 94 mmol/L (98-107); CREATININE, SERUM 0.53 mg/dL (0.57-1.11); EST GLOMERULAR FILTRATION RATE > 60 ML/MIN (60-); GLUCOSE 121 mg/dL (74-118); POTASSIUM 4.3 mmol/L (3.5-5.1); SODIUM 138 mmol/L (136-145)
[2019-09-16] MEDS: MEROPENEM 1GM 100 ML IV SCH ×3 (06:45→21:41)
--- NOTE | 2019-09-16 08:44 | NUR ---
Dr. Hong with Anesthesia performing bronchoscopy on patient.
[2019-09-16] MEDS ORDERED: SODIUM CHLORIDE 0.9% 1000ML 1,000 ML ONE (08:55)
[2019-09-16] MEDS: AMIODARONE HCL 200 MG TAB PEG SCH (09:00)
[2019-09-16] MEDS: FAMOTIDINE 20 MG TAB PEG SCH (09:00)
[2019-09-16] MEDS ORDERED: NOREPINEPHRINE 8 MG/D5W 250 ML 250 ML ONE (09:19)
--- NOTE | 2019-09-16 10:06 | Operative Report ---
DATE OF PROCEDURE: SURGEON: Gio Hong MD ADDENDUM: The patient had minimal bleeding. I estimated approximately 20 mL after biopsy. Gio Hong MD DS/MODL /[id number] MTDD
--- NOTE | 2019-09-16 11:16 | Diagnostic Imaging Report ---
EXAM: CHEST SINGLE (PORTABLE) DATE: 09/16/2019 10:21 AM INDICATION: Hemoptysis, post bronchoscopy COMPARISON: 09/15/2019 FINDINGS: Tracheostomy cannula and left sided PICC line identified in stable position. Ventriculoperitoneal shunt tubing noted coursing over the left hemithorax. There are stable postsurgical changes from prior median sternotomy and cardiac valve replacement. There is a grossly stable appearing moderate sized right pleural effusion. Stable small left pleural effusion also noted. There are increased bilateral interstitial and airspace opacities, unchanged from the prior examination. There is no evidence for new large focal consolidation or pneumothorax. The cardiomediastinal silhouette is partially obscured but appears grossly stable in appearance. No acute osseous abnormality is identified. IMPRESSION: No significant interval change from 09/15/2019. Unchanged moderate right and small left pleural effusions as well as increased bilateral interstitial and airspace opacities. Signed by: Dr. Layo Joy MD on 09/16/2019 11:12 AM
--- NOTE | 2019-09-16 12:37 | Progress Note ---
DATE: SUBJECTIVE: Ms. Perry underwent a bronchoscopy today. She is going for thoracocentesis today. The patient is comfortable. She had minimal bleed. PHYSICAL EXAMINATION: GENERAL: Currently alert. VITAL SIGNS: Stable. Confused. Afebrile. HEENT: She is not icteric. NECK: Supple. CHEST: Few crackles bilateral. HEART: S1 and S2. No S3, S4, or murmurs. ABDOMEN: Soft. The patient, who is currently on meropenem. LABORATORY DATA: Her white count 7.06 and hemoglobin 8.3. Her cultures are still pending. When she first came, the sputum showed Serratia on the . IMPRESSION: Aspiration pneumonia, to continue meropenem for 5 days. Continue supportive care as ordered. We will follow. MD KATHERINE Tejeda/CHRISTINE /[id number]
--- NOTE | 2019-09-16 12:38 | NUR ---
Bedside team setting up for thoracentesis.
--- NOTE | 2019-09-16 13:14 | Diagnostic Imaging Report ---
Ultrasound guided thoracentesis History: Right pleural effusion Technique: Written informed consent was obtained after discussing risks, benefits, and alternatives of the procedure with the patient. Patient was brought to the ultrasound suite and placed on the table in upright position. Pre-procedural ultrasound demonstrates a right pleural effusion. Suitable percutaneous access site was chosen in the posterior right chest. Overlying skin was prepared and draped in the usual sterile fashion. Planned needle tract was anesthetized with dilute Lidocaine for local anesthesia. Using sonographic guidance, an 5 Croatian one-step catheter was advanced into the right pleural effusion. Newspaper Illustrator images saved in the patient's medical record. Needle was removed, and catheter was advanced. Subsequently, 550 cc of clear yellow fluid was evacuated. Catheter was removed. Hemostasis achieved at puncture site by direct compression. The patient tolerated the procedure well. There were no complications. Post procedure chest radiograph was ordered. Impression: Technically successful sonographic guided right thoracentesis with evacuation of 550 cc of serous fluid. Signed by: Dr. Layo Joy MD on 09/16/2019 1:10 PM
--- NOTE | 2019-09-16 14:03 | Diagnostic Imaging Report ---
EXAM: CHEST SINGLE (PORTABLE) DATE: 09/16/2019 1:15 PM INDICATION: Status post thoracentesis COMPARISON: 09/19/2019 at 1021 FINDINGS: There has been interval reduction of right-sided pleural effusion with small residual effusion remaining. There is improved aeration of the right lung base. There is no evidence for pneumothorax status post thoracentesis. Mildly increased right basilar opacities noted suggestive of atelectasis. The remainder of the examination is unchanged in the recent prior examination. Tracheostomy cannula, left-sided PICC line, and partially visualized ventriculoperitoneal shunt tubing again noted in stable position. There are postsurgical changes from median sternotomy and cardiac valve replacement. The cardiomediastinal silhouette is stable in appearance. No acute osseous abnormality is identified. IMPRESSION: No evidence for pneumothorax status post thoracentesis. Signed by: Dr. Layo Joy MD on 09/16/2019 1:59 PM
[2019-09-16 14:42] LABS: BODY FLUID APPEARANCE SL.CLOUDY; BODY FLUID COLOR YELLOW; BODY FLUID TYPE PLEURAL
[2019-09-16 14:44] LABS: RBC,BODY FLUID 534 cells/uL; WBC,BODY FLUID 296 cells/uL
[2019-09-16 14:48] LABS: LYMPHOCYTES,BODY FLUID 38 %; MONO/MACROPHG,BODY FLUID 10 %; NEUTROPHILS,BODY FLUID 3 %; OTHER CELLS,BODY FLUID 49 %
--- NOTE | 2019-09-16 15:23 | Operative Report ---
DATE OF PROCEDURE: SURGEON: Gio Hong MD Patient of Dr. Robi Graves. INDICATIONS: The patient admitted with hemoptysis, history of remote intercerebral bleed, vegetative state. PROCEDURE IN DETAIL: After informed consent, the patient was bronchoscoped after MAC anesthesia with #7 endotracheal tube. The inner cannula was removed. The patient's blood pressure dipika during the procedure. She seemed agitated, was given 2 mL of propofol. There was evidence of apnea at this point, and upon blood pressure, she was given saline bolus and was bagged until more stable. There was evidence of an ulcer at the mainstem bronchus. There was no active bleeding at the time of the bronchoscopy. There is an area of severe inflammation and possible tumor in the right lower lobe. This area was biopsied x4. _which occasioned moderate bleeding, controlled with saline lavage. Two biopsies were also taken from the aixa. The patient tolerated the endotracheal tube. The tracheostomy tube was removed at the time of the procedure and the majority of the trachea was observed. There was no obvious ulceration or bleeding site. ___superficial ulcer at the aixa .Suspicious lesion, right lower lobe. Biopsies taken. Appeared stable following the procedure. Blood pressure had returned to baseline. MD GIOVANNI Luna/MODL /[id number] MTDD
--- NOTE | 2019-09-16 15:30 | NUR ---
Noted BRB from pt's mouth, suctioned with yaunker, pt has teeth clenched is biting tongue. Bite block placed to prevent further damage to tongue and assist with airway.
[2019-09-16] MEDS ORDERED: LIDOCAINE HCL 2% LOCAL INJ 5 ML SDV VIAL INJ ONE (17:17)
[2019-09-16] MEDS ORDERED: PROPOFOL IV EMULSION 10 MG/ML 20 ML VIAL ONE (17:17)
[2019-09-16] MEDS ORDERED: FUROSEMIDE INJ 10 MG/ML 4 ML VIAL IV SCH (18:00)
[2019-09-16] MEDS ORDERED: LATANOPROST(OPTH) 2.5 ML BTL OP SCH (21:00)
[2019-09-17] VITALS (10 sets, daily range): BP systolic 118–132; BP diastolic 63–73
[2019-09-17] MEDS: IPRATROPIUM BROMIDE 0.02% 2.5 ML NEB NEB SCH ×2 (02:00→07:54)
[2019-09-17] MEDS: ALBUTEROL SULF 0.083% NEB SOLN 3 ML NEB NEB SCH ×2 (02:00→07:54)
[2019-09-17] MEDS: MEROPENEM 1GM 100 ML IV SCH (06:13)
--- NOTE | 2019-09-17 09:54 | NUR ---
PT FROM [facility] AND WILL RETURN THERE [facility]ONE[facility]ANK SPOKE WITH CHERI AT [facility] WHO STATES THEY ARE READY TO TAKE PT BACK WHEN DISCHARGED CM SPOKE WITH DR Janet KUMAR TO NOTIFY OF ABOVE OK TO DISCHARGE BACK TO [facility] IF OK WITH DR MELÉNDEZ ICU NURSE , CARMEL NOTIFIED OF ABOVE AND WILL CALL DR MELÉNDEZ FOR DC ORDER CM TO FOLLOW
--- NOTE | 2019-09-17 10:35 | Diagnostic Imaging Report ---
EXAMINATION: CHEST SINGLE (PORTABLE) INDICATION: Hemoptysis COMPARISON: Multiple prior chest radiograph, most recently 09/16/2019 FINDINGS: LINES/TUBES:Tracheostomy tube and left PICC line unchanged. LUNGS:The lungs are moderately inflated. Unchanged mild patchy bibasilar opacities. PLEURA:Small right pleural effusion. Possible trace left pleural effusion. No pneumothorax. MEDIASTINUM:The cardiomediastinal silhouette appears unchanged in size and shape. BONES/SOFT TISSUES:No acute osseous injury. Sternotomy wires in place. ABDOMEN:No free air under the diaphragm. Status post cholecystectomy. IMPRESSION: No significant interval change. Signed by: Makenna Rivas MD on 09/17/2019 10:32 AM
--- NOTE | 2019-09-17 10:46 | NUR ---
[facility]ACILITY DISCHARGE INFORMATION PATIENT HAS BEEN ACCEPTED TO: NAME: [facility] [id number] [facility] Janet ACCEPTING MD: JOSÉ ROOM: 501 NURSE CALL REPORT TO: [phone] IMM SIGNED AND OBTAINED (if applicable): NA THE FOLLOWING DOCUMENTS MUST ACCOMPANY PATIENT FOR TRANSFER: COPIED CHART: PACKET COMPLETED AND GIVEN TO FRITZ
--- NOTE | 2019-09-17 10:46 | NUR ---
PBTAINED PERMISSIONT O INITIATE RETURN TO [facility], FAXED CLINICALS
--- NOTE | 2019-09-17 13:25 | NUR ---
pt [facility] to [facility] in stable condition. PICC removed prior to discharge (tip intact), extra supplies sent with patient
== END 2019-09-17 13:25 | DRG 166 ==
LOC: ER 08:34 → ERHOLD 09:16 → ICU 10:54
PROC: 02HV33Z Insertion of Infusion Device into Superior Vena Cava, Percutaneous Approach (ICD-10-PCS; 2019-09-14)
PROC: B548ZZA Ultrasonography of Superior Vena Cava, Guidance (ICD-10-PCS; 2019-09-14)
PROC: 0BBF8ZX Excision of Right Lower Lung Lobe, Via Natural or Artificial Opening Endoscopic, Diagnostic (ICD-10-PCS; 2019-09-16)
PROC: 0W993ZZ Drainage of Right Pleural Cavity, Percutaneous Approach (ICD-10-PCS; 2019-09-16)
PROC: 0BB28ZX Excision of Carina, Via Natural or Artificial Opening Endoscopic, Diagnostic (ICD-10-PCS; principal; 2019-09-16 09:00)
DX: J15.6 Pneumonia due to other Gram-negative bacteria (principal); J96.20 Acute and chronic respiratory failure, unspecified whether with hypoxia or hypercapnia; I50.33 Acute on chronic diastolic (congestive) heart failure; J90 Pleural effusion, not elsewhere classified; R04.2 Hemoptysis; I13.0 Hypertensive heart and chronic kidney disease with heart failure and stage 1 through stage 4 chronic kidney disease, or unspecified chronic kidney disease; R40.3 Persistent vegetative state; J69.0 Pneumonitis due to inhalation of food and vomit; E11.22 Type 2 diabetes mellitus with diabetic chronic kidney disease; N18.9 Chronic kidney disease, unspecified; Z86.73 Personal history of transient ischemic attack (TIA), and cerebral infarction without residual deficits; I25.10 Atherosclerotic heart disease of native coronary artery without angina pectoris; Z95.2 Presence of prosthetic heart valve; J98.09 Other diseases of bronchus, not elsewhere classified; R06.81 Apnea, not elsewhere classified; I48.0 Paroxysmal atrial fibrillation; Z11.59 Encounter for screening for other viral diseases; Z74.01 Bed confinement status; Z79.82 Long term (current) use of aspirin; Z95.5 Presence of coronary angioplasty implant and graft; Z79.01 Long term (current) use of anticoagulants; Z98.2 Presence of cerebrospinal fluid drainage device; D53.9 Nutritional anemia, unspecified
CPT/HCPCS: 31622; 32555; 36415; 36569; 36600; 71045; 71260; 74470; 80048; 80053; 82550; 82553; 82607; 82746; 82948; 83615; 83880; 84157; 84436; 84443; 84479; 84484; 85025; 85610; 85730; 86850; 86900; 87040; 87070; 87102; 87116; 87186; 87205; 87206; 87335; 87635; 88112; 88305; 89051; 93005; 93306; 94640; 97139; 99284; J0456; J0692; J1940; J2001; J3370; J7030; Q9967

== ENCOUNTER 2019-09-27 20:18 | Inpatient (IN) | payer OTHER, SELFPAY ==
[~2019-09-27] VITALS: Ht 154.9 cm; Wt 66.7 kg
[~2019-09-27 20:18] MED LIST: AMIODARONE HCL200 MG PEG; ASPIR 8181 MG PEG; ATROPINE S0.4 MG/1 M IV; FAMOTIDINE20 MG PEG; LATANOPROST 0.7.5 ML
--- OUTSIDE RECORDS SUMMARY | 2019-09-27 20:20 | XMS REPORT | Clinical Summary ---
Author Author PALLAVI [facility] Address Unknown Phone Unavailable Care Team Providers Care Carbon Coater Machine Operator Name Role Phone Luke Santosh Chinchilla MD PCP Unavailab le Allergies No Known Allergies Medications End Date Status Medication Sig Dispensed Refills Start Date Active atorvastatin (LIPITOR) 80 Take 1 tablet 30 tablet 3 MG tablet (80 mg total) 7 by [...] valve repair 09/20/2016 Coronary artery disease involving [place] coronary art keyla of [place] heart 09/09/2016 without angina pectoris Mitral regurgitation [...] ot Implanted Type Area Manufactur er 12/13/2020 [id number] / [id number] / Ring Valve Mitrl Martel 27 [id number] - Valves N/A: Chest [employer]: [id number] STRUCTURAL Implanted: Qty: 1 on 09/20/2016 by HEART Toyin, Gio Cedillo MD Results Not on fileafter 09/26/2018 Insurance Payer Benefit Subscriber ID Type Phone Address Plan / Group [employer] - [employer] CARE [employer] COH xxxxxxxxxxx HMO/POS NETWORK [id number] Advance Directives For more information, please contact: [facility] [address] [place] [address] Date Inactivated Comments Code Status Date Activated 09/26/2016 6:03 PM Full Code 09/20/2016 10:53 AM This code status was determined by: Patient 07/28/2016 8:58 PM Full Code 07/28/2016 7:24 AM This code status was determined by: Patient
--- OUTSIDE RECORDS SUMMARY | 2019-09-27 20:21 | XMS REPORT | Continuity of Care Document ---
Author Author [facility] t Organization [facility] t Address [address] [place] [address] Phone Unavailable Care Team Providers Care Waist Cutter Name Role Phone MD TRIPP KUMAR PCP TRIPP KUMAR Attphys Unavailable JOEL VENTURA Attphys Unavailable TRIPP KUMAR Admphys Unavailable JOEL VENTURA Admphys Unavailable Payers Payer Name Policy Type Policy Number Effective Date Expiration Date S harrison Cdc Review Covid19 [id number] [facility] Problems Condition Name Condition Details Condition Category Status Onset Date Resolution Date Last Treatment Date Treating Clinician Comments Source Essential hypertension Essential hypertension Disease Active 2016-09-21 00:00:00 [facility] Mitral valve insufficiency Mitral valve insufficiency Disease Active 2016-09-20 00:00:00 [facility] Acute pulmonary insufficiency following thoracic surge ry Acute pulmonary insufficiency following thoracic surgery Disease Active 2016-09-20 00:[facility] Acute blood loss as cause of postoperative anemia Acut e blood loss as cause of postoperative anemia Disease Active 2016-09-20 00:00:00 [facility] S/P mitral valve repair S/P mitral valve repair Disease Active 2016-09-20 00:00:00 [facility] Coronary artery disease involving [place] coronary artery of [place] heart without angina pectoris Coronary artery disease involving [place] coronary artery of [place] heart without angina pectoris Disease Active 2016-09-09 00:00:00 [facility] Mitral regurgitation Mitral regurgitation Disease Active 00:00:00 [facility] Abnormal stress test Abnormal stress test Disease Active 00:00:00 [facility] Allergies, Adverse Reactions, Alerts Allergy Name Allergy Type Status Severity Reaction(s) Onset Date Inacti ve Date Treating Clinician Comments Source No Known Allergies DA Active U 2019-04-08 00:00:00 Family History Family Member Diagnosis Comments Start Date Stop Date Source Natural brother Diabetes [facility] Natural brother Hypertension [facility] Natural father Diabetes [facility] Natural father Hypertension [facility] Natural mother Diabetes [facility] Social History Social Habit Start Date Stop Date Quantity Comments Source Sex Assigned At [facility] Cigarettes smoked current (pack per day) - Reported 00:00:00 2016-09-26 00:00:00 [facility] Smoking Status Start Date Stop Date Source Current every day smoker 2016-09-26 00:00:00 [facility] Medications Ordered Medication Name Filled Medication Name Start Date Stop Da te Current Medication? Ordering Clinician Indication Dosage Frequency Signature (SIG) Comments Components Source atorvastatin (LIPITOR) 80 MG tablet 2016-09-26 00:00:00 Yes 80mg QD Take 1 tablet (80 mg total) by mouth daily. [facility] famotidine (PEPCID) 20 MG tablet 2016-09-26 00:00:00 Yes 20mg Q.5D Take 1 tablet (20 mg total) by mouth 2 (two) times daily. [facility] Amiodarone Hcl Amiodarone Hcl Yes 200 Daily [facility] Aspirin (Aspir 81) 81 Mg TABLET. Aspirin (Aspir 81) 81 Mg TABLET. Yes 81 Daily [facility] Atropine Sulfate Atropine Sulfate Yes .4 [facility] Famotidine Famotidine Yes 20 Daily [facility] Latanoprost/Pf (Latanoprost 0.005% Eye Drop) 7.[address] [place] Latanoprost/Pf (Latanoprost 0.005% Eye Drop) 7.5 Ml DROPS Yes [facility] Vital Signs Vital Name Observation Time Observation Value Comments Source Body Temperature 2019-09-17 11:00:00 98.2 [degF] [facility] BMI (Body Mass Index) 2019-09-16 20:15:00 26.6 kg/m2 [facility] Weight 2019-09-13 11:10:00 160 [lb_av] [facility] Procedures Procedure Date / Time Performed Performing Clinician Sourc e Thoracentesis with ultrasound guidance 2019-09-16 00:00:00 [facility] Computed tomography of chest with contrast 2019-09-13 00:00:00 [facility] Plan of Care Planned Activity Planned Date Details Comments Source Future Scheduled Test 2019-12-17 00:00:00 INFLUENZA VACCINE (Season Ended) [code = INFLUENZA VACCINE (Season Ended)] [facility] Future Scheduled Test 1980-01-24 00:00:00 Screening for margo gnant neoplasm of cervix (procedure) [code = 485951174] [facility] 00:00:00 PNEUMOCOCCAL VACCI NE 2-64 YEARS AT RISK (1 of 1 - PPSV23) [code = PNEUMOCOCCAL VACCINE 2-64 YEARS AT RISK (1 of 1 - PPSV23)] [facility] r Future Scheduled Test 1959 00:00:00 BREAST CANCER SCRE ENING [code = BREAST CANCER SCREENING] [facility] r Future Scheduled Test 1959 00:00:00 COLON CANCER SCREE BOO COLONOSCOPY [code = COLON CANCER SCREENING COLONOSCOPY] [facility] Results Test Description Test Time Test Comments Results Result Comments Source CHEST SINGLE (PORTABLE) 2019-09-17 10:30:00 [place] [address] Patient Name: MICHAELLE ADAM MR #: [id number] : 1960 Age/Sex: 59/F Req #: [id number] Adm Physician: TRIPP KUMAR MD Ordered by: MAHNAZ MELÉNDEZ MD Report #: [id number] Location: ICU Room/Bed: [facility] Procedure: [id number] DX/CHEST SINGLE (PORTABLE) Exam Date: 09/17/19 Exam Time: 819 REPORT STATUS: Signed EXAMINATION: CHEST SINGLE (PORTABLE) INDICATION: Hemoptysis COMPARISON: Multiple prior chest radiograph, most recently 09/16/2019 FINDINGS: LINES/TUBES:Tracheostomy tube and left PICC line unchanged. LUNGS:The lungs are moderately inflated. Unchanged mild patchy bibasilar opacities. PLEURA:Small right pleural effusion. Possible trace left pleural effusion. No pneumothorax. MEDIASTINUM:The cardiomediastinal silhouette appears unchanged in size and shape. BONES/SOFT TISSUES:No acute osseous injury. Sternotomy wires in place. ABDOMEN:No free air under the diaphragm. Status post cholecystectomy. IMPRESSION: No significant interval change. Signed by: Alessandra Bajwa MD on 09/17/2019 10:32 AM Dictated By: ALESSANDRA BAJWA MD 1032 Transcribed By: Jose LACY on 09/17/19 1032 COPY TO: MAHNAZ MELÉNDEZ MD CHEST SINGLE (PORTABLE) 2019-09-16 13:57:00 [place] [address] Patient Name: MICHAELLE ADAM MR #: [id number] : 1960 Age/Sex: 59/F Req #: [id number] Adm Physician: TRIPP KUMAR MD Ordered by: LAYO JOY MD Report #: [id number] Location: ICU Room/Bed: ICU 194 Procedure: [id number] DX/CHEST SINGLE (PORTABLE) Exam Date: 09/16/19 Exam Time: 1315 REPORT STATUS: Signed EXAM: CHEST SINGLE (PORTABLE) DATE: 09/16/2019 1:15 PM INDICATION: Status post thoracentesis COMPARISON: 09/19/2019 at 1021 FINDINGS: There has been interval reduction of right-sided pleural effusion with small residual effusion remaining. There is improved aeration of the right lung base. There is no evidence for pneumothorax status post thoracentesis. Mildly increased right basilar opacities noted suggestive of atelectasis. The remainder of the examination is unchanged in the recent prior examination. Tracheostomy cannula, left-sided PICC line, and partially visualized ventriculoperitoneal shunt tubing again noted in stable position. There are postsurgical changes from median sternotomy and cardiac valve replacement. The cardiomediastinal silhouette is stable in appearance. No acute osseous abnormality is identified . IMPRESSION: No evidence for pneumothorax status post thoracentesis. Signed by: Dr. Layo Joy MD on 09/16/2019 1:59 PM Dictated By: LAYO JOY MD 1351 Transcribed By: HORTENCIA on 09/16/19 1358 COPY TO: LAYO JOY MD THORACENTESIS/IMAGE GUIDED 2019-09-16 13:10:00 [place] [address] Patient Name: MICHAELLE ADAM MR #: [id number] : 1960 Age/Sex: 59/F Req #: [id number] Adm Physician: TRIPP KUMAR MD Ordered by: MAHNAZ MELÉNDEZ MD Report #: [id number] Location: ICU Room/Bed: ICU 194-1 Procedure: US/THORACENTESIS/IMAGE GUIDED Exam Date: 09/16/19 Exam Time: 1229 REPORT STATUS: Signed Ultrasound guided thoracentesis History: Right pleural effusion Technique: Written informed consent was obtained after discussing risks, benefits, and alternatives of the procedure with the patient. Patient was brought to the ultrasound suite and placed on the table in upright position. Pre-procedural ultrasound demonstrates a right pleural effusion. Suitable percutaneous access site was chosen in the posterior right chest. Overlying skin was prepared and draped in the usual sterile fashion. Planned needle tract was anesthetized with dilute Lidocaine for local anesthesia. Using sonographic guidance, an 5 Gabonese one-step catheter was advanced into the right pleural effusion. Work Study Student images saved in the patient's medical record. Needle was removed, and catheter was advanced. Subsequently, 550 cc of clear yellow fluid was evacuated. Catheter was removed. Hemostasis achieved at puncture site by direct compression. The patient tolerated the procedure well. There were no complications. Post procedure chest radiograph was ordered. Impression: Technically successful sonographic guided right thoracentesis with evacuation of 550 cc of serous fluid. Signed by: Dr. Layo Joy MD on 09/16/2019 1:10 PM Dictated By: LAYO JOY MD 1310 Transcribed By: HORTENCIA on 09/16/19 1310 COPY TO: MAHNAZ MELÉNDEZ MD Body fluid protein measurement (mass/volume) 2019-09-16 12:4 5:00 Test Item Body Fluid Total Protein (test code = 2881-1) 2.0 [facility] lactate dehydrogenase measurement (enzymatic activity/volume)2019-09-16 12:45:00* Test Item Value Reference Range Interpretation Comments Body Fluid Lactate Dehydrogenase (test code = 035556470) 73 No reference range has been established for this specimen type.[facility])2019-09-16 11:08:00 [facility] [address] [place] [address] Patient Name: MICHAELLE ADAM MR #: [id number] : 1960 Age/Sex: 59/F Req #: [id number] Adm Physician: TRIPP KUMAR MD Ordered by: MAHNAZ MELÉNDEZ MD Report #: [id number] Location: ICU Room/Bed: ICU [facility] Procedure: [id number] DX/CHEST SINGLE (POR TABLE) Exam Date: 09/16/19 Exam Time: 1021 REPORT STATUS: Signed EXAM: CHEST SINGLE (PORTABLE) DATE: 09/16/2019 10:21 AM INDICATION: Hemoptysis, post bro nchoscopy COMPARISON: 09/15/2019 FINDINGS: Tracheostomy cannula and left sided PICC line identified in stable position. Ventriculoperitoneal shunt tubing noted coursing over the left hemithorax. There are stable postsurgical changes from prior median sternotomy and cardiac valve replacement. There is a grossly stable appearing moderate sized right pleural effusion. Stable small left pleural effusion also noted. There are increased bilateral interst itial and airspace opacities, unchanged from the prior examination. There is n o evidence for new large focal consolidation or pneumothorax. The cardiomed iastinal silhouette is partially obscured but appears grossly stable in appear ance. No acute osseous abnormality is identified. IMPRESSION: No si gnificant interval change from 09/15/2019. Unchanged moderate right and smal l left pleural effusions as well as increased bilateral interstitial and airsp rosana opacities. Signed by: Dr. Layo Joy MD on 09/16/2019 11:12 AM Dictated By: LAYO JOY MD 11 COPY TO: MAHNAZ MELÉNDEZ MD Specimen source identification of body [id number] 09:05:00* Test Item Value Reference Range Interpretation Comments Body Fluid Type (test code = 88482-8) PLEURAL [facility] Center[facility] color of body fluid 2019-09-16 09:05:00* Test Item Value Reference Range Interpretation Comments Body Fluid Color (test code = 6824-7) YELLOW [facility] CenterDetermination of appearance of body fluid 2019-09-16 09:05:00* Test Item Value Reference Range Interpretation Comments Body Fluid Appearance (test code = 9335-1) SL.CLOUDY [facility] body fluid leukocytes count (number/volume)2019-09-16 09:05:00* Test Item Value Reference Range Interpretation Comments Body Fluid WBC (test code = 6743-9) 296 [facility] body fluid erythrocytes count (number/volume)2019-09-16 09:05:00* Test Item Value Reference Range Interpretation Comments Body Fluid RBC (test code = 6741-3) 534 [facility] fluid neutrophils/100 sprbyscyto0259-71-63 09:05:00* Test Item Value Reference Range Interpretation Comments Body Fluid Neutrophils (test code = 90879-3) 3 [facility] fluid lymphocyte gtdqe8630-67-32 09:05:00* Test Item Value Reference Range Interpretation Comments Body Fluid Lymphocytes (test code = 71733878) 38 [facility] fluid monocyte wvubf6718-93-36 09:05:00* Test Item Value Reference Range Interpretation Comments Body Fluid Monocytes (test code = 64505-2) 10 [facility] Center[facility] fluid basophil mrahdiupoi4106-61-16 09:05:00* Test Item Value Reference Range Interpretation Comments Body Fluid Basophils (test code = 71401-2) See Comment Moderate Macrophages. [facility] CenterBody fluid other cells manual sjppm6136-02-27 09:05:00* Test Item Value Reference Range Interpretation Comments Body Fluid Other Cells (test code = 878842259) 49 [facility] CenterTotal cell rfvzm4574-60-30 09:05:00* Test Item Value Reference Range Interpretation Comments Body Fluid Total Cells Counted (test code = 65858-0) 100 [facility] CenterCapillary blood glucose measurement by glucometer (mass/volume)2019-09-16 08:42:00* Test Item Value Reference Range Interpretation Comments Bedside Glucose (test code = 05032-8) 132 70-120 Meter ID: [id number] Regional Medical CenterBlood leukocytes automated count (number/volume)2019-09-16 04:10:00* Test Item Value Reference Range Interpretation Comments White Blood Count (test code = 6690-2) 7.06 4.8-10.8 [facility]Bl[facility] erythrocytes automated count (number/volume)2019-09-16 04:10:00* Test Item Value Reference Range Interpretation Comments Red Blood Count (test code = 789-8) 2.79 3.6-5.1 [facility] CenterBlood hemoglobin measurement (moles/volume)2019-09-16 04:10:00* Test Item Value Reference Range Interpretation Comments Hemoglobin (test code = 40449-7) 8.3 12.0-16.0 [facility] CenterAutomated blood hematocrit (volume fraction)2019-09-16 04:10:00* Test Item Value Reference Range Interpretation Comments Hematocrit (test code = 4544-3) 27.9 34.2-44.1 [facility] CenterAutomated erythrocyte mean corpuscular tdnlif0727-77-93 04:10:00* Test Item Value Reference Range Interpretation Comments Mean Corpuscular Volume (test code = 787-2) 100.0 81-99 [facility] CenterAutomated erythrocyte mean corpuscular hemoglobin (mass per erythrocyte)2019-09-16 04:10:00* Test Item Value Reference Range Interpretation Comments Mean Corpuscular Hemoglobin (test code = 785-6) 29.7 28-32 [facility] CenterAutomated erythrocyte mean corpuscular hemoglobin concentration measurement (mass/volume)2019-09-16 04:10:00* Test Item Value Reference Range Interpretation Comments Mean Corpuscular Hemoglobin Concent (test code = 786-4) 29.7 31-35 [facility] CenterRDW WnkDo-Ybi7916-31-01 04:10:00* Test Item Value Reference Range Interpretation Comments Red Cell Distribution Width (test code = 05952-6) 14.0 11.7 -14.4 [facility] CenterAutomated blood platelet count (count/volume)2019-09-16 04:10:00* Test Item Value Reference Range Interpretation Comments Platelet Count (test code = 777-3) 232 140-360 [facility] CenterAutomated blood segmented neutrophil count as percentage of total olzswqdmwj4074-30-30 04:10:00* Test Item Value Reference Range Interpretation Comments Neutrophils (%) (Auto) (test code = 98641-7) 42.1 38.7-80.0 [facility] CenterAutomated blood lymphocyte count as percentage ot total dnsplmwimz7376-68-79 04:10:00* Test Item Value Reference Range Interpretation Comments Lymphocytes (%) (Auto) (test code = 736-9) 38.4 18.0-39.1 [facility] CenterAutomated blood monocyte count as percentage of total huzeljyqjj9621-92-79 04:10:00* Test Item Value Reference Range Interpretation Comments Monocytes (%) (Auto) (test code = 5905-5) 15.2 4.4-11.3 [facility] CenterAutomated blood eosinophil count as percentage of total prxmfdmpzz8529-05-52 04:10:00* Test Item Value Reference Range Interpretation Comments Eosinophils (%) (Auto) (test code = 713-8) 3.3 0.0-6.0 [facility] CenterAutomated blood basophil count as percentage of total oetbrenwqf9219-09-16 04:10:00* Test Item Value Reference Range Interpretation Comments Basophils (%) (Auto) (test code = 706-2) 0.3 0.0-1.0 [facility] CenterFluoroscopic procedure less than one hour bumdczhn8068-85-22 04:10:00* Test Item Value Reference Range Interpretation Comments IM GRANULOCYTES % (test code = IM GRANULOCYTES %) 0.7 0.0- 1.0 [facility] CenterAutomated blood neutrophil count 2019-09-16 04:10:00* Test Item Value Reference Range Interpretation Comments Neutrophils # (Auto) (test code = 751-8) 3.0 2.1-6.9 [facility] CenterBlood lymphocytes count (number/volume) 2019-09-16 04:10:00* Test Item Value Reference Range Interpretation Comments Lymphocytes # (Auto) (test code = 48236-2) 2.7 1.0-3.2 [facility] CenterBlood monocytes automated count (number/volume)2019-09-16 04:10:00* Test Item Value Reference Range Interpretation Comments Monocytes # (Auto) (test code = 742-7) 1.1 0.2-0.8 [facility] CenterAutomated blood eosinophil count 2019-09-16 04:10:00* Test Item Value Reference Range Interpretation Comments Eosinophils # (Auto) (test code = 711-2) 0.2 0.0-0.4 [facility] CenterAutomated blood basophil count (count/volume)2019-09-16 04:10:00* Test Item Value Reference Range Interpretation Comments Basophils # (Auto) (test code = 704-7) 0.0 0.0-0.1 [facility] CenterFluoroscopic procedure less than one hour klmzvucc4913-21-26 04:10:00* Test Item Value Reference Range Interpretation Comments Absolute Immature Granulocyte (auto (shy t code = Absolute Immature Granulocyte (auto) 0.05 0-0.1 [facility]um or plasma sodium measurement (moles/volume)2019-09-16 04:10:00* Test Item Value Reference Range Interpretation Comments Sodium Level (test code = 2951-2) 138 136-145 [facility]rapevineerum or plasma potassium measurement (moles/volume)2019-09-16 04:10:00* Test Item Value Reference Range Interpretation Comments Potassium Level (test code = 2823-3) 4.3 3.5-5.1 [facility]vineerum or plasma chloride measurement (moles/volume)2019-09-16 04:10:00* Test Item Value Reference Range Interpretation Comments Chloride Level (test code = 2075-0) 94 98-107 [facility]vineerum or plasma carbon dioxide, total measurement (moles/volume)2019-09-16 04:10:00* Test Item Value Reference Range Interpretation Comments Carbon Dioxide Level (test code = 2028-9) 37 22-29 [facility]vineerum or plasma anion nah0210-78-70 04:10:00* Test Item Value Reference Range Interpretation Comments Anion Gap (test code = 82317-3) 11.3 8-16 [facility]vine[facility]um or plasma urea nitrogen measurement (mass/volume)2019-09-16 04:10:00* Test Item Value Reference Range Interpretation Comments Blood Urea Nitrogen (test code = 3094-0) 17 7-26 [facility]vine[facility]um or plasma creatinine measurement (mass/volume)2019-09-16 04:10:00* Test Item Value Reference Range Interpretation Comments Creatinine (test code = 2160-0) 0.53 0.57-1.11 [facility]um or plasma urea nitrogen/creatinine mass drzhf1407-34-51 04:10:00* Test Item Value Reference Range Interpretation Comments BUN/Creatinine Ratio (test code = 3097-3) 32 6-25 [facility] CenterEstimated glomerular filtration rate (GFR) ffivijsxjletj3510-43-58 04:10:00* Test Item Value Reference Range Interpretation Comments Estimat Glomerular Filtration Rate (test code = 825475228) > 60 >60 Ranges were taken from the National Kidney Disease Education Program and the [employer] [employer]nhrm[employer] literature.Reference ranges:60 or greater: Ossgba35-84 ( for 3 consecutive months): Chronic kidney disease 15 or less: Kidney failureChildress Regional Medical CenterGlucose gdjzxxvpcui8557-64-26 04:10:00* Test Item Value Reference Range Interpretation Comments Glucose Level (test code = SED0341) 121 74-118 [facility]vineerum or plasma calcium measurement (mass/volume)2019-09-16 04:10:00* Test Item Value Reference Range Interpretation Comments Calcium Level (test code = 83531-7) 9.6 8.4-10.2 [facility] CenterBNP Dgb-tYpn0060-32-01 04:10:00* Test Item Value Reference Range Interpretation Comments B-Type Natriuretic Peptide (test code = 23670-8) 164.1 0-100 [facility] CenterCHES SINGLE (PORTABLE)2019-09-15 12:04:00 [place] [address] Patient Name: MICHAELLE ADAM MR #: [id number] : 1960 Age/Sex: 59/F Req #: [id number] Adm Physician: TRIPP KUMAR MD Ordered by: ALMA WINCHESTER MD Report #: [id number] Location: ICU Room/Bed: [facility] Procedure: [id number] DX/CHEST SINGLE (P ORTABLE) Exam Date: 09/15/19 Exam Time: 1145 REPORT STATUS: Signed EXAMINATION: [facility] SINGLE (PORTABLE) INDICATION: BILATERAL PNEUMONIA AND RIGHT SIDED PL EURAL EFFUSION COMPARISON: Chest x-ray 09-14-2019. FINDINGS: TUBES and LINES: Left upper extremity PICC tip terminates in the superior cavoatrial junction. Tracheostomy tube tip projects in the mid intrathoracic trachea. Ventriculoperitoneal shunt catheter traverses the left chest and ent ers the right upper abdomen LUNGS/PLEURA: Persistent bilateral interstitial and airspace opacities, large right and small left pleural effusions. Slightly decreased consolidation in the right midlung. HEART AND MEDIASTINUM: The cardiomediastinal silhouette is enlarged. Mitral valve replacement. BONES AND SOFT TISSUES: No acute osseous lesion. Soft tissues are unremarkable. Sternotomy wires. UPPER ABDOMEN: No free air under the diaphragm. . Ch olecystectomy clips. IMPRESSION: Findings of multifocal aspiration with superimposed pulmonary edema. Large right and small left pleural effusions. Cardiomegaly. Signed by: Dr. Harvey Rizzo MD on 09/15/2019 12:07 PM D ictated By: HARVEY RIZZO MD 1 207 Transcribed By: HORTENCIA on 09/15/19 1207 COPY TO: ALMA WINCHESTER MD Serum or plasma creatine kinase measurement (enzymatic activity/volume) 2019-09-15 05:00:00* Test Item Value Reference Range Interpretation Comments Creatine Kinase (test code = 2157-6) 8 29-168 [facility]vineerum or plasma creatine kinase MB measurement (mass/volume)2019-09-15 05:00:00* Test Item Value Reference Range Interpretation Comments Creatine Kinase MB (test code = 47888-7) 0.90 0-5.0 [facility] CenterTroponin I measurement by highly sensitive enzyme mcxculkvpjc1585-13-37 05:00:00* Test Item Value Reference Range Interpretation Comments Troponin I (test code = 54129-1) 0.003 0-0.300 [facility] CenterCHEST [facility]INGLE ([facility]ABLE)2019-09-14 02:36:00 [place] [address] Patient Name: MICHAELLE ADAM MR #: [id number] : 1960 Age/Sex: 59/F Req #: [id number] Adm Physician: TRIPP KUMAR MD Ordered by: MAHNAZ MELÉNDEZ MD Report #: [id number] Location: ICU Room/Bed: [facility] Procedure: [id number] DX/CHEST SINGLE (POR TABLE) Exam Date: 09/14/19 Exam Time: 0140 REPORT STATUS: Signed EXAMINATION: CHEST SINGLE (PORTABLE) INDICATION: Hemoptysis COMPARISON: Chest x-ray 09/14/2019 1:50 AM FINDINGS: TUBES and LINES: Left uppe r extremity PICC tip terminates in the superior cavoatrial junction. Tracheost traci tube tip projects in the mid intrathoracic trachea. Ventriculoperitoneal s aponte catheter traverses the left chest and enters the right upper abdomen LUNGS/PLEURA: Bilateral airspace disease which was consistent with aspiration on the prior chest CT, and large right and small left pleural effusions. HEART AND MEDIASTINUM: The cardiomediastinal silhouette is enlarged. Mitral valve replacement. BONES AND SOFT TISSUES: No acute osseous lesion. Soft tissues are unremarkable. Sternotomy wires. UPPER ABDOMEN: No free air under the diaphragm. . Cholecystectomy clips. IMPRESSION: Bilatera l airspace disease which was consistent with aspiration on the prior chest CT. Large right and small left pleural effusions. Cardiomegaly. Signed b y: Mario Hatfield DO on 09/14/2019 2:45 AM Dictated By: MARIO HATFIELD DO 4 Transcribed By: HORTENCIA on 09/14/19244 COPY TO: MAHNAZ MELÉNDEZ MD Blood platelets count by estimate (number/volume)2019-09-14 02:30:00* Test Item Value Reference Range Interpretation Comments Platelet Estimate (test code = 92431-0) ADEQUATE [facility] CenterPlatelet kqwfmecann1890-62-65 02:30:00* Test Item Value Reference Range Interpretation Comments Platelet Morphology Comment (test code = 35810-6) NORMAL [facility] CenterBlood hypochromia detection by light ianummlrai3856-06-12 02:30:00* Test Item Value Reference Range Interpretation Comments Hypochromasia (test code = 728-6) MARKED [facility] CenterBlood microcytes detection by light lismtrwlaf0756-52-94 02:30:00* Test Item Value Reference Range Interpretation Comments Microcytosis (test code = 741-9) MODERATE [facility] macrocytes detection by light bswdytrhkz5465-06-14 02:30:00* Test Item Value Reference Range Interpretation Comments Macrocytosis (test code = 738-5) SLIGHT [facility] dacrocytes detection by light ddeoertvvn0996-93-04 02:30:00* Test Item Value Reference Range Interpretation Comments Tear Drop Cells (test code = 7791-7) FEW [facility] CenterRBC bhxiiuwoeh5852-14-21 02:30:00* Test Item Value Reference Range Interpretation Comments Red Cell Morphology Comment (test code = 6742-1) ABNORMAL [facility] total bilirubin measurement (mass/volume)2019-09-14 02:30:00* Test Item Value Reference Range Interpretation Comments Total Bilirubin (test code = 1975-2) 0.5 0.2-1.2 [facility] CenterFluoroscopic procedure less than one hour jzhqtqmv8574-14-60 02:30:00* Test Item Value Reference Range Interpretation Comments Aspartate Amino Transf (AST/SGOT) (test code = Aspartate Amino Transf (AST/SGOT)) 64 5-34 [facility]um or plasma alanine aminotransferase measurement (enzymatic activity/volume)2019-09-14 02:30:00* Test Item Value Reference Range Interpretation Comments Alanine Aminotransferase (ALT/SGPT) (test code = 1742-6) 48 0-55 [facility] or plasma protein measurement (mass/volume)2019-09-14 02:30:00* Test Item Value Reference Range Interpretation Comments Total Protein (test code = 2885-2) 6.3 6.5-8.1 [facility] or plasma albumin measurement (mass/volume)2019-09-14 02:30:00* Test Item Value Reference Range Interpretation Comments Albumin (test code = 1751-7) 2.5 3.5-5.0 [facility] CenterPlasma globulin measurement (mass/volume) 2019-09-14 02:30:00* Test Item Value Reference Range Interpretation Comments Globulin (test code = 71750-7) 3.8 2.3-3.5 [facility] or plasma albumin/globulin mass nooge5003-42-03 02:30:00* Test Item Value Reference Range Interpretation Comments Albumin/Globulin Ratio (test code = 1759-0) 0.7 0.8-2.0 [facility] or plasma alkaline phosphatase measurement (enzymatic activity/volume)2019-09-14 02:30:00* Test Item Value Reference Range Interpretation Comments Alkaline Phosphatase (test code = 6768-6) 97 40-150 [facility] CenterCHEST XRAY LINE [id number] 02:01:00 [place] [address] Patient Name: MICHAELLE ADAM MR #: [id number] : 1960 Age/Sex: 59/F Req #: [id number] Adm Physician: TRIPP KUMAR MD Ordered by: ANA GAN MD Report #: [id number] Location: ICU Room/Bed: [place] [address] Procedure: [id number] DX/CHEST XRAY LI NE PLACEMENT Exam Date: 09/14/19 Exam Time: 0150 REPORT STATUS: Signed EXAMINATION: CHEST XRAY LINE PLACEMENT INDICATION: PICC VERIFICATION CO MPARISON: chest CT and x-ray 09/13/2019 FINDINGS: TUBES and L BRITTNI: Left upper extremity PICC tip terminates in the superior cavoatrial sean ction. Tracheostomy tube tip projects in the mid intrathoracic trachea. Ventri culoperitoneal shunt catheter traverses the left chest and enters the right up per abdomen LUNGS/PLEURA: Bilateral airspace disease which was consistent with aspiration on the prior chest CT, and large right and small left pleural effusions. HEART AND MEDIASTINUM: The cardiomediastinal silhouette is e nlarged. Mitral valve replacement. BONES AND SOFT TISSUES: No acute osse ous lesion. Soft tissues are unremarkable. Sternotomy wires. UPPER ABDOM EN: No free air under the diaphragm. . Cholecystectomy clips. IMPRESSION : Left upper extremity PICC tip terminates in the superior cavoatrial junc tion. Bilateral airspace disease which was consistent with aspiration on t he prior chest CT. Large right and small left pleural effusions. Cardiom egaly. Signed by: Mario Hatfield DO on 09/14/2019 2:04 AM Dictated B y: MARIO HATFIELD DO 0204 COPY TO: SANTHOSH GAN MD CT CHEST [id number] 22:42:00 [place] [address] Patient Name: MICHAELLE ADAM MR #: [id number] : 1960 Age/Sex: 59/F Req #: [id number] Adm Physician: TRIPP KUMAR MD Ordered by: MAHNAZ MELÉNDEZ MD Report #: [id number] Location: ICU Room/Bed: [facility] Procedure: [id number] CT/CT CHEST W Exam Date: 09/13/19 Exam Time: 2100 REPORT STATUS: Signed EXAM: CT Chest WITH contrast (PE protocol) 09/13/2019 9:00 PM INDICATION: Hemoptysis COMPARISON: Chest CT 09/13/2019 TECHNIQUE: Chest was scanned utilizing a multidetector johnson lina scanner from the lung apex through the level of the adrenal glands with ad ministration of IV contrast. Coronal and sagittal reformations were obtained. Routine protocol was performed. IV CONTRAST: 100 mL of Isovue 370 COMPLICATIONS: None RADIATION DOSE: Total DLP: 436 mGy*cm Es timated effective dose: (DLP x 0.014 x size factor) mSv CTDIvol has been reviewed. It is below the limits set by the Radiation Protocol Committee (RPC) . Dose modulation, iterative reconstruction, and/or weight based adjustme nt of the mA/kV was utilized to reduce the radiation dose to as low as reasona mor achievable. FINDINGS: LINES/ TUBES: Tracheostomy tube tip in th e mid intrathoracic trachea. Percutaneous gastrostomy tube tip in the gastric lumen. Ventriculoperitoneal shunt catheter courses along the left anterior fortunato st subcutaneous adipose into the right upper abdomen and enters the right uppe r peritoneal cavity tip out of field of view.. LUNGS AND AIRWAYS: No evid ence of pulmonary embolus. Partial collapse and consolidation of the dependen t upper lobes, right middle lobe, and near complete consolidation and collapse of the lower lobes. Debris in the central airways, and within the upper trach ea above the tracheostomy. Plugging of dependent distal airways. PLEURA: Large right and small left pleural effusions. HEART AND MEDIASTINUM: Th e thyroid gland is normal. There is no pericardial effusion. Severe cardiomegaly. Mitral left coronary artery calcific atherosclerosis. Valve rep lacement. Dilated main pulmonary artery indicative of pulmonary hypertension. UPPER ABDOMEN: Cholecystectomy. BONES: Sternotomy wires. SOFT TISSUES: Unremarkable. IMPRESSION: Findings of bilateral lung aspir ation pneumonia with partial collapse/consolidation dependent aspects of bilat eral upper and right middle lobes, and near-complete consolidation and collaps e of the right lower lobes. Debris in the central airways, and within the uppe r trachea above the tracheostomy. Large right and small left pleural effu sions. Severe cardiomegaly. Left coronary calcifications. Mitral valve replace ment. No evidence of pulmonary embolus. Signed by: Mario ortega DO on 09/13/2019 10:49 PM Dictated By: MARIO HATFIELD DO Electron ically Signed By: MAIRO HATFIELD DO on 09/13/192248 Transcribed By: HORTENCIA on 09/13/192248 COPY TO: MAHNAZ MELÉNDEZ MD Fluoroscopic procedure less than one hour hijnystv6907-38-94 13:58:00* Test Item Value Reference Range Interpretation Comments Coronavirus (PCR) (test code = Coronavirus (PCR)) NOT DETECTED NOTD ETECTED SARS-COV2/RT-PCRNegative results do not preclude SARS-CoV-2 infection and should not be used as the sole basis for patient management decisions. Negative results must be combined with clinical observations, patient history, and epidemiologi lina information. A false negative result may occur if a specimen is improperly c ollected, transported or handled.The limit of detection for this assay is 250 co pies/mLThe SARS-CoV-2 test is a rapid, real-time RT-PCR test intended for the qu alitative detection of nucleic acid from SARS-CoV-2 in nasopharyngeal swab speci men collected from individuals suspected of COVID-19 by their healthcare provide r. This test has not been Food and Drug Administration (FDA) cleared or approved and has been authorized by FDA under an Emergency Use Authorization (EUA). This EUA will be effective until the declaration that circumstances exist justifying the authorization of the emergency use of in vitro diagnostic test for detection and or diagnosis of COVID-19 is terminated under section 564(b) of the Act, or the the EUA is revoked under 564(g) of the ACT.Testing performed by [address] [id number] Medical CenterBacteria identification in sputum by respiratory culture 2019-09-13 11:00:00* Test Item Value Reference Range Interpretation Comments Sputum Culture (test code = 624-7) SERRATIA MARCESCENS [facility]2019-09-13 09:24:00 [place] [address] Patient Name: MICHAELLE ADAM MR #: [id number] : 1960 Age/Sex: 59/F Req #: [id number] Adm Physician: Ordered by: VICENTA GOYAL MD Report #: [id number] Location: ER Room/Bed: Procedure: [id number] DX/CHEST SINGLE (P ORTABLE) Exam Date: 09/13/19 Exam Time: 829 REPORT STATUS: Signed EXAMINATION: FORTUNATO ST SINGLE (PORTABLE) INDICATION: Shortness of breath COMPARISON: N one FINDINGS: LINES/TUBES:Tracheostomy tube terminates in the mid thoracic trachea. TOOL AND DIE ENGINEER shunt partially visualized. LUNGS:Left lung is well- inflated. Right lung volume is low. Patchy opacities at the right upper lobe a nd right lower lobe. PLEURA:Large right pleural effusion. No pneumothorax. MEDIASTINUM:The cardiomediastinal silhouette appears normal in size and sha pe. BONES/SOFT TISSUES:No acute osseous injury. Sternotomy wires in place. ABDOMEN:No free air under the diaphragm. Cholecystectomy. IMPRESSIO N: Large right pleural effusion. Patchy opacities at the right upper and righ t lower lobes may represent atelectasis however superimposed aspiration or p neumonia could also have this appearance in the proper clinical setting. Si gned by: Alessandra Bajwa MD on 09/13/2019 9:26 AM Dictated By: ALESSANDRA BAJWA MD 5 Transcribed By: ANA Cochran on 09/13/19925 COPY TO: VICENTA GOYAL MD Fluoroscopic procedure less than one hour zdnldqmc2084-39-55 09:00:00* Test Item Value Reference Range Interpretation Comments Differential Total Cells Counted (test code = Differen tial Total Cells Counted) 100 [facility] CenterManual blood neutrophils/100 leukocytes 2019-09-13 09:00:00* Test Item Value Reference Range Interpretation Comments Neutrophils % (Manual) (test code = 53653-9) 60 40-74 [facility] CenterManual blood band neutrophils form/100 czxwcybtbg8307-26-28 09:00:00* Test Item Value Reference Range Interpretation Comments Band Neutrophils % (test code = 764-1) 3 [facility] blood lymphocytes/100 leukocytes 2019-09-13 09:00:00* Test Item Value Reference Range Interpretation Comments Lymphocytes % (Manual) (test code = 737-7) 20 19-48 [facility] monocytes/100 leukocytes 2019-09-13 09:00:00* Test Item Value Reference Range Interpretation Comments Monocytes % (Manual) (test code = 744-3) 17 3.4-9.0 [facility] CenterProthrombin time (PT) in platelet poor plasma by coagulation cbpfr0763-32-66 09:00:00* Test Item Value Reference Range Interpretation Comments Prothrombin Time (test code = 5902-2) 12.1 11.9-14.5 [facility] CenterINR in Platelet poor plasma by Coagulation gxtlj8928-82-00 09:00:00* Test Item Value Reference Range Interpretation Comments Prothromb Time International Ratio (test code = 6301-6) 0.85 Oral Anticoagulant Therapy INR Values:1. Low Intensity Therapy 1.5 - 2.02 . Moderate Intensity Therapy 2.0 - 3.03. High Intensity Therapy(1) 2.5 - 3. 54. High Intensity Therapy(2) 3.0 - 4.05. Panic Value INR > 5.0 [facility] CenterActivated partial thromboplastin time (aPTT) in platelet poor plasma by coagulation pbwfr9513-10-81 09:00:00* Test Item Value Reference Range Interpretation Comments Activated Partial Thromboplast Time (test code = 86284-7) 31.5 23.8-35.5 [facility] CenterBlood cobalamin (vitamin B12) measurement (mass/volume)2019-09-13 09:00:00* Test Item Value Reference Range Interpretation Comments Vitamin B12 Level (test code = 25828-3) > 2000 213-816 [facility] CenterFree thyroxine bwnwt1388-62-64 09:00:00* Test Item Value Reference Range Interpretation Comments Free Thyroxine Index (test code = 29098-8) 2.8174 1.4-3.8 [facility]um or plasma thyroxine (T4) measurement (mass/volume)2019-09-13 09:00:00* Test Item Value Reference Range Interpretation Comments Thyroxine (T4) (test code = 3026-2) 12.45 4.5-10.9 Our current method for Total T4 is not recommended for use as the only marker fo r evaluating patients for thyroid disorders.[facility]vineerum or plasma triiodothyronine resin uptake (T3RU)2019-09-13 09:00:00* Test Item Value Reference Range Interpretation Comments Triiodothyronine (T3) Uptake (test code = 3050-2) 22.63 22.5 -37.0 [facility]vine[facility]um or plasma thyrotropin measurement by detection limit <= 0.005 miu/l (units/volume)2019-09-13 09:00:00* Test Item Value Reference Range Interpretation Comments Thyroid Stimulating Hormone (TSH) (test code = 90687-4) 6.438 0.350-4.940 [facility]vine[facility]um or plasma folate measurement (mass/volume)2019-09-13 09:00:00* Test Item Value Reference Range Interpretation Comments Folate (test code = 2284-8) >20.0 >3.0 A serum folate concentration of less than 3.1 ng/mL isconsidered to represent cl inical deficiency.Performed at: - [facility] [id number] Director: Dinesh Granado MD, Phone: [phone] Regional Medical CenterBlood daachxo3102-99-56 09:00:00* Test Item Value Reference Range Interpretation Comments Blood Culture (test code = 86166466) NO GROWTH AFTER 72 HOURS [facility]- XR FEMUR MIN 2 VW [id number] 18:26:00 Patient Name: MICHAELLE ADAM Unit No: [id number] EXAMS : CPT: [id number] XR FEMU R MIN [address] [place] [address] RADIOGRAPHS: Right femur, 2 view COMPARISON: None available CLINICAL HISTORY: FALL . FINDINGS: No acute fracture is seen. No bony destructive lesions seen. IMPRESSION: No acute disease. at 1826 Reported and signed by: Navid Smith MD CC: Lori Tijerina; Xavi Garrison DO T echnologist: Kallie Vo Time : DAP (Gy m2): Air Kerma (mGy): Trscr Dt/Tm: 06/19/2019 (1825) by:Juno Orig Print D/T: S: 06/19/2019 (1829 ) BATCH NO: N/A Name: MICHAELLE ADAM [facility] Phy s: Lori De La Paz [address] : 12/1959 Age: 59 Sex: [place] [id number] Loc: N.ERS Exam Date: 06/19/2019 Status: PRE ER PH: FAX: PAGE 1 Signed Report [id number] 06:37:00* Test Item Value Reference Range Interpretation Comments GLUBED (test code = GLUBED) 181 MG/DL 70-105 H BASIC METABOLIC [id number] 04:20:00* Test Item Value Reference Range Interpretation [...] CA) 8.3 mg/dL 8.5-10.5 L CBC W/AUTO [id number] 04:12:00* Test Item Value Reference Range Interpretation [...] = BA#) 0.0 x10 3/uL 0.0-0.1 N [id number] 00:40:00* Test Item Value Reference Range Interpretation Comments GLUBED (test code = GLUBED) 128 MG/DL 70-105 H [id number] 23:06:00* Test Item Value Reference Range Interpretation Comments GLUBED (test code = GLUBED) 49 MG/DL 70-105 LL [id number] 15:32:00* Test Item Value Reference Range Interpretation Comments GLUBED (test code = GLUBED) 287 MG/DL 70-105 H - XR CHEST 1 [id number] 13:29:00Patient Name: MICHAELLE ADAM Unit No: [id number] EXAMS: CPT: [id number] XR CHEST 1 V 99190 Comparison study: 06/03/2019 History: AFIB RVR CHEST [...] (1329) by:[email or web address] Orig Print D/T: S: 06/05/2019 (1333) BATCH NO: N/A Name: MICHAELLE ADAM [facility] Phys: Reyes Dobbs MD [address] : 1960 Age: 59 Sex: F [place], [place] [address] Loc: N.0357 1 Exam Date: 06/05/2019 Status: ADM IN PH: FAX: PAGE 1 Signed Report - PULM VENT PERF [id number] 13:27:00Patient Name: MICHAELLE ADAM Unit No: [id number] EXAMS: CPT: [id number] PULM VENT PERF IMAG 53274 PULMONARY VENTILATION AND PERFUSION SCAN: HISTORY: Shortness [...] CC: Sera Escobar MD Technologist: Jh Lopez Trs Dt/Tm: 06/05/2019 (5807) by:[email or web address] Orig Print D/T: S: 06/05/2019 (0362) BATCH NO: N/A Name: MICHAELLE ADAM [facility] Phys: [id number] - Sera Escobar [address] : 1960 Age: 59 Sex: F [place], [place] [address] Loc: N.0357 1 Exam Date: 06/05/2019 Status: ADM IN PH: FAX: PAGE 1 Signed Report [id number] 11:05:00* Test Item Value Reference Range Interpretation Comments GLUBED (test code = GLUBED) 292 MG/DL 70-105 H [id number] 06:30:00* Test Item Value Reference Range Interpretation Comments GLUBED (test code = GLUBED) 71 MG/DL 70-105 N BASIC METABOLIC [id number] 05:05:00* Test Item Value Reference Range Interpretation Comments SODIUM (test code = NA) 135 mmol/L 135-145 N POTASSIUM (test code = K) 2.6 mmol/L 3.6-5.0 LL Cr itical Value reported toFirst Name:DINORAH Roberts Name:KRISTINE READ BACK AND VERIFIEDby N.LAB.[facility], on 06/05/19, @ 0505. CHLORIDE (test code = CL) 107 mmol/L [...] CA) 8.0 mg/dL 8.5-10.5 L CBC W/AUTO [id number] 05:02:00* Test Item Value Reference Range Interpretation [...] = BA#) 0.0 x10 3/uL 0.0-0.1 N [id number] 01:51:00* Test Item Value Reference Range Interpretation Comments GLUBED (test code = GLUBED) 297 MG/DL 70-105 H [id number] 20:31:00* Test Item Value Reference Range Interpretation Comments GLUBED (test code = GLUBED) 281 MG/DL 70-105 H [id number] 18:49:00* Test Item Value Reference Range Interpretation Comments GLUBED (test code = GLUBED) 239 MG/DL 70-105 H [id number] 15:27:00* Test Item Value Reference Range Interpretation Comments GLUBED (test code = GLUBED) 170 MG/DL 70-105 H [id number] 11:04:00* Test Item Value Reference Range Interpretation Comments GLUBED (test code = GLUBED) 168 MG/DL 70-105 H HGBA1C - GLYCOSYLATED [id number] 09:46:00* Test Item Value Reference Range Interpretation Comments GLYCOSYLATED HEMOGLOBIN (HA1C) (test code = GLYHGB) 15.2 % 4. 0-6.0 H Interpretive Data: Caution should be exercised when interpreting the HgbA1c in patients with hemolytic anemia, iron deficiency and when the total hemoglobin is < 9g/dL, due to a decrease in average age of red blood cells [id number] 06:24:00* Test Item Value Reference Range Interpretation Comments GLUBED (test code = GLUBED) 340 MG/DL 70-105 HH COMPREHENSIVE METABOLIC [id number] 04:57:00* Test Item Value Reference Range Interpretation [...] code = ALKP) 93 U/L 42-121 N [id number] 02:20:00* Test Item Value Reference Range Interpretation Comments GLUBED (test code = GLUBED) 392 MG/DL 70-105 HH T4 [id number] 01:05:00* Test Item Value Reference Range Interpretation Comments T4 FREE (test code = T4F) 0.99 ng/dL 0.61-1.12 N THYROID REFLEX TO [id number] 01:05:00* Test Item Value Reference Range Interpretation Comments THYROID REFLEX TO FT4 (test code = TSHREFLEX) 6.913 uIU/ml 0.450-5. 330 H T4 [id number] 00:29:00* Test Item Value Reference Range Interpretation Comments T4 FREE (test code = T4F) ng/dL 0.61-1.12 THYROID REFLEX TO [id number] 00:29:00* Test Item Value Reference Range Interpretation Comments THYROID REFLEX TO FT4 (test code = TSHREFLEX) 6.913 uIU/ml 0.450-5. 330 H - CT ANGIO [id number] 22:56:00Patient Name: MICHAELLE ADAM Unit No: [id number] EXAMS: CPT: [id number] CT ANGIO [place]EC[place] [address] CT ANGIOGRAPHY OF THE HEAD HISTORY: dizzy. COMPARISON:None. TECHNIQUE: Bolus tracking series followed by contrast-enhanced CT angiography of the head. Data set analyzed on a 3-D workstation with 3D image post processing. Noncontrast CT images also obtained. FINDINGS: The anterior, middle, and posterior cerebral arteries are patent. type left SACK FILLER compatible with normal variant. Vertebrobasilar system is [...] intimal flap in the Name: MICHAELLE ADAM [facility] [place] Phys: [email or web address].[id number] - Xavi Garrison [address] : 1960 Age: 59 Sex: [place] [address] Loc: N.ERS Exam Date: 06/03/2019 Status: REG ER PH: FAX: PAGE 1 Signed Report (CONTINUED) Patient Na me: MICHAELLE ADAM Unit No: [id number] EXAMS: CPT: [id number] CT ANGIO NECK [address] <Continued> carotid bulb and small calcified plaques [...] with ACR practice guidelines and adherence to slat basket top maker's re commendations which include automated exposure control, adjustment of th e mA and/or kV according to patient size and/or use of iterative reconst ruction technique. Electronically Sign ed by Deena Gomes MD on 06/03/2019 at 2256 Reported an d signed by: Deena Gomes MD CC: Xavi Garrison DO Technologist: Luc House CTDI: 48.02 DLP: 2167.55Trscr Dt/Tm: 06/03/2019 (2256) by:Rosalie [email or web address] Orig Print D/T: S: 06/03/2019 (4818) BATCH NO: N/A Name: Javid ADAM [facility] ED Phys: [email or web address].[id number] - Xavi Garrison [address] : 1960 Age: 59 Sex: [place] [address] Loc: N. ERS Exam Date: 06/03/2019 Status: REG E R PH: FAX: PAGE 2 Signed Repo rt - CT ANGIO [id number] 22:56:00Patient Name: MICHAELLE ADAM Unit No: [id number] EXAMS: CPT: [id number] CT ANGIO HEAD [address] CT ANGIOGRAPHY OF THE HEAD HISTORY: dizzy. COMPARISON:None. TECHNIQUE: Bolus tracking series followed by contrast-enhanced CT kelly ography of the head. Data set analyzed on a 3-D workstation with 3D image post processing. Noncontrast CT images also obtained. FINDINGS: The anterior, middle, and posterior cerebral arteries are patent. Fe emily type left SACK FILLER compatible with normal variant. Vertebrobasilar system is [...] intimal flap in the Name: MICHAELLE ADAM [facility] [place] Phys: CHRIS. - BladimirNic jonessanjay Lam [address] : 1960 Age: 59 Sex: [place] [address] Loc: N.ERS Exam Date: 06/03/2019 Status: REG ER PH: FAX: PAGE 1 Signed Report (CONTINUED) Patient Na me: MICHAELLE ADAM Unit No: [id number] EXAMS: CPT: [id number] CT ANGIO HEAD [address] <Continued> carotid bulb and small calcified plaques [...] with ACR practice guidelines and adherence to slat basket top maker's re commendations which include automated exposure control, adjustment of th e mA and/or kV according to patient size and/or use of iterative reconst ruction technique. Electronically Sign ed by Deena Gomes MD on 06/03/2019 at 2256 Reported an d signed by: Deena Gomes MD CC: Xavi Garrison DO Technologist: Luc House CTDI: DLP: Trscr Dt/Tm: 06/03/2019 (2998) by:Rosalie [email or web address] Orig Print D/T: S: 06/03/2019 (8544) BATCH NO: N/A Name: Javid ADAM [facility] ED Phys: [id number] - Xavi Garrison [address] : 1960 Age: 59 Sex: [place] [address] Loc: N. ERS Exam Date: 06/03/2019 Status: REG E R PH: FAX: PAGE 2 Signed Repo rt [id number] 21:15:00* Test Item Value Reference Range Interpretation Comments GLUBED (test code = GLUBED) > 600 MG/DL 70-105 HH BASIC METABOLIC [id number] 21:01:00* Test Item Value Reference Range Interpretation [...] CA) 10.5 mg/dL 8.5-10.5 N LIVER FUNCTION [id number] 21:01:00* Test Item Value Reference Range Interpretation [...] code = ALKP) 144 U/L 42-121 H [id number] 20:52:00* Test Item Value Reference Range Interpretation Comments TROPONIN-I (test code = TROPI) <0.020 ng/mL 0.000-0.034 N PROTHROMBIN [id number] 20:46:00* Test Item Value Reference Range Interpretation [...] - 4.5 recurrent systemic embolism. THROMBOPLASTIN TIME [id number] 20:46:00* Test Item Value Reference Range Interpretation Comments THROMBOPLASTIN TIME PARTIAL (test code = PTT) 28 SECONDS 25-37 N PROTHROMBIN [id number] 20:40:00* Test Item Value Reference Range Interpretation [...] - 4.5 recurrent systemic embolism. THROMBOPLASTIN TIME [id number] 20:40:00* Test Item Value Reference Range Interpretation Comments THROMBOPLASTIN TIME PARTIAL (test code = PTT) SECONDS 25-37 CBC W/AUTO [id number] 20:34:00* Test Item Value Reference Range Interpretation [...] 3/uL 0.0-0.1 N - XR CHEST 1 [id number] 20:30:00Patient Name: MICHAELLE ADAM Unit No: [id number] EXAMS: CPT: [id number] XR CHEST 1 V 57711 CHEST 1 VIEW HISTORY: Chest Pain COMPARISON: None. FINDINGS: Cardiac silhouette is enlarged with median sternotomy wires in probably cardiac valve prosthesis noted. No pulmonary vascular congestion seen. No consolidation or large pleural effusion. No pneumothorax. IMPRESSION: No acute chest findings. at 2029 Reported and signed by: Deena Gomes MD CC: Technologist: Kike Vo Time: DAP (Gy m2): Air Kerma (mGy): Trscr Dt/Tm: 06/03/2019 (2029) by:[email or web address] Orig Print D/T: S: 06/03/2019 (2032) BATCH NO: N/A Name: MICHAELLE ADAM [facility] Phys: KAYE.Anna - Govind Nagel [place] [address] : 1960 Age: 59 Sex: [place] [address] Loc: N.ERS Exam Date: 06/03/2019 Status: PRE ER PH: FAX: PAGE 1 Signed Report - CT HEAD/BRAIN W/O [id number] 15:11:00Patient Name: MICHAELLE ADAM Unit No: [id number] EXAMS: CPT: [id number] CT HEAD/BRAIN W/O CONT [address]274 CT HEAD WITHOUT CONTRAST History: Headache COMPARISON:None [...] JACINTO [place] CTDI: 30.9 5 DLP: 440.68 Trscr Dt/Tm: 04/08/2019 (151) by:[email or web address] Orig Print D/T: S: 04/08/2019 (151) BATCH NO: N/A Name: KIAMICHAELLE [facility] Phys: Juliana Flaherty MD [address] : 1960 Age: 59 Sex: [place] [address] Loc: N.ERS Exam Date: 04/08/2019 Status: PRE ER PH: FAX: PAGE 1 Signed Report BLOOD [id number] 06:00:00* Test Item Value Reference Range Interpretation Comments CULTURE (BEAKER) (test code = 1095) No growth in 5 days BLOOD [id number] 06:00:00* Test Item Value Reference Range Interpretation Comments CULTURE (BEAKER) (test code = 1095) No growth in 5 days POCT-GLUCOSE [id number] 05:39:00* Test Item Value Reference Range Interpretation Comments POC-GLUCOSE METER (BEAKER) (test code = 1538) 148 mg/dL 70-110 H TESTED AT [address] [address] POCT-GLUCOSE [id number] 05:28:00* Test Item Value Reference Range Interpretation Comments POC-GLUCOSE METER (BEAKER) (test code = 1538) 123 mg/dL 70-110 H TESTED AT [address] [address] POCT-GLUCOSE [id number] 05:04:00* Test Item Value Reference Range Interpretation Comments POC-GLUCOSE METER (BEAKER) (test code = 1538) 149 mg/dL 70-110 H TESTED AT [address] [address] POCT-GLUCOSE [id number] 05:02:00* Test Item Value Reference Range Interpretation Comments POC-GLUCOSE METER (BEAKER) (test code = 1538) 108 mg/dL 70-110 TESTED AT [facility] [address] [facility] [address] POCT-GLUCOSE [id number] 05:02:00* Test Item Value Reference Range Interpretation Comments POC-GLUCOSE METER (BEAKER) (test code = 1538) 140 mg/dL 70-110 H TESTED AT [facility] [address] [facility] [address] POCT-GLUCOSE [id number] 04:58:00* Test Item Value Reference Range Interpretation Comments POC-GLUCOSE METER (BEAKER) (test code = 1538) 186 mg/dL 70-110 H TESTED AT [place] [id number] [facility] [address] BASIC METABOLIC [id number] 15:14:00* Test Item Value Reference Range Interpretation [...] NOT APPLICABLE FOR DIALYSIS PATIENTS. VANCOMYCIN LEVEL, [id number] 05:09:00* Test Item Value Reference Range Interpretation Comments VANCOMYCIN TROUGH (BEAKER) (test code = 522) 7.8 ug/mL 10.0-20.0 L CBC W/PLT COUNT & AUTO [id number] 01:43:00* Test Item Value Reference Range Interpretation [...] 0. 00-0.20 CBC W/PLT COUNT & AUTO [id number] 05:51:00* Test Item Value Reference Range Interpretation [...] = 417) 0.01 K/ L 0. 00-0.20 [id number] 05:51:00* Test Item Value Reference Range Interpretation Comments MAGNESIUM (BEAKER) (test code = 627) 2.3 mg/dL 1.6-2.6 BASIC METABOLIC [id number] 05:51:00* Test Item Value Reference Range Interpretation [...] IS NOT APPLICABLE FOR DIALYSIS PATIENTS. POCT-GLUCOSE [id number] 20:50:00* Test Item Value Reference Range Interpretation Comments POC-GLUCOSE METER (BEAKER) (test code = 1538) 124 mg/dL 70-110 H TESTED AT [address] [address] POCT-GLUCOSE [id number] 17:58:00* Test Item Value Reference Range Interpretation Comments POC-GLUCOSE METER (BEAKER) (test code = 1538) 141 mg/dL 70-110 H TESTED AT [address] [address] URINALYSIS W/ [id number] 17:32:00* Test Item Value Reference Range Interpretation [...] 2795) Urine, Voided LACTIC ACID, VENOUS, WHOLE [id number] 13:25:00* Test Item Value Reference Range Interpretation Comments LACTATE BLOOD VENOUS (2) (BEAKER) (test code = 2872) 2.2 mmol/L 0 .5-2.2 Effective 08/19/2015: Units/Reference Range ChangeNew: 0.5-2.2 mmol/L Previous: 5 -20 mg/dLPOCT-GLUCOSE [id number] 12:23:00* Test Item Value Reference Range Interpretation Comments POC-GLUCOSE METER (BEAKER) (test code = 1538) 166 mg/dL 70-110 H TESTED AT [facility] [address] [facility] [address] POCT-GLUCOSE [id number] 08:05:00* Test Item Value Reference Range Interpretation Comments POC-GLUCOSE METER (BEAKER) (test code = 1538) 149 mg/dL 70-110 H TESTED AT [place] [address] [facility] [address] CBC (HEMOGRAM ONLY)2016-09-23 05:57:00* Test Item Value [...] = 413) 0 /100 WBC 0 -0 [id number] 05:32:00* Test Item Value Reference Range Interpretation Comments MAGNESIUM (BEAKER) (test code = 627) 2.2 mg/dL 1.6-2.6 BASIC METABOLIC [id number] 05:32:00* Test Item Value Reference Range Interpretation [...] IS NOT APPLICABLE FOR DIALYSIS PATIENTS. POCT-GLUCOSE [id number] 21:29:00* Test Item Value Reference Range Interpretation Comments POC-GLUCOSE METER (BEAKER) (test code = 1538) 177 mg/dL 70-110 H TESTED AT [facility] [address] [facility] [address] POCT-GLUCOSE [id number] 18:29:00* Test Item Value Reference Range Interpretation Comments POC-GLUCOSE METER (BEAKER) (test code = 1538) 181 mg/dL 70-110 H TESTED AT [address] [address] POCT-GLUCOSE [id number] 12:20:00* Test Item Value Reference Range Interpretation Comments POC-GLUCOSE METER (BEAKER) (test code = 1538) 176 mg/dL 70-110 H TESTED AT [address] [address] HEMOGLOBIN [id number] 10:30:00* Test Item Value Reference Range Interpretation Comments HEMOGLOBIN A1C (BEAKER) (test code = 368) 7.1 % 4.3-6.1 H POCT-GLUCOSE [id number] 08:06:00* Test Item Value Reference Range Interpretation Comments POC-GLUCOSE METER (BEAKER) (test code = 1538) 145 mg/dL 70-110 H TESTED AT [address] [address] TSH/FREE T4 IF [id number] 07:41:00* Test Item Value Reference Range Interpretation [...] = 413) 0 /100 WBC 0 -0 [id number] 06:44:00* Test Item Value Reference Range Interpretation Comments PHOSPHORUS (BEAKER) (test code = 604) 2.6 mg/dL 2.3-4.7 [id number] 06:44:00* Test Item Value Reference Range Interpretation Comments MAGNESIUM (BEAKER) (test code = 627) 1.9 mg/dL 1.6-2.6 BASIC METABOLIC [id number] 06:44:00* Test Item Value Reference Range Interpretation [...] IS NOT APPLICABLE FOR DIALYSIS PATIENTS. LIPID [id number] 06:44:00* Test Item Value Reference Range Interpretation [...] High 160-189 Very High >=190 HEPATIC FUNCTION [id number] 06:44:00* Test Item Value Reference Range Interpretation [...] code = 347) 19 U/L 6-55 POCT-GLUCOSE [id number] 21:51:00* Test Item Value Reference Range Interpretation Comments POC-GLUCOSE METER (BEAKER) (test code = 1538) 165 mg/dL 70-110 H TESTED AT [address] [address] POCT-GLUCOSE [id number] 16:59:00* Test Item Value Reference Range Interpretation Comments POC-GLUCOSE METER (BEAKER) (test code = 1538) 156 mg/dL 70-110 H TESTED AT [address] [address] POCT-GLUCOSE [id number] 12:25:00* Test Item Value Reference Range Interpretation Comments POC-GLUCOSE METER (BEAKER) (test code = 1538) 169 mg/dL 70-110 H TESTED AT [address] [address] POCT-GLUCOSE [id number] 07:50:00* Test Item Value Reference Range Interpretation Comments POC-GLUCOSE METER (BEAKER) (test code = 1538) 145 mg/dL 70-110 H TESTED AT [address] [address] POCT-GLUCOSE [id number] 06:23:00* Test Item Value Reference Range Interpretation Comments POC-GLUCOSE METER (BEAKER) (test code = 1538) 125 mg/dL 70-110 H TESTED AT [address] [address] POCT-GLUCOSE [id number] 04:41:00* Test Item Value Reference Range Interpretation Comments POC-GLUCOSE METER (BEAKER) (test code = 1538) 116 mg/dL 70-110 H TESTED AT [address] [address] POCT-GLUCOSE [id number] 03:44:00* Test Item Value Reference Range Interpretation Comments POC-GLUCOSE METER (BEAKER) (test code = 1538) 119 mg/dL 70-110 H TESTED AT [address] [address] POCT-GLUCOSE [id number] 03:44:00* Test Item Value Reference Range Interpretation Comments POC-GLUCOSE METER (BEAKER) (test code = 1538) 123 mg/dL 70-110 H TESTED AT [address] [address] POCT-GLUCOSE [id number] 03:44:00* Test Item Value Reference Range Interpretation Comments POC-GLUCOSE METER (BEAKER) (test code = 1538) 175 mg/dL 70-110 H TESTED AT [address] [address] BASIC METABOLIC [id number] 03:16:00* Test Item Value Reference Range Interpretation [...] GFR IS NOT APPLICABLE FOR DIALYSIS PATIENTS. [id number] 03:00:00* Test Item Value Reference Range Interpretation Comments MAGNESIUM (BEAKER) (test code = 627) 2.4 mg/dL 1.6-2.6 Specimen slightly hemolyzed [id number] 03:00:00* Test Item Value Reference Range Interpretation [...] 413) 0 /100 WBC 0 -0 0.00POCT-GLUCOSE [id number] 00:28:00* Test Item Value Reference Range Interpretation Comments POC-GLUCOSE METER (BEAKER) (test code = 1538) 156 mg/dL 70-110 H TESTED AT [address] [address] POCT-GLUCOSE [id number] 23:29:00* Test Item Value Reference Range Interpretation Comments POC-GLUCOSE METER (BEAKER) (test code = 1538) 184 mg/dL 70-110 H TESTED AT [address] [address] POCT-GLUCOSE [id number] 21:54:00* Test Item Value Reference Range Interpretation Comments POC-GLUCOSE METER (BEAKER) (test code = 1538) 138 mg/dL 70-110 H TESTED AT [address] [address] POCT-GLUCOSE [id number] 21:00:00* Test Item Value Reference Range Interpretation Comments POC-GLUCOSE METER (BEAKER) (test code = 1538) 158 mg/dL 70-110 H TESTED AT [address] [address] POCT-GLUCOSE [id number] 21:00:00* Test Item Value Reference Range Interpretation Comments POC-GLUCOSE METER (BEAKER) (test code = 1538) 172 mg/dL 70-110 H TESTED AT [address] [address] POCT-GLUCOSE [id number] 21:00:00* Test Item Value Reference Range Interpretation Comments POC-GLUCOSE METER (BEAKER) (test code = 1538) 96 mg/dL 70-110 TESTED AT [address] [address] POCT-GLUCOSE [id number] 21:00:00* Test Item Value Reference Range Interpretation Comments POC-GLUCOSE METER (BEAKER) (test code = 1538) 126 mg/dL 70-110 H TESTED AT [address] [address] POCT-GLUCOSE [id number] 17:34:00* Test Item Value Reference Range Interpretation Comments POC-GLUCOSE METER (BEAKER) (test code = 1538) 106 mg/dL 70-110 TESTED AT [address] [address] POCT-GLUCOSE [id number] 15:52:00* Test Item Value Reference Range Interpretation Comments POC-GLUCOSE METER (BEAKER) (test code = 1538) 157 mg/dL 70-110 H TESTED AT [facility] [address] [facility] [address] POCT-GLUCOSE [id number] 15:52:00* Test Item Value Reference Range Interpretation Comments POC-GLUCOSE METER (BEAKER) (test code = 1538) 122 mg/dL 70-110 H TESTED AT [place] [address] [facility] [address] POCT-GLUCOSE [id number] 15:52:00* Test Item Value Reference Range Interpretation Comments POC-GLUCOSE METER (BEAKER) (test code = 1538) 144 mg/dL 70-110 H TESTED AT [address] [address] BLOOD GAS, [id number] 14:42:00* Test Item Value Reference Range Interpretation [...] (BEAKER) (test code = 1819) 40.0 % [id number] 11:41:00* Test Item Value Reference Range Interpretation Comments MAGNESIUM (BEAKER) (test code = 627) 3.4 mg/dL 1.6-2.6 H Specimen slightly hemolyzed [id number] 11:41:00* Test Item Value Reference Range Interpretation Comments PHOSPHORUS (BEAKER) (test code = 604) 3.3 mg/dL 2.3-4.7 Specimen slightly hemolyzed [id number] 11:41:00* Test Item Value Reference Range Interpretation Comments POTASSIUM (BEAKER) (test code = 379) 3.9 meq/L 3.5-5.1 Specimen slightly hemolyzed [id number] 11:41:00* Test Item Value Reference Range Interpretation Comments SODIUM (BEAKER) (test code = 381) 143 meq/L 136-145 [id number] 11:41:00* Test Item Value Reference Range Interpretation Comments GLUCOSE RANDOM (BEAKER) (test code = 652) 161 mg/dL 70-105 H Effective 03/04/2014: Reference Range Change-Adult onlyNew: 70-105 Previous: 70-110LACTIC ACID, ARTERIAL, WHOLE [id number] 11:28:00* Test Item Value Reference Range Interpretation Comments LACTATE BLOOD ARTERIAL (2) (BEAKER) (test code = 2874) 1.4 mmol/L 0.5-2.2 Specimen slightly hemolyzed Effective 08/19/2015: Units/Reference Range ChangeNew: 0.5-2.2 mmol/L Previous: 5 -20 mg/dLCBC W/PLT COUNT & AUTO [id number] 11:28:00* Test Item Value Reference Range Interpretation [...] 0.06 K/ L 0. 00-0.20 0.00BLOOD GAS, [id number] 11:06:00* Test Item Value Reference Range Interpretation [...] code = 1819) 100.0 % OXYGEN SATURATION, [id number] 11:06:00* Test Item Value Reference Range Interpretation Comments O2 SATURATION (MEASURED) (BEAKER) (test code = 1455) 60.8 % From distal port of IJ central venous [id number] 10:23:00* Test Item Value Reference Range Interpretation Comments ACTIVATED CLOTTING TIME (BEAKER) (test code = 441) 131 sec TESTED AT [place] [address] [id number] 10:23:00* Test Item Value Reference Range Interpretation Comments ACTIVATED CLOTTING TIME (BEAKER) (test code = 441) 703 sec TESTED AT [place] [address] [id number] 10:23:00* Test Item Value Reference Range Interpretation Comments ACTIVATED CLOTTING TIME (BEAKER) (test code = 441) > sec OUTSIDE MEASURING RANGETESTED AT [place] [address] [id number] 10:23:00* Test Item Value Reference Range Interpretation Comments ACTIVATED CLOTTING TIME (BEAKER) (test code = 441) 580 sec TESTED AT [place] [address] [id number] 10:23:00* Test Item Value Reference Range Interpretation Comments ACTIVATED CLOTTING TIME (BEAKER) (test code = 441) 137 sec TESTED AT [place] [address] [id number] 10:03:00* Test Item Value Reference Range Interpretation Comments FIBRINOGEN LEVEL (BEAKER) (test code = 658) 200 mg/dl 225-434 L [id number] 09:49:00* Test Item Value Reference Range Interpretation Comments PARTIAL THROMBOPLASTIN TIME (BEAKER) (test code = 760) 34.8 seconds 22.5-36.0 PROTHROMBIN [id number] 09:48:00* Test Item Value Reference Range Interpretation [...] pat ients with mechanical heart valves.PLATELET COUNT-STAT [id number] 09:48:00* Test Item Value Reference Range Interpretation Comments PLATELET COUNT (BEAKER) (test code = 756) 97 K/CU MM 150-430 L BLOOD GAS, [id number] 09:26:00* Test Item Value Reference Range Interpretation [...] (test code = 1819) 97.0 % GLUCOSE-STAT [id number] 09:26:00* Test Item Value Reference Range Interpretation Comments GLUCOSE RANDOM (BEAKER) (test code = 652) 176 mg/dL 70-110 H HGB/HCT (H&H) - STAT [id number] 09:26:00* Test Item Value Reference Range Interpretation Comments HEMOGLOBIN (BEAKER) (test code = 410) 8.4 g/dL 12.0-15.0 L HEMATOCRIT (BEAKER) (test code = 411) 25.0 % 36.0-45.0 L CALCIUM, [id number] 09:26:00* Test Item Value Reference Range Interpretation Comments CALCIUM IONIZED (BEAKER) (test code = 698) 1.00 mmol/L 1.12-1.27 L PH, BLOOD (BEAKER) (test code = 1810) 7.47 SODIUM NA-STAT [id number] 09:25:00* Test Item Value Reference Range Interpretation Comments SODIUM (BEAKER) (test code = 381) 137 meq/L 135-148 POTASSIUM-STAT [id number] 09:25:00* Test Item Value Reference Range Interpretation Comments POTASSIUM (BEAKER) (test code = 379) 4.1 meq/L 3.6-5.5 SODIUM NA-STAT [id number] 08:59:00* Test Item Value Reference Range Interpretation Comments SODIUM (BEAKER) (test code = 381) 136 meq/L 135-148 POTASSIUM-STAT [id number] 08:59:00* Test Item Value Reference Range Interpretation Comments POTASSIUM (BEAKER) (test code = 379) 4.3 meq/L 3.6-5.5 BLOOD GAS, [id number] 08:59:00* Test Item Value Reference Range Interpretation [...] (test code = 1819) 70.0 % GLUCOSE-STAT [id number] 08:59:00* Test Item Value Reference Range Interpretation Comments GLUCOSE RANDOM (BEAKER) (test code = 652) 152 mg/dL 70-110 H HGB/HCT (H&H) - STAT [id number] 08:59:00* Test Item Value Reference Range Interpretation Comments HEMOGLOBIN (BEAKER) (test code = 410) 7.9 g/dL 12.0-15.0 L HEMATOCRIT (BEAKER) (test code = 411) 23.0 % 36.0-45.0 L BLOOD GAS, [id number] 08:39:00* Test Item Value Reference Range Interpretation [...] code = 1819) 70.0 % SODIUM NA-STAT [id number] 08:39:00* Test Item Value Reference Range Interpretation Comments SODIUM (BEAKER) (test code = 381) 132 meq/L 135-148 L GLUCOSE-STAT [id number] 08:39:00* Test Item Value Reference Range Interpretation Comments GLUCOSE RANDOM (BEAKER) (test code = 652) 127 mg/dL 70-110 H HGB/HCT (H&H) - STAT [id number] 08:39:00* Test Item Value Reference Range Interpretation Comments HEMOGLOBIN (BEAKER) (test code = 410) 7.2 g/dL 12.0-15.0 L HEMATOCRIT (BEAKER) (test code = 411) 21.0 % 36.0-45.0 L POTASSIUM-STAT [id number] 08:37:00* Test Item Value Reference Range Interpretation Comments POTASSIUM (BEAKER) (test code = 379) 4.4 meq/L 3.6-5.5 BLOOD GAS, [id number] 08:04:00* Test Item Value Reference Range Interpretation [...] (test code = 1819) 50.0 % GLUCOSE-STAT [id number] 08:04:00* Test Item Value Reference Range Interpretation Comments GLUCOSE RANDOM (BEAKER) (test code = 652) 155 mg/dL 70-110 H SODIUM NA-STAT [id number] 08:03:00* Test Item Value Reference Range Interpretation Comments SODIUM (BEAKER) (test code = 381) 137 meq/L 135-148 POTASSIUM-STAT [id number] 08:03:00* Test Item Value Reference Range Interpretation Comments POTASSIUM (BEAKER) (test code = 379) 3.5 meq/L 3.6-5.5 L HGB/HCT (H&H) - STAT [id number] 08:03:00* Test Item Value Reference Range Interpretation Comments HEMOGLOBIN (BEAKER) (test code = 410) 12.4 g/dL 12.0-15.0 HEMATOCRIT (BEAKER) (test code = 411) 36.0 % 36.0-45.0 HEMOGLOBIN [id number] 10:55:00* Test Item Value Reference Range Interpretation Comments HEMOGLOBIN A1C (BEAKER) (test code = 368) 6.9 % 4.3-6.1 H BASIC METABOLIC [id number] 10:21:00* Test Item Value Reference Range Interpretation [...] DIALYSIS PATIENTS. CBC W/PLT COUNT & AUTO [id number] 10:20:00* Test Item Value Reference Range Interpretation [...] 417) 0.02 K/ L 0. 00-0.20 0.00PROTHROMBIN [id number] 10:16:00* Test Item Value Reference Range Interpretation Comments PROTIME (BEAKER) (test code = 759) 14.0 seconds 11.7-14.7 INR (SALLY) (test code = 370) 1.1 <=5.9 RECOMMENDED COUMADIN/WARFARIN INR THERAPY RANGESSTANDARD DOSE: 2.0 - 3.0 Inclu dinora: PROPHYLAXIS for venous thrombosis, systemic embolization; TREATMENT for alexandra ous thrombosis and/or pulmonary embolus.HIGH RISK: Target INR is 2.5-3.5 for pat ients with mechanical heart valves.
[2019-09-27 20:49] LABS: BASOPHILS % 0.2 % (0.0-1.0); EOSINOPHILS % 0.2 % (0.0-6.0); HEMATOCRIT 27.1 % (34.2-44.1); HEMOGLOBIN 8.5 g/dL (12.0-16.0); LYMPHOCYTES # (AUTO) 0.8 (1.0-3.2); LYMPHOCYTES % 13.3 % (18.0-39.1); MEAN CORPUSCULAR HEMOGLOBIN 29.6 pg (28-32); MEAN CORPUSCULAR HGB CONC 31.4 g/dL (31-35); MEAN CORPUSCULAR VOLUME 94.4 fL (81-99); MONOCYTES # (AUTO) 0.3 (0.2-0.8); MONOCYTES % 4.1 % (4.4-11.3); NEUTROPHILS # (AUTO) 5.2 (2.1-6.9); NEUTROPHILS % 81.9 % (38.7-80.0); PLATELET COUNT 165 x10e3/uL (140-360); RED BLOOD COUNT 2.87 x10e6/uL (3.6-5.1); RED CELL DISTRIBUTION WIDTH 14.1 % (11.7-14.4)
[2019-09-27 20:59] LABS: INR 0.98; PROTHROMBIN TIME 13.6 seconds (11.9-14.5)
[2019-09-27 21:00] LABS: PARTIAL THROMBOPLASTIN TIME 40.8 seconds (23.8-35.5)
[2019-09-27] MEDS ORDERED: MEROPENEM 1GM 100 ML IV ONE (21:00)
[2019-09-27 21:06] LABS: ALANINE AMINOTRANSFERASE 94 IU/L (0-55); ALBUMIN 2.6 g/dL (3.5-5.0); ALBUMIN/GLOBULIN RATIO 0.6 (0.8-2.0); ALKALINE PHOSPHATASE 131 IU/L (40-150); ANION GAP 10.1 mmol/L (8-16); BLOOD UREA NITROGEN 43 mg/dL (7-26); BUN/CREATININE RATIO 70 (6-25); CALCIUM 10.3 mg/dL (8.4-10.2); CARBON DIOXIDE 38 mmol/L (22-29); CHLORIDE 79 mmol/L (98-107); CREATINE KINASE 30 IU/L (29-168); CREATININE, SERUM 0.61 mg/dL (0.57-1.11); EST GLOMERULAR FILTRATION RATE > 60 ML/MIN (60-); GLUCOSE 119 mg/dL (74-118); POTASSIUM 5.1 mmol/L (3.5-5.1); SODIUM 122 mmol/L (136-145)
[2019-09-27 21:14] LABS: B-TYPE NATRIURETIC PEPTIDE2 202.2 pg/mL (0-100)
[2019-09-27 21:20] LABS: BILIRUBIN,URINE NEGATIVE (NEGATIVE); CLARITY,URINE SL CLOUDY (CLEAR); COLOR,URINE STRAW (YELLOW); KETONES,URINE NEGATIVE (NEGATIVE); LEUKOCYTE ESTERASE ,URINE MODERATE (NEGATIVE); NITRITE,URINE NEGATIVE (NEGATIVE); PROTEIN,URINE DIPSTICK 2+ (NEGATIVE); URINE UROBILINOGEN 4 mg/dL (0.2 - 1)
--- NOTE | 2019-09-27 21:23 | Emergency Department Note ---
History of Present Illnes History of Present Illness Chief Complaint: General Medicine Complaints History of Present Illness This is a 59 year old female arrives by way of EMS paramedics or long term with reportedly having hypotension. Patient is normotensive on arrival to ER. Patient is found to be hypothermic on arrival to ER with a temperature of 89.6 rectal. Patient has history of a massive intracerebral hemorrhage has a trach due to chronic respiratory failure lives with a trach collar with oxygen at 5-10 L. . 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 Any updates have been documented here. Past Medical History Recent Fever: No Clinical Suspicion of Infectio: No New/Unexplained Change in Ment: No Past Medical History: Hypertension, Diabetes, CHF, CVA, A-Fib, CAD, Chronic Kidney Disease Other Medical History: H/O HEMORRHAGIC CVA IN 06/2019 WHEN SHE WAS ON COUMADIN (FOR AFIB AND MECH MITRAL VALVE) WITH INR>10, TREATED AT [facility], MOVED TO [facility] 8 DAYS AGO Past Surgical History: CABG Other Surgery: MITRAL VALVE REPLACEMENT Social History Smoking Cessation: Never Smoker Alcohol Use: None Any Illegal Drug Use: No Family History Family history of heart diseas: Yes Other Last Tetanus: UNK Review of Systems ROS Narrative Unable to obtain ROS: Unable to obtain due to, altered mental status (pt at baseline, h/o massive hemorrhagic stroke) Physical Exam Related Data Allergies: Coded Allergies: No Known Allergies (Unverified , 09/13/19) Triage Vital Signs Vital Signs Date Time Temp Pulse Resp B/P (MAP) Pulse Ox O2 Delivery O2 Flow Rate FiO2 09/27/19 20:20 89.8 72 14 105/79 99 Vital signs reviewed: Yes Physical Exam CONSTITUTIONAL Constitutional: Present well-developed, Present well-nourished HENT HENT: Present normocephalic, Present atraumatic, Present oropharynx clear/moist, Present nose normal HENT L/R: Present left ext ear normal, Present right ext ear normal EYES Eyes: Reports PERRL, Reports conjunctivae normal NECK Neck: Present ROM normal, Present other (trach present, on trach collar for supplemental oxygen) PULMONARY Pulmonary: Present effort normal, Present other (decreased breath sounds at base bilateral) CARDIOVASCULAR Cardiovascular: Present regular rhythm, Present heart sounds normal, Present capillary refill normal, Present bradycardia GASTROINTESTINAL Abdominal: Present soft, Present nontender, Present bowel sounds normal GENITOURINARY Genitourinary: Present exam deferred, Present other (indwelling lebron present on arrival) SKIN Skin: Present warm, Present dry, Present other (stage 3 sacral decubitus) MUSCULOSKELETAL Musculoskeletal: Present ROM normal, Present other (mild edema to bilateral hands.) NEUROLOGICAL Neurological: Present alert, Present other (eyes open, no verbal, does not follow commands, this is pt's baseline) PSYCHOLOGICAL Results Laboratory Result Diagram: 09/27/19203709/27/192037 Laboratory Laboratory Tests Test 09/27/19 21:00 09/27/19 20:38 09/27/19 20:34 White Blood Count 6.30 x10e3/uL (4.8-10.8) Red Blood Count 2.87 x10e6/uL (3.6-5.1) Hemoglobin 8.5 g/dL (12.0-16.0) Hematocrit 27.1 % (34.2-44.1) Mean Corpuscular Volume 94.4 fL (81-99) Mean Corpuscular Hemoglobin 29.6 pg (28-32) Mean Corpuscular Hemoglobin Concent 31.4 g/dL (31-35) Red Cell Distribution Width 14.1 % (11.7-14.4) Platelet Count 165 x10e3/uL (140-360) Neutrophils (%) (Auto) 81.9 % (38.7-80.0) Lymphocytes (%) (Auto) 13.3 % (18.0-39.1) Monocytes (%) (Auto) 4.1 % (4.4-11.3) Eosinophils (%) (Auto) 0.2 % (0.0-6.0) Basophils (%) (Auto) 0.2 % (0.0-1.0) Neutrophils # (Auto) 5.2 (2.1-6.9) Lymphocytes # (Auto) 0.8 (1.0-3.2) Monocytes # (Auto) 0.3 (0.2-0.8) Eosinophils # (Auto) 0.0 (0.0-0.4) Basophils # (Auto) 0.0 (0.0-0.1) Absolute Immature Granulocyte (auto 0.02 x10e3/uL (0-0.1) Prothrombin Time 13.6 seconds (11.9-14.5) Prothromb Time International Ratio 0.98 Activated Partial Thromboplast Time 40.8 seconds (23.8-35.5) Sodium Level 122 mmol/L (136-145) Potassium Level 5.1 mmol/L (3.5-5.1) Chloride Level 79 mmol/L (98-107) Carbon Dioxide Level 38 mmol/L (22-29) Anion Gap 10.1 mmol/L (8-16) Blood Urea Nitrogen 43 mg/dL (7-26) Creatinine 0.61 mg/dL (0.57-1.11) Estimat Glomerular Filtration Rate > 60 ML/MIN (60-) BUN/Creatinine Ratio 70 (6-25) Glucose Level 119 mg/dL (74-118) Lactic Acid Level 1.7 mmol/L (0.5-2.0) Calcium Level 10.3 mg/dL (8.4-10.2) Total Bilirubin 0.5 mg/dL (0.2-1.2) Aspartate Amino Transf (AST/SGOT) 145 IU/L (5-34) Alanine Aminotransferase (ALT/SGPT) 94 IU/L (0-55) Alkaline Phosphatase 131 IU/L (40-150) Creatine Kinase 30 IU/L (29-168) Total Protein 6.8 g/dL (6.5-8.1) Albumin 2.6 g/dL (3.5-5.0) Globulin 4.2 g/dL (2.3-3.5) Albumin/Globulin Ratio 0.6 (0.8-2.0) Lab results reviewed: Yes Laboratory comments PT'S COVID 19 TEST NEGATIVE Imaging Imaging results reviewed: Yes Impressions cxr IMPRESSION: Diffuse bilateral airspace opacities, increased from prior exam, representing severe pulmonary edema. Underlying pneumonia cannot be excluded. Moderate bilateral pleural effusions. Signed by: Dr. Graeme Proctor MD on 09/27/2019 9:45 PM Procedures 12 Lead ECG Interpretation ECG Interpretation : ECG: ECG 1 Block Sealer: Interpreted by ED physician Date: Sep 27, 2019 Time: 20:45 Rhythm: sinus bradycardia Rate: bradycardia BPM: 52 QRS axis: normal ST segments normal: Yes T waves normal: Yes Q waves: V1, V2, V3 Clinical Impression: abnormal ECG Additional Comments prolonged qt Central Line Placement Central Line Location: right femoral Time out performed: No Patient Placed on Monitor/Puls: Yes MD Prep: mask, gown, gloves Central Line Prep: Chlorhexidine scrub Local Anesthetic: lidocaine 1% Amount of anesthesia used (mL): 1 Ultrasound Used for Placement: No Central Line Lumen Inserted: triple Post Procedure: sutured in place, good blood return, all ports aspirated/flushed/capped, sterile dressing applied Patient tolerated procedure: well, no complications Complications: none Critical Care Time Total Critical Care Time (min): 45 Critical care time exclusive o: separately billable procedures Critcal care necessary due to: sepsis Critcal care time spent by me: discussion w consultants, discussion w primary provider, interpret cardiac output measures, evaluation patient response to tx, examination of patient, order/perform tx or interventions, order/review laboratory studies, order/review radiographic studies, re-evaluation of patient condition, review of old charts, vascular access procedures Assessment & Plan Medical Decision Making MDM Patient sent from long term with reported hypotension, pt normotensive on arrival. The patient was found to have hypothermia with a temperature of 89.6 rectally on arrival. CBC, CMP, cardiac enzymes, lactic acid, blood cultures, UA, urine culture, chest x-ray, ordered to eval for sepsis, pneumonia, edema, UTI, electrolyte abnormality Multiple warm blankets placed on patient in order to raise patient's core temperature. I SPOKE WITH DR Janet KUMAR, LEFT A MESSAGE FOR DR PARK , AND I SPOKE WITH DR LIZANDRO FLEMING COVERING FOR DR MELÉNDEZ Reassessment Reassessment time: 00:08 Reassessment Patient has not become hypotensive with blood pressure of 68/51 chest x-ray indicates patient could have pulmonary edema or possible pneumonia. Patient had pneumonia last admission when she was discharged on September 16 of this year. At this time I believe patient is in septic shock due to hypothermia and now hypotension. At this time 30 mL/kg normal saline ordered total of 2500 mL ordered to cover the 2200 cc that she needs for the 30 mL/kg. 0150 I DID A BEDSIDE FLUID RESUSCITATION EXAM. VITALS AT THIS TIME HEART RATE 77, RR16, BP 138/67, TEMP 94.1 Assessment & Plan Final Impression: (1) Septic shock (2) Pneumonia (3) CHRONIC RESPIRATORY FAILURE, UNSP W HYPOXIA OR HYPERCAPNIA (4) PLEURAL EFFUSION, NOT ELSEWHERE CLASSIFIED Depart Disposition: ADMITTED Last Vital Signs Date Time Temp Pulse Resp B/P (MAP) Pulse Ox O2 Delivery O2 Flow Rate FiO2 09/27/19 20:20 89.8 72 14 105/79 99 Home Meds Reported Medications Atropine Sulfate (ATROPINE SULFATE) 0.4 Mg/1 Ml Vial, 0.4 MG IV, VIAL 09/13/19 Latanoprost/Pf (Latanoprost 0.005% Eye Drop) 7.5 Ml Drops 09/13/19 Famotidine (FAMOTIDINE) 20 Mg Tab, 20 MG PEG DAILY, #30 TAB 09/13/19 Aspirin (ASPIR 81) 81 Mg Tablet.dr, 81 MG PEG DAILY 09/13/19 Amiodarone Hcl (AMIODARONE HCL) 200 Mg Tablet, 200 MG PEG DAILY 09/13/19 Medications in the ED Meropenem 100 ml @ 100 mls/hr NOW ONCE IV ; Start 09/27/19 at 21:00; Stop 09/27/19 at 21:59 ROSA CHOWDARY MD Sep 27, 2019 21:23
[2019-09-27 21:32] LABS: AMORPHOUS SEDIMENT,URINE MODERATE (FEW); BACTERIA,URINE MODERATE /HPF; EPITHELIAL CELLS,URINE FEW /LPF; TRANSITIONAL EPI CELLS,URINE MODERATE; YEAST,URINE FEW
--- NOTE | 2019-09-27 21:48 | Diagnostic Imaging Report ---
EXAMINATION: CHEST SINGLE (PORTABLE) INDICATION: ^Y ^sob ^[id number] ^[id number] ^Y COMPARISON: 09/17/2019 FINDINGS: AP view TUBES and LINES: Stable tracheostomy tube and partially seen left-sided ventriculoperitoneal shunt. LUNGS: Lungs are well inflated. Diffuse bilateral airspace opacities. PLEURA: Bilateral pleural effusion. No pneumothorax. HEART AND MEDIASTINUM: The cardiomediastinal silhouette is enlarged and mostly obscured. Median sternotomy wires and prosthetic valve. BONES AND SOFT TISSUES: No acute osseous lesion. Soft tissues are unremarkable. UPPER ABDOMEN: No free air under the diaphragm. IMPRESSION: Diffuse bilateral airspace opacities, increased from prior exam, representing severe pulmonary edema. Underlying pneumonia cannot be excluded. Moderate bilateral pleural effusions. Signed by: Dr. Graeme Proctor MD on 09/27/2019 9:45 PM
--- NOTE | 2019-09-27 21:50 | NUR ---
Patient temp. still at 87.2F additional warm blanket & socks in place. Pt awake & alert, VSS.
--- NOTE | 2019-09-27 22:25 | NUR ---
Jose infante applied on top of the pt at this time, current temp 87.1F
[2019-09-27] MEDS ORDERED: SODIUM CHLORIDE 0.9% 500ML 500 ML IV ONE (23:45)
[2019-09-27] MEDS ORDERED: SODIUM CHLORIDE 0.9% 500ML 500 ML ONE (23:48)
[2019-09-28] VITALS (50 sets, daily range): BP systolic 66–123; BP diastolic 36–80
[2019-09-28] MEDS ORDERED: SODIUM CHLORIDE 0.9% 1000ML 2,000 ML ONE (00:15)
[2019-09-28] MEDS ORDERED: SODIUM CHLORIDE 0.9% 1000ML 1,000 ML IV ONE ×2 (00:15→02:15)
[2019-09-28] MEDS ORDERED: SODIUM CHLORIDE 0.9% 1000ML 1,000 ML IV SCH (00:15)
--- NOTE | 2019-09-28 01:23 | NUR ---
Covid test came back negative, Dr Pablo notified.
--- NOTE | 2019-09-28 01:43 | NUR ---
DR CHOWDARY AT BEDSIDE PREPARING FOR A CENTRAL LINE PLACEMENT AT RIGHT GROIN AREA. BP 103/52 HR 73 SAT 95% TEMP. 93.9
[2019-09-28] MEDS ORDERED: NOREPINEPHRINE INJ 4MG/4ML 8 MG in DEXTROSE 5% 250ML 250 ML IV PRN (02:00)
[2019-09-28] MEDS ORDERED: VANCOMYCIN HCL 1GM/NS 250 ML BAG IV SCH (02:15)
[2019-09-28] MEDS: VANCOMYCIN HCL 1GM/NS 250 ML BAG IV SCH (02:35)
[2019-09-28] MEDS ORDERED: MEROPENEM 1GRAM 1 GM in SODIUM CHLORIDE 0.9% 100 ML 100 ML IV SCH ×2 (06:00→08:00)
[2019-09-28] MEDS ORDERED: MEROPENEM 1 GM VIAL ONE (06:09)
[2019-09-28] MEDS ORDERED: MEROPENEM 1GM 100 ML IV ONE (06:12)
[2019-09-28] MEDS ORDERED: PHENYLEPHRINE 10MG/ML VIAL 40 MG in DEXTROSE 5% 250ML 250 ML IV SCH (07:45)
[2019-09-28] MEDS ORDERED: AMIODARONE HCL 900 MG in DEXTROSE 5 % 500ML BOTTLE 482 ML IV SCH (07:45)
[2019-09-28] MEDS ORDERED: AMIODARONE HCL 150 MG/100 ML BAG IV ONE ×2 (08:00→09:15)
[2019-09-28] MEDS: PHENYLEPHRINE 10MG/ML VIAL 40 MG in DEXTROSE 5% 250ML 250 ML IV SCH ×4 (08:45→09:30)
[2019-09-28] MEDS ORDERED: ALBUMIN 25% 25GM 100ML 0.25 GM/ML BTL IV NR (09:45)
[2019-09-28] MEDS ORDERED: VASOPRESSIN 100 UNIT in DEXTROSE 5% 100ML 100 ML IV SCH (10:45)
[2019-09-28 10:58] LABS: CREATINE KINASE MB 2.7 ng/mL (0-5.0)
--- NOTE | 2019-09-28 11:48 | Consultation ---
DATE OF CONSULTATION: Critical Care Consultation REASON FOR CONSULT: ICU management. HISTORY OF PRESENT ILLNESS: Ms. Orlando Rea is a 59-year-old female, very well known to me from [facility]. The patient is noncommunicative at baseline, has eye contact. She has been at [facility] for quite some time. She has a tracheostomy and PEG tube when she is noncommunicative. She has a history of atrial fibrillation, mitral valve replacement, and bypass surgery. She is in persistent vegetative state and has been at [facility] for almost 2 months. She was sent here for hypothermia and shortness of breath. Her chest x-ray suggestive of multilobar pneumonia. She is currently awake, but tachypneic and hypotensive. She has developed atrial fibrillation with rapid ventricular rate. REVIEW OF SYSTEMS: Unable to elicit any review of systems from the patient because of patient's mental status. PAST MEDICAL HISTORY: History of intracerebral hemorrhage, atrial fibrillation, hemiplegia, hemiparesis, cerebral infarction, history of chronic atrial fibrillation, tracheostomy status, and gastrostomy status. FAMILY AND SOCIAL HISTORY: She is not a smoker. Lives at the long-term. PHYSICAL EXAMINATION: VITAL SIGNS: Temperature 98.5, pulse of 109. When she came in, temperature was 87.2. Blood pressure 90/69 and respiratory rate is 18 to 20. CHEST: Crackles bilaterally. HEART: S1 and S2 audible. Tracheostomy. ABDOMEN: Soft. EXTREMITIES: No pedal edema. NEUROLOGICAL: She is in persistent vegetative state and is unable to communicate. LABORATORY DATA: Reviewed. Sodium 122, potassium 5.9, BUN 43, and creatinine 0.6. White count of 6.3 and hemoglobin 8.5. INR is 1.98. Previous bronchial washing grew Serratia marcescens in the bronch wash and was resistant to most of the antibiotics. Meropenem was started. Chest x-ray reviewed multilobar infiltrate. ASSESSMENT/PLAN: Ms. Rea is a 59-year-old female with history of intracranial hemorrhage, stroke per the chart. The patient is in persistent vegetative state, came in with worsening shortness of breath and hypothermia. Lactic acid on admission was normal. Current problem: 1. Multilobar pneumonia. 2. Tracheostomy status. 3. Gastrostomy status. 4. Persistent vegetative state. 5. History of stroke. 6. Atrial fibrillation. PLAN: 1. Mental status remains unchanged, however, the patient is more in distress. I will start the patient on ventilatory support and check ABG. 2. Continue the patient on IV vancomycin and meropenem. The patient previously grew Serratia marcescens, which will be covered. 3. Cardiovascularly, the patient's blood pressure is on the lower side and she is in atrial fibrillation. I have started the patient on amiodarone drip. Phenylephrine has been started. We will consider discontinuing the amiodarone drip if the patient remains hypotensive and continue the phenylephrine. We will add vasopressin as well. 4. Cannot start the patient on DVT prophylaxis with Lovenox because of history of intracranial hemorrhage. SCDs in place. 5. I will start the patient on Pepcid. Tube feeds will be started as well. Discussed with the patient's son at bedside. The patient told me that they want full measures and they are interested in full measures. They want the patient to be full code. Critical care time spent 50 minutes. MD ZACHARY Garcia/CHRISTINE /[id number]
--- NOTE | 2019-09-28 12:14 | NUR ---
patient started postering inward (decorticate) at this time. notified dr. moreno. new orders received. also not responding to addition of vasopressin with sheron. will start levophed per md.
[2019-09-28 12:44] LABS: ANION GAP 16.4 mmol/L (8-16); BLOOD UREA NITROGEN 45 mg/dL (7-26); BUN/CREATININE RATIO 63 (6-25); CALCIUM 9.5 mg/dL (8.4-10.2); CARBON DIOXIDE 28 mmol/L (22-29); CHLORIDE 86 mmol/L (98-107); CREATININE, SERUM 0.72 mg/dL (0.57-1.11); EST GLOMERULAR FILTRATION RATE > 60 ML/MIN (60-); GLUCOSE 86 mg/dL (74-118); POTASSIUM 5.4 mmol/L (3.5-5.1); SODIUM 125 mmol/L (136-145)
[2019-09-28 12:45] LABS: BASOPHILS % 0.1 % (0.0-1.0); EOSINOPHILS % 0.1 % (0.0-6.0); HEMATOCRIT 24.6 % (34.2-44.1); HEMOGLOBIN 7.9 g/dL (12.0-16.0); LYMPHOCYTES # (AUTO) 0.9 (1.0-3.2); LYMPHOCYTES % 6.8 % (18.0-39.1); MEAN CORPUSCULAR HEMOGLOBIN 30.3 pg (28-32); MEAN CORPUSCULAR HGB CONC 32.1 g/dL (31-35); MEAN CORPUSCULAR VOLUME 94.3 fL (81-99); MONOCYTES # (AUTO) 1.7 (0.2-0.8); NEUTROPHILS # (AUTO) 11.2 (2.1-6.9); NEUTROPHILS % 80.4 % (38.7-80.0); PLATELET COUNT 182 x10e3/uL (140-360); RED BLOOD COUNT 2.61 x10e6/uL (3.6-5.1); RED CELL DISTRIBUTION WIDTH 14.6 % (11.7-14.4)
--- NOTE | 2019-09-28 13:50 | Diagnostic Imaging Report ---
CT BRAIN WO HISTORY: Posturing COMPARISON: None. TECHNIQUE: Noncontrast axial scans were obtained from skull base to the vertex. Coronal and sagittal reconstructions obtained from the axial data. One or more of the following dose reduction techniques were used: Automated exposure control, adjustment of the mA and/or kV according to patient size, and/or utilization of iterative reconstruction technique. Beam hardening artifacts obscure some details. DISCUSSION: Scalp/Skull: Suboccipital craniectomy changes and bifrontal marylu holes are present. Brain sulci: Appropriate for patient's age. Ventricles: The lateral and third ventricles are slitlike. Left frontal approach ventricular shunt catheter terminates near the anterior third ventricle. Extra-axial spaces: Approximately 1.1 cm thick crescentic hypodense fluid collection along the craniectomy defect does not exert significant mass effect. No additional extra-axial masses or fluid collections. Parenchyma: Bilateral paramedian cerebellar encephalomalacia is associated with ex vacuo dilatation of the fourth ventricle. The right inferior cerebellum slightly protrudes into the craniectomy defect. The midbrain has a slightly sagging appearance. There is mild crowding of the basilar cisterns. Otherwise, no mass, hemorrhage, or large vascular territory acute infarct. Dural sinuses: No abnormal densities. Sellar/Suprasellar region: Intact. Skull base: Intact. Incidental findings: Layering fluid in the nasopharynx/nasal cavity is partially imaged. There are associated bilateral mastoid/middle ear effusions. IMPRESSION: 1. Slitlike ventricles, slightly sagging midbrain, and mild crowding of the basilar cisterns. Correlate for intracranial hypotension/over shunting. Left frontal approach ventricular shunt catheter terminates near the anterior third ventricle. 2. Approximately 1.1 cm thick crescentic hypodense fluid collection along the suboccipital craniectomy defect may be a pseudomeningocele. No significant mass effect. 3. Otherwise, no acute intracranial abnormalities. 4. Bilateral paramedian cerebellar encephalomalacia, related to prior surgery. Signed by: Dr. Davi Morrell M.D. on 09/28/2019 1:46 PM
--- NOTE | 2019-09-28 14:34 | Diagnostic Imaging Report ---
EXAM: CT Chest, Abdomen and Pelvis WITHOUT contrast INDICATION: ^[id number] ^1250 ^R/O POSSIBLE BLEED COMPARISON: Chest radiograph 09/27/2019, CT chest 09/13/2019 TECHNIQUE: Chest, abdomen and pelvis were scanned utilizing a multidetector helical scanner from the lung apex to the pubic symphysis without administration of IV contrast. Coronal and sagittal reformations were obtained. Routine protocol was performed. IV CONTRAST: None. ORAL CONTRAST: None RADIATION DOSE: Total DLP: 2375 mGy*cm Estimated effective dose: (DLP x 0.015 x size factor) mSv COMPLICATIONS: None FINDINGS: LINES and TUBES: Endotracheal tube remains unchanged. PEG tube within the stomach. No surrounding fluid collections at the entrance site. Peritoneal dialysis catheter with tip in the anterior abdominal cavity. No surrounding fluid collections. Right femoral approach central venous catheter appears in adequate position. A Kent catheter within the urinary bladder. LUNGS AND AIRWAYS: Bilateral lower lobes consolidation with volume loss consistent with atelectasis, improved since prior exam. Small clusters of tree-in-bud pulmonary nodules seen in the right upper lobe and to a lesser extent in the left upper lobe (series 5, images 22-26), new since prior CT chest. Airways are normal. PLEURA: Small low-attenuation bilateral pleural effusions decreased since CT chest from 09/13/2019, status post thoracentesis. HEART AND MEDIASTINUM: The thyroid gland is normal. Few mildly prominent noncalcified mediastinal lymph nodes, measuring up to 1.2 cm in transverse diameter remaining stable. Cardiomegaly. Status post mitral valve repair. There is no pericardial effusion. The thoracic aorta and normal in size. The main pulmonary arteries borderline in size, measuring 3 cm in diameter. Coronary artery calcifications. HEPATOBILIARY: No focal hepatic lesions. No biliary ductal dilation. GALLBLADDER: Cholecystectomy. SPLEEN: No splenomegaly. PANCREAS: No focal masses or ductal dilatation. ADRENALS: No adrenal nodules KIDNEYS/URETERS: No hydronephrosis. No cystic or solid mass lesions. No stones. GI TRACT: Large amount of retained stool throughout the colon and rectum. The rectum is distended with associated wall thickening and is prolapsing through the anus. The remaining bowel is normal in caliber. Scattered diverticulosis throughout the sigmoid colon without diverticulitis. PELVIC ORGANS/BLADDER: Unremarkable. LYMPH NODES: No lymphadenopathy. VESSELS: Unremarkable. PERITONEUM / RETROPERITONEUM: No free air or fluid. BONES: Unremarkable. SOFT TISSUES: Anasarca. IMPRESSION: 1. Large amount of retained stools throughout the colon and rectum. Dilated rectum with wall thickening, which is protruding through the anus. This may be the source of the patient's bleeding. Recommend direct visualization. 2. Scattered diverticulosis without diverticulitis. 3. Diffuse anasarca. 4. Tree-in-bud pulmonary nodules in the right upper lobe, new since prior CT and suggestive of atypical infection or aspiration. Signed by: Dr. Lily Saldivar M.D. on 09/28/2019 2:31 PM
[2019-09-28] MEDS: MEROPENEM 1 GM IV SCH ×2 (15:18→21:49)
[2019-09-28] MEDS: HYDROCORTISONE SOD SUCCINATE 100 MG VIAL IV SCH ×2 (15:18→21:49)
[2019-09-28 15:52] LABS: ABG HCO3 34 mmol/L (22-26); ABG PCO2 46 mmHg (35-45); ABG PH 7.48 (7.35-7.45); ABG PO2 122 mmHg (80-105)
[2019-09-28 18:39] LABS: CREATINE KINASE MB 2.1 ng/mL (0-5.0)
[2019-09-28] MEDS: VASOPRESSIN 60 UNIT in DEXTROSE 5% 100ML 57 ML IV SCH (20:09)
[2019-09-29] VITALS (76 sets, daily range): BP systolic 77–118; BP diastolic 49–72
[2019-09-29] MEDS: VANCOMYCIN HCL 1GM/NS 250 ML BAG IV SCH (02:09)
[2019-09-29] MEDS ORDERED: NOREPINEPHRINE 8 MG/D5W 250 ML 250 ML ONE (03:48)
[2019-09-29 05:47] LABS: BASOPHILS % 0.2 % (0.0-1.0); HEMATOCRIT 23.3 % (34.2-44.1); HEMOGLOBIN 7.6 g/dL (12.0-16.0); LYMPHOCYTES # (AUTO) 0.7 (1.0-3.2); MEAN CORPUSCULAR HGB CONC 32.6 g/dL (31-35); MEAN CORPUSCULAR VOLUME 92.1 fL (81-99); MONOCYTES # (AUTO) 0.6 (0.2-0.8); MONOCYTES % 3.2 % (4.4-11.3); NEUTROPHILS # (AUTO) 16.2 (2.1-6.9); NEUTROPHILS % 91.9 % (38.7-80.0); PLATELET COUNT 141 x10e3/uL (140-360); RED BLOOD COUNT 2.53 x10e6/uL (3.6-5.1); RED CELL DISTRIBUTION WIDTH 14.7 % (11.7-14.4)
[2019-09-29] MEDS: HYDROCORTISONE SOD SUCCINATE 100 MG VIAL IV SCH ×3 (05:56→22:00)
[2019-09-29] MEDS: MEROPENEM 1 GM IV SCH ×3 (05:56→22:00)
[2019-09-29 06:23] LABS: ALANINE AMINOTRANSFERASE 103 IU/L (0-55); ALBUMIN 2.9 g/dL (3.5-5.0); ALBUMIN/GLOBULIN RATIO 0.9 (0.8-2.0); ALKALINE PHOSPHATASE 90 IU/L (40-150); ANION GAP 22.1 mmol/L (8-16); BLOOD UREA NITROGEN 47 mg/dL (7-26); BUN/CREATININE RATIO 47 (6-25); CARBON DIOXIDE 21 mmol/L (22-29); CHLORIDE 86 mmol/L (98-107); EST GLOMERULAR FILTRATION RATE > 60 ML/MIN (60-); GLUCOSE 303 mg/dL (74-118); POTASSIUM 5.1 mmol/L (3.5-5.1); SODIUM 124 mmol/L (136-145)
[2019-09-29] MEDS: PHENYLEPHRINE 10MG/ML VIAL 40 MG in DEXTROSE 5% 250ML 250 ML IV SCH (08:00)
--- NOTE | 2019-09-29 08:46 | NUR ---
patient tolerating levophed 12mcg at this time. map>65. sheron and vaso are off prior to start of day shift (0645). large amounts of oral secretions. pt nonresponsive/facial grimacing and shutting jaw with suctioning.
[2019-09-29] MEDS ORDERED: DEXTROSE 50% SYRINGE 50 ML IV PRN (10:00)
[2019-09-29] MEDS: PANTOPRAZOLE SODIUM 40 MG SUSPDR.PKT PO SCH (10:23)
[2019-09-29] MEDS: HEPARIN SOD (PORCINE) 5,000 UNIT/ML VIAL SC SCH ×2 (10:43→21:26)
[2019-09-29] MEDS: VASOPRESSIN 60 UNIT in DEXTROSE 5% 100ML 57 ML IV SCH (11:00)
[2019-09-29] MEDS ORDERED: INSULIN LISPRO 100 UNIT/1 ML 3ML VIAL SQ SCH (11:30)
--- NOTE | 2019-09-29 14:03 | NUR ---
[id number] patient was seen on 09/28/2019 consult dictated today orderers discussed with medical team
--- NOTE | 2019-09-29 14:33 | Progress Note ---
DATE: SUBJECTIVE: Orlando is seen today. She seems to be a little bit more alert. Her vital seems to be better. LABORATORY DATA: Her urine showing yeast. Her blood cultures still pending. Her white count 17.6 and hemoglobin 7.6. Her sodium 124. PHYSICAL EXAMINATION: GENERAL: She is noncommunicative. VITAL SIGNS: Stable, currently afebrile. HEENT: She is not icteric. NECK: Supple. CHEST: Few crackles bilateral. COR: S1 and S2. No S3, S4, or murmurs. ABDOMEN: Soft. IMPRESSION: 1. Sepsis on admission, clinically better. 2. Pneumonia healthcare-associated, on meropenem and vancomycin. 3. Funguria. We will add Diflucan. 4. Continue supportive care. Other medical problems as above. We will follow. MD KATHERINE Tejeda/CHRISTINE /[id number]
--- NOTE | 2019-09-29 15:03 | Consultation ---
DATE OF CONSULTATION: HISTORY OF PRESENT ILLNESS: The patient has sepsis pneumonia. The patient was seen on the September 27; however, it was dictated later reason for consultation was pneumonia. The patient is a 59-year-old female, who is from [facility], noncommunicative. She had tracheostomy. She has a PEG tube, comes in with fever, shortness of breath. She recently was here with pneumonia. The patient also has history of atrial fibrillation, mitral valve replacement, bypass surgery. The patient states she was in [facility] for several months at least two. She comes in with worsening condition of shortness of breath and cough. I was contacted by emergency room. The patient was seen and examined on the . This was dictated later as mentioned above. PAST MEDICAL HISTORY: Intracerebral hemorrhage, atrial fibrillation, hemiplegia, hemiparesis, infarction, atrial fibrillation, tracheostomy, gastrostomy. PAST SURGICAL HISTORY: As above. ALLERGIES: NKA. SOCIAL HISTORY: From [facility]. FAMILY HISTORY: Could not be obtained. REVIEW OF SYSTEMS: Could not be obtained. PHYSICAL EXAMINATION: GENERAL: She is noncommunicative. VITAL SIGNS: Stable. Currently afebrile. HEENT: Not icteric. NECK: Supple. CHEST: Crackles bilateral. COR: S1, S2. No murmur. ABDOMEN: Soft. LABORATORY DATA: Her COVID-19 was negative. Sodium 125, potassium 5.4, creatinine 0.72. White count is 13.8, hemoglobin 7.9. Chest x-ray reviewed. IMPRESSION: 1. Sepsis, present on admission. 2. Aspiration pneumonia. 3. Healthcare-associated pneumonia. Agree with meropenem. Agree with vancomycin. Agree with supportive care. 4. The patient is hypotensive. IV fluids and vasopressors. 5. Chronic respiratory failure. 6. Status post tracheotomy. 7. Status post gastrostomy tube. 8. Vegetative state. 9. History of cerebrovascular accident. 10. History of atrial fibrillation. Continue with the current choice of antibiotic as ordered. Follow vancomycin trough. Obtain sputum for culture and sensitivity. Recheck CBC. Recheck Chem panel. Discussed with the medical team. We will follow with you. Further recommendation depending on clinical progress. MD KATHERINE Tejeda/MODL :02:26 /[id number]
[2019-09-29] MEDS: FLUCONAZOLE 200 MG/100 ML 100 ML IV SCH (15:34)
[2019-09-29] MEDS ORDERED: FUROSEMIDE INJ 10 MG/ML 2 ML VIAL IV PRN (18:00)
[2019-09-29] MEDS ORDERED: SODIUM CHLORIDE 0.9% 250ML 250 ML IV ONE (18:15)
[2019-09-29] MEDS: INSULIN LISPRO 100 UNIT/1 ML 3ML VIAL SQ SCH (18:36)
--- NOTE | 2019-09-29 19:00 | NUR ---
nursing report given to shiftman RN
[2019-09-30] VITALS (42 sets, daily range): BP systolic 85–101; BP diastolic 57–74
[2019-09-30] MEDS ORDERED: SODIUM CHLORIDE 0.9% 250ML 250 ML ONE (00:26)
[2019-09-30] MEDS: VANCOMYCIN HCL 1GM/NS 250 ML BAG IV SCH (02:17)
[2019-09-30] MEDS ORDERED: FUROSEMIDE INJ 10 MG/ML 4 ML VIAL ONE (03:25)
[2019-09-30 05:54] LABS: BASOPHILS % 0.1 % (0.0-1.0); LYMPHOCYTES # (AUTO) 0.7 (1.0-3.2); LYMPHOCYTES % 4.8 % (18.0-39.1); MEAN CORPUSCULAR HEMOGLOBIN 28.8 pg (28-32); MEAN CORPUSCULAR HGB CONC 33.3 g/dL (31-35); MEAN CORPUSCULAR VOLUME 86.3 fL (81-99); MONOCYTES # (AUTO) 0.8 (0.2-0.8); MONOCYTES % 5.1 % (4.4-11.3); NEUTROPHILS # (AUTO) 13.4 (2.1-6.9); NEUTROPHILS % 89.3 % (38.7-80.0); PLATELET COUNT 129 x10e3/uL (140-360); RED BLOOD COUNT 3.13 x10e6/uL (3.6-5.1); RED CELL DISTRIBUTION WIDTH 14.7 % (11.7-14.4)
[2019-09-30] MEDS: MEROPENEM 1 GM IV SCH ×3 (06:00→21:35)
[2019-09-30] MEDS: INSULIN LISPRO 100 UNIT/1 ML 3ML VIAL SQ SCH ×4 (06:00→17:35)
[2019-09-30] MEDS: HYDROCORTISONE SOD SUCCINATE 100 MG VIAL IV SCH ×3 (06:00→21:35)
[2019-09-30 06:07] LABS: INR 1.1; PROTHROMBIN TIME 14.9 seconds (11.9-14.5)
[2019-09-30 06:27] LABS: BLOOD UREA NITROGEN 41 mg/dL (7-26); BUN/CREATININE RATIO 51 (6-25); CALCIUM 8.9 mg/dL (8.4-10.2); CARBON DIOXIDE 24 mmol/L (22-29); CHLORIDE 93 mmol/L (98-107); CREATININE, SERUM 0.81 mg/dL (0.57-1.11); EST GLOMERULAR FILTRATION RATE > 60 ML/MIN (60-); GLUCOSE 152 mg/dL (74-118); SODIUM 131 mmol/L (136-145)
[2019-09-30] MEDS: PANTOPRAZOLE SODIUM 40 MG SUSPDR.PKT PO SCH (08:25)
--- NOTE | 2019-09-30 08:35 | Diagnostic Imaging Report ---
EXAM: CHEST SINGLE (PORTABLE) DATE: 09/30/2019 8:00 AM INDICATION: Chronic respiratory distress COMPARISON: 09/27/2019 FINDINGS: Tracheostomy cannula identified in stable position. Post surgical changes from prior median sternotomy and cardiac valve replacement again noted. There is a stable small to moderate right-sided and trace left-sided pleural effusion. Again identified are grossly stable appearing bilateral airspace opacities. There is no evidence for new large focal consolidation or pneumothorax. The cardiomediastinal silhouette remains enlarged. No acute osseous abnormality is identified. IMPRESSION: Stable appearing bilateral airspace opacities which can be seen in setting of edema or a atypical infectious/inflammatory process. Stable right greater than left-sided pleural effusions Signed by: Dr. Layo Joy MD on 09/30/2019 8:32 AM
[2019-09-30] MEDS ORDERED: POTASSIUM CHLORIDE 20MEQ/15ML UDC NG ONE ×3 (09:30→14:00)
[2019-09-30] MEDS: HEPARIN SOD (PORCINE) 5,000 UNIT/ML VIAL SC SCH ×2 (10:08→21:35)
[2019-09-30 11:05] LABS: CREATINE KINASE MB 0.7 ng/mL (0-5.0)
--- NOTE | 2019-09-30 11:51 | NUR ---
PT IS ON ORA AT [facility], WILL RETURN THERE WHEN ABLE TO DISCHARGE.
--- NOTE | 2019-09-30 14:31 | NUR ---
WOUND CARE CONSULT FOR 59 YO FEMALE HX OF RESP FAILURE,CORRECTION NESHA 10 ON STRICT PUP STATUS AND INTERVENTIONS AND ALTERNATING PRESSURE MATTRESS LABS: WBC-15.02 HGB_9 GLUCOSE-152 SKIN ASSESSMENT COMPLETE PATIENT PRESENTS WITH HX OF STAGE 3 ULCERATION NOW PRESENTS WITH 75% YELLOW SLOUGH SURFACE COVERING WOUND MEASURES 4CM X6CM RECOMMENDATIONS: NURSING TO CONTINUE TO MAINTAIN STRICT PUP STATUS AND INTERVENTIONS AND ALTERNATING PRESSURE MATTRESS NURSING TO CONTINUE TO ASSIST PATIENT NEEDED WITH MEALS AND NUTRITIONAL SUPPLEMENTS TO ENSURE PROPER REQUIREMENTS FOR HEALING NURSING TO CONTINUE TO OFFLOAD FEET AND HEELS NEEDED WITH PILLOW SUSPENSION WHEN IN BED NURSING TO CLEAN SACRAL STAGE 3 ULCER WITH NORMAL SALINE DAILY AND APPLY SANTYL OINTMENT COVER WITH 4X4 AND ALLEVYN FOAM DRESSING Addendum: 09/30/19 at 1436 by Boni Lima RN Amended: Links added.
[2019-09-30] MEDS: FLUCONAZOLE 200 MG/100 ML 100 ML IV SCH (15:23)
--- NOTE | 2019-09-30 16:44 | NUR ---
Nutrition Intervention Note RD Recommendation(s) for Physician: -Recommend modifying formula to Vital AF 1.2 @ goal rate of 45 mL/hr to better meet estimated nutritional needs at this time (provided 1296 kcal and 81 g protein) -Fluid management per MD Plan of Care: RD following, monitoring for tolerance and adequacy, tube feed recommendation Nutrition reason for involvement: enteral nutrition and pressure ulcer RD Assessment (09/30/19) Pt is a 59 year old female admitted with chronic respiratory failure, hypothermia, pleural effusion, pneumonia, and septic shock. Pt is noncommunative and has a trach and PEG. Pt is currently mechanically ventilated and receiving tube feeding. Per weight history in chart, pt weighed 160 lbs from a previous admission in August 2019. Pt currently has a weight of 133 lbs in chart. If accurate, this would be considered significant weight loss in 1 month. Recommendations provided. Will continue to monitor. Principal Problems/Diagnoses: chronic respiratory failure, hypothermia, pleural effusion, pneumonia, and septic shock PMH: intracerebral hemorrhage, atrial fibrillation, hemiplegia, hemiparesis, cerebral infarction, chronic atrial fibrillation, tracheostomy status, and gastrostomy status I/O:2440/1775 GI: soft, non-tender abdomen Skin: stage 3 sacrum pressure ulcer Labs: (09/29) Na 131, K 3.0, BUN 41, Cr 0.81, Glu 152 Meds: antibiotics, heparin, lasix, norepinephrine, insulin Ht: 61 inches Wt: 133 lbs BMI: 25.1 kg/m2 IBW: 105 lbs Malnutrition Evaluation (09/30/19) Unable to fully assess. Will re-evaluate at follow-up as appropriate. Energy intake: Unable to assess Weight loss: >5% in 1 month (Acute) per weight history in chart Fat loss: unable to evaluate Muscle loss: unable to evaluate Supporting Evidence: Fluid accumulation: unable to evaluate Functional Status: unable to evaluate Nutrition Prescription (Diet Order): Glucerna 1.5 @ 40 mL/hr (provides 1440 kcal, 79 g protein) Estimated Nutritional Needs: 1534-4896 calories/day (18-20 kcal/kg CBW) 73-120 g protein/day (1.2-2 g pro/kg CBW) Diet Adequacy: Meeting calorie needs, Meeting protein needs Tolerance: Tolerating TF Diet Education Needs Assessment: Diet education not indicated, patient on temporary/transition diet. Nutrition Care Level: high Nutrition Diagnosis: Inadequate oral intake related to medical status as evidenced by need for enteral nutrition Goal: Patient will meet 75-100% of estimated needs by follow up Progress: N/A Interventions: Composition, Rate, Route, Recommended Modifications Monitoring/Evaluation: -Total energy intake, Total protein intake, Formula/Solution, Weight change Signed: Ro Pyle RD, LD
[2019-09-30] MEDS: COLLAGENASE 5 GM TUBE TOP SCH (17:34)
--- NOTE | 2019-09-30 18:39 | Progress Note ---
DATE: SUBJECTIVE: Ms. Perry is continued to be improving. She is in intensive care unit. She has been seen by Wound Care. REVIEW OF SYSTEMS: HEENT: Negative. PULMONARY: Negative. CARDIAC: Negative. PHYSICAL EXAMINATION: GENERAL: She is alert, noncommunicative. VITAL SIGNS: Stable, afebrile. HEENT: Not icteric. NECK: Supple. CHEST: Clear. COR: S1 and S2. No S3, S4, or murmur. ABDOMEN: Soft. LABORATORY DATA: Her urine showing yeast. Her white count is 15.02, which is coming down and her hemoglobin 9. IMPRESSION: Sepsis on admission, seems to be improving; pneumonia, healthcare-associated, improving; funguria. Continue Diflucan. Continue current choice of IV antibiotic for 8 days. Reassess in the morning. MD KATHERINE Tejeda/CHRISTINE /[id number]
--- NOTE | 2019-09-30 18:45 | NUR ---
Report received. Assumed care. Assessment done. See interventions. Trach to vent. Vent settings: TV 400, FIO2 45%, PRVC 12 & PEEP 5. PEG tube with Glucerna 1.5 @ 30ml/hr.
[2019-10-01] VITALS (11 sets, daily range): BP systolic 89–111; BP diastolic 65–78
[2019-10-01] MEDS: INSULIN LISPRO 100 UNIT/1 ML 3ML VIAL SQ SCH ×3 (00:07→12:00)
[2019-10-01] MEDS: VANCOMYCIN HCL 1GM/NS 250 ML BAG IV SCH (02:22)
[2019-10-01] MEDS: COLLAGENASE 5 GM TUBE TOP SCH (04:00)
[2019-10-01] MEDS: MEROPENEM 1 GM IV SCH (05:33)
[2019-10-01] MEDS: HYDROCORTISONE SOD SUCCINATE 100 MG VIAL IV SCH (05:33)
[2019-10-01] MEDS: PANTOPRAZOLE SODIUM 40 MG SUSPDR.PKT PO SCH (07:30)
[2019-10-01 08:37] LABS: BASOPHILS % 0.1 % (0.0-1.0); HEMATOCRIT 28.7 % (34.2-44.1); HEMOGLOBIN 9.4 g/dL (12.0-16.0); LYMPHOCYTES # (AUTO) 0.6 (1.0-3.2); LYMPHOCYTES % 6.1 % (18.0-39.1); MEAN CORPUSCULAR HEMOGLOBIN 29.1 pg (28-32); MEAN CORPUSCULAR HGB CONC 32.8 g/dL (31-35); MEAN CORPUSCULAR VOLUME 88.9 fL (81-99); MONOCYTES # (AUTO) 0.4 (0.2-0.8); MONOCYTES % 4.3 % (4.4-11.3); PLATELET COUNT 100 x10e3/uL (140-360); RED BLOOD COUNT 3.23 x10e6/uL (3.6-5.1); RED CELL DISTRIBUTION WIDTH 15.5 % (11.7-14.4)
[2019-10-01 08:50] LABS: ALANINE AMINOTRANSFERASE 71 IU/L (0-55); ALBUMIN 2.7 g/dL (3.5-5.0); ALBUMIN/GLOBULIN RATIO 0.8 (0.8-2.0); ALKALINE PHOSPHATASE 89 IU/L (40-150); ANION GAP 15.1 mmol/L (8-16); BLOOD UREA NITROGEN 42 mg/dL (7-26); BUN/CREATININE RATIO 55 (6-25); CALCIUM 9.3 mg/dL (8.4-10.2); CARBON DIOXIDE 26 mmol/L (22-29); CHLORIDE 97 mmol/L (98-107); CREATININE, SERUM 0.76 mg/dL (0.57-1.11); EST GLOMERULAR FILTRATION RATE > 60 ML/MIN (60-); GLUCOSE 220 mg/dL (74-118); POTASSIUM 4.1 mmol/L (3.5-5.1); SODIUM 134 mmol/L (136-145)
--- NOTE | 2019-10-01 08:52 | Progress Note ---
DATE: 10/01/2019 CHIEF COMPLAINT/HISTORY OF PRESENT ILLNESS: This is a 59-year-old woman, whose primary treating diagnosis is mgjas-da-ssoisvx respiratory failure secondary to bilateral gram-negative sheri pneumonia. Sputum culture does reveal yeast species though. On admission, the coronavirus test was negative. Yesterday, September 30, 2019, the patient's white blood cell count was 15,000 with 89% segmented neutrophils. Yesterday's potassium was 3.0. REVIEW OF SYSTEMS: As per HPI. PHYSICAL EXAMINATION: GENERAL: She is in a vegetative state, nonresponsive. VITAL SIGNS: BMI is 27, blood pressure is 105/75, pulse 76, respiratory rate is 12, temperature 97.4, oxygen saturation is 100% with FiO2 of 40%. She is currently on a ventilator via tracheostomy with AC mode. INTEGUMENT: Skin is warm and dry. The patient has stage III sacral wound. No jaundice or diaphoresis. HEENT: Anicteric sclerae. NECK: Supple. She has tracheostomy tube in place, connected to ventilator. CARDIOVASCULAR: Regular rate and rhythm. LUNGS: The patient has crackles bilaterally. ABDOMEN: Soft. She has G-tube in place, which is functional. EXTREMITIES: No edema or deformity. NEUROLOGICAL: She is in a persistent vegetative state. DIAGNOSES: 1. Cubnz-uc-pyvkydm respiratory failure. 2. Bilateral gram-negative sheri pneumonia. 3. Ahqjo-wk-gvfifcl diastolic congestive heart failure. 4. History of large intercerebral and cerebellar hemorrhage (June 25, 2019). 5. Paroxysmal atrial fibrillation. 6. History of mitral valve replacement. 7. Persistent vegetative state. 8. Anemia secondary to chronic disease. PLAN: 1. Continue intravenous antibiotics. 2. Continue respiratory care. 3. We will be cautious with anticoagulation since the patient has history of devastating intracerebral hemorrhage in June 2019, but at this time, we will continue subcutaneous heparin to prevent deep venous thrombosis. 4. Nutritional support. 5. This patient would definitely benefit from hospice care. I spent 30 minutes in the care of this intensive care unit patient. MD VAL Davidson/CHRISTINE /[id number] MTDD
[2019-10-01] MEDS: HEPARIN SOD (PORCINE) 5,000 UNIT/ML VIAL SC SCH (09:00)
--- NOTE | 2019-10-01 15:55 | Consultation ---
DATE OF CONSULTATION: HISTORY OF PRESENT ILLNESS: A 59-year-old female with history of cerebral vascular injury. Currently, she has been in unchanged for at least 3 months. She is not able to provide any past medical history, social history, review of systems etc given her clinical status. PHYSICAL EXAMINATION: VITAL SIGNS: However, blood pressure is 114/80, heart rate is 70 and regular. She is afebrile. HEENT: Extraocular muscles are intact to Doll's. Pupils are reactive. No nuchal rigidity. She is . ABDOMEN: Soft. CARDIOVASCULAR: Regular rate and rhythm. PULMONARY: Clear. NEURO: Cranial nerve exams seems symmetric. She has posture with noxious stimulation. Reflexes are brisk. Toes are upgoing. ASSESSMENT AND PLAN: I am seeing patient with persistent vegetative state status post cerebrovascular . MD HOLLAND SANCHEZ/MODL /[id number]
[2019-10-01] MEDS ORDERED: HYDROCORTISONE SOD SUCCINATE 100 MG VIAL IV SCH (18:00)
--- NOTE | 2019-10-01 18:30 | Progress Note ---
DATE: SUBJECTIVE: This is a 59-year-old female, who has history of acute on chronic respiratory failure, comes in with sepsis and pneumonia. She is currently in intensive care unit, looking better. REVIEW OF SYSTEMS: HEENT: Negative. Review of systems could not be obtained. PHYSICAL EXAMINATION: GENERAL: She is currently alert. VITAL SIGNS: Stable, currently afebrile. HEENT: Not icteric. NECK: Supple. CHEST: Few crackles bilateral. COR: S1 and S2. ABDOMEN: Soft. IMPRESSION: 1. Sepsis, improving associated with healthcare associated pneumonia. 2. Funguria. 3. She is currently on meropenem and vancomycin to finish 8 days of antibiotic. We will follow. MD KATHERINE Tejeda/MODL /[id number]
--- NOTE | 2019-10-01 20:46 | NUR ---
Dictated DC summary: [id number]
--- NOTE | 2019-10-02 07:28 | Discharge Summary ---
ADMIT DIAGNOSES: 1. Sepsis secondary to pneumonia. 2. Acute on chronic respiratory failure. 3. Multilobar pneumonia, likely gram-negative sheri. 4. Persistent vegetative state. 5. History of intracerebral hemorrhage in June 2019. 6. Atrial fibrillation. 7. Acute on chronic diastolic congestive heart failure. 8. Stage 3 sacral decubitus ulcer. DISCHARGE DIAGNOSES: 1. Sepsis secondary to pneumonia, resolving. 2. Acute on chronic respiratory failure. 3. Bilateral gram-negative sheri pneumonia. 4. Acute on chronic diastolic congestive heart failure. 5. History of large intercerebral and cerebellar hemorrhage (June 25, 2019). 6. Paroxysmal atrial fibrillation. 7. History of mitral valve replacement. 8. Persistent vegetative state. 9. Anemia secondary to chronic disease. 10. Stage 3 sacral decubitus ulcer. 11. Acute on chronic anemia requiring blood transfusion. 12. Fungal urinary tract infection. HOSPITAL COURSE: This is a 59-year-old woman, who was transferred from a local detention namely the [facility] because of acute on chronic respiratory failure. On admission, she was found to have sepsis secondary to bilateral gram-negative pneumonia. She is also found to have acute on chronic diastolic congestive heart failure. The patient was placed on a ventilator specifically AC mode during this hospitalization. The patient was started on intravenous antibiotics for her bilateral pneumonia, namely meropenem, vancomycin. She was also started on intravenous norepinephrine for her hypertension secondary to sepsis. The patient also received wound care during this hospitalization because of her stage 3 sacral decubitus ulcer. The decision was made to transfer the patient to [facility] hospital because our current hospital namely [facility] was in dire need of intensive care unit beds to help care for COVID-19 infected critically ill patients. The patient was transfused 1 unit of packed red cells during this hospitalization. Also during this hospitalization sputum culture as well as urine culture revealed yeast species thus she was started on intravenous fluconazole. Also, on admission the patient was swabbed for COVID-19 viral infection and the results were negative. CONDITION ON DISCHARGE: Her condition on transfer was stable with an overall poor prognosis. DISCHARGE MEDICATIONS: 1. Solu-Medrol 40 mg intravenous every 2 hours. 2. Meropenem 1 g intravenous every 8 hours. 3. Collagenase applied to the sacral wound daily. 4. Vancomycin 1 g intravenous daily. 5. Fluconazole was 200 mg intravenous daily. 6. Furosemide after blood transfusion. 7. Norepinephrine drip. 8. Humalog insulin sliding scale. 9. Pantoprazole 40 mg by mouth daily. FOLLOWUP INSTRUCTIONS: As previously stated, the patient was transferred to the intensive care unit at [facility] in [facility]. MD VAL Davidson/CHRISTINE /[id number] MTDD
== END 2019-10-01 16:56 | disposition short-term general hospital (02) | DRG 871 ==
LOC: ER 20:18 → ERHOLD 09-28 02:58 → ICU 09-28 05:54
PROC: 5A1945Z Respiratory Ventilation, 24-96 Consecutive Hours (ICD-10-PCS; principal; 2019-09-28)
PROC: 30233N1 Transfusion of Nonautologous Red Blood Cells into Peripheral Vein, Percutaneous Approach (ICD-10-PCS; 2019-09-30)
DX: A41.9 Sepsis, unspecified organism (principal); L89.153 Pressure ulcer of sacral region, stage 3; I50.33 Acute on chronic diastolic (congestive) heart failure; J15.6 Pneumonia due to other Gram-negative bacteria; J69.0 Pneumonitis due to inhalation of food and vomit; R65.21 Severe sepsis with septic shock; J96.22 Acute and chronic respiratory failure with hypercapnia; J96.21 Acute and chronic respiratory failure with hypoxia; B37.49 Other urogenital candidiasis; D62 Acute posthemorrhagic anemia; I11.0 Hypertensive heart disease with heart failure; Z79.01 Long term (current) use of anticoagulants; I48.0 Paroxysmal atrial fibrillation; Z95.2 Presence of prosthetic heart valve; D63.8 Anemia in other chronic diseases classified elsewhere; Z93.0 Tracheostomy status; Z86.73 Personal history of transient ischemic attack (TIA), and cerebral infarction without residual deficits; I95.9 Hypotension, unspecified; Z11.59 Encounter for screening for other viral diseases; Z93.1 Gastrostomy status
CPT/HCPCS: 36415; 36600; 70450; 71045; 71250; 74176; 80048; 80053; 81001; 82550; 82553; 82805; 82948; 83605; 83880; 84484; 85025; 85610; 85730; 86850; 86900; 86920; 87040; 87070; 87086; 87205; 87635; 93005; 94002; 94003; 94640; 95812; 96372; 99251; 99285; J1450; J1644; J1720; J1940; J2185; J2370; J3370; J7030; J7040; J7050; P9016; P9047